=== PATIENT | female | born 1945 | race Caucasian/White ===

== ENCOUNTER 2020-04-07 15:20 | Outpatient (REF) | payer MEDICARE, SELFPAY ==
--- NOTE | 2020-04-07 15:22 | CT_ITS ---
EXAMINATION: CT CHEST WITHOUT CONTRAST CLINICAL INFORMATION: Follow-up pulmonary nodule COMPARISON: Previous chest CT scans most recent January 2015 and going back to June 2017 TECHNIQUE: Multidetector volumetric CT imaging of the chest was done. Axial MIP volume rendering provided. Sagittal and coronal reformatted images were obtained. This CT examination was performed using dose optimization techniques as appropriate, variously including the following: *Automated exposure control *Adjustment of mA and/or kV according to patient size (this includes techniques or standardized protocols for targeted exams where dose is matched to indication/reason for exam; i.e. extremities or head) *Use of iterative reconstruction technique DLP: 185 mGy-cm FINDINGS: LUNGS: There is a groundglass attenuation nodule in the right upper lobe. This is gradually increasing in size compared to prior exams. This measures 1 x 1.7 cm in AP and transverse dimension axial image 175 series 7 compared to 1.1 x 1.2 cm and measures 1.3 cm in longitudinal dimension sagittal reconstructed image 70 compared to 1 cm on January 2019 exam. There is a small partially calcified right upper lobe nodule measuring 3 mm axial image 132 series 7 that is stable. There is a 3 mm noncalcified right lower lobe nodule axial image 399 series 7 that is stable. No new pulmonary nodule is seen. MEDIASTINUM: There are no enlarged hilar or mediastinal lymph nodes. The heart does not appear enlarged. There is mild coronary artery calcification. There is no pericardial effusion. The thoracic aorta is normal in caliber. PLEURA: There is no pleural effusion. No pleural mass or thickening. AXILLA: No lymphadenopathy. UPPER ABDOMEN: The right kidney is absent. OSSEOUS STRUCTURES: There are degenerative changes of the spine. There is a sclerotic lesion in the left T10 vertebral bodies that is stable. CT/CT chest wo con IMPRESSION: Slight interval increase in size in the groundglass attenuation nodule in the right upper lobe. Other small pulmonary nodules are stable. Mild coronary artery calcification.
== END 2020-04-07 15:21 | disposition home or self-care (01) ==
LOC: HO.CT 15:20
PROVIDERS: PCP Family Medicine; Visit Provider Family Medicine
DX: R91.1 Solitary pulmonary nodule (principal)
CPT/HCPCS: 71250

== ENCOUNTER → 2020-12-12 12:43 | Outpatient (BNVA) | payer MEDICARE, SELFPAY | PROVIDERS: Referring Provider Family Medicine; Visit Provider Nurse Practitioner | DX: Z12.11 Encounter for screening for malignant neoplasm of colon (principal); J44.9 Chronic obstructive pulmonary disease, unspecified; I49.9 Cardiac arrhythmia, unspecified; Z80.0 Family history of malignant neoplasm of digestive organs | CPT/HCPCS: 99212 ==

== ENCOUNTER 2020-12-18 08:25 | Outpatient (REF) | payer MEDICARE, SELFPAY ==
[2020-12-18 08:57] LABS: MANUAL DIFF FLAG NO
[2020-12-18 09:00] LABS: Basophils Percent Auto 0.4 % (0-2); Eosinophils Absolute Auto 0.2 X10*3/uL (0.0-0.4); Eosinophils Percent Auto 1.4 % (0-4); Hematocrit 39.9 % (37-47); Hemoglobin 12.6 g/dl (12.0-16.0); Imm Gran Abs Auto 0.05 X10*3/uL (0.00-0.03); Imm Gran Pct Auto 0.4 % (0.0-0.4); Lymphocytes Absolute Auto 4.3 X10*3/uL (1.2-4.9); Lymphocytes Percent Auto 38.6 % (20-40); Mean Corpuscular HGB Conc 31.6 g/dl (31.0-35.0); Mean Corpuscular Hemoglobin 28.4 pg (27.0-33.0); Mean Corpuscular Volume 89.9 fL (80-98); Mean Platelet Volume 9.8 fL (9.4-12.3); Monocytes Absolute Auto 0.7 X10*3/uL (0.1-1.2); Monocytes Percent Auto 6.3 % (2-11); Neutrophils Absolute Auto 5.9 X10*3/uL (2.0-8.3); Neutrophils Percent Auto 52.9 % (45-73); Platelet Count 336 X10*3/uL (160-400); Red Blood Count 4.44 X10*6/uL (4.20-5.50); Red Cell Distribution Width 14.1 % (11.0-16.0); White Blood Count 11.2 X10*3/uL (4.8-10.8)
[2020-12-18 09:41] LABS: Alanine Aminotransferase 10 U/L (0-31); Albumin Level 4.4 g/dL (3.5-5.0); Alkaline Phosphatase 67 U/L (39-117); Anion Gap 12 (12-20); Aspartate Amino Transferase 13 U/L (5-31); Bilirubin Total 0.4 mg/dL (0.0-1.0); Blood Urea Nitrogen 13 mg/dL (9-16); Calcium 9.4 mg/dL (8.4-10.2); Carbon Dioxide 28 mmol/L (22-29); Chloride 104 mmol/L (96-108); Estimated Glomerular Filt Rate > 60; Glucose Random 122 mg/dL (60-115); Potassium 4.9 mmol/L (3.3-5.1); Sodium 139 mmol/L (135-145)
== END 2020-12-18 08:26 | disposition home or self-care (01) ==
LOC: HO.LAB 08:25
PROVIDERS: PCP Family Medicine; Visit Provider Nurse Practitioner
DX: Z12.11 Encounter for screening for malignant neoplasm of colon (principal); Z80.0 Family history of malignant neoplasm of digestive organs
CPT/HCPCS: 36415; 80053; 85025

== ENCOUNTER 2021-06-02 10:26 | Outpatient (REF) | payer MEDICARE, SELFPAY ==
--- NOTE | ~2021-06-02 | MM_ITS ---
EXAMINATION: MM SCREENING DIGITAL BREAST TOMOSYNTHESIS, BILATERAL CLINICAL INFORMATION: Screening. Asymptomatic. The lifetime risk of breast cancer based on the Tyrer-Cuzick Model is 2%. COMPARISON: Mammography: 12/26/2018, 11/04/2017, 04/27/2016 TECHNIQUE: Digital breast tomosynthesis is performed in both the craniocaudal and mediolateral oblique views along with computer-aided detection (CAD). Synthesized 2D images are generated from the tomosynthesis. Additional bilateral CC views are provided. FINDINGS: There are scattered areas of fibroglandular density (ACR BI-RADS breast composition Category b). Breast tissue composition borders on predominantly fatty. Background stromal and fibroglandular densities are stable. There is no interval mass or architectural abnormality. Again, there are scattered bilateral ductal secretory and vascular and a few punctate round calcifications. No significant calcifications. The axilla and skin contours are unremarkable. MM/MM tomosynthesis screening BI IMPRESSION: No mammographic evidence of malignancy. ASSESSMENT: BI-RADS 2: Benign RECOMMENDATION: Routine annual mammography screening. This patient's information was entered into a reminder system with a target due date for their next mammogram.
== END 2021-06-02 10:27 | disposition home or self-care (01) ==
LOC: HO.MAMMO 10:26
PROVIDERS: PCP Family Medicine; Visit Provider Family Medicine
DX: Z12.31 Encounter for screening mammogram for malignant neoplasm of breast (principal)
CPT/HCPCS: 77063; 77067

== ENCOUNTER 2021-08-31 08:08 | Day surgery (SDC) | payer MEDICARE, SELFPAY ==
--- NOTE | 2021-08-31 09:18 | MHC.SHP ---
Pre-Procedural Eval Section A Date of Service: 08/31/21 Section B Chief Complaint: screening Details of Present Illness: Colon cancer screening, family history of colon cancer Relevant Family History (Specify if Yes): Yes Relevant Social History: Tobacco Use Present Medications: see Short Stay Collaborative assessment Medical History: Significant History (Arrhythmia COPD (chronic obstructive pulmonary disease) Depression Elevated cholesterol GERD (gastroesophageal reflux disease) HTN (hypertension) Hx of renal calculi Pre-diabetes) History of Previous Operations: Relevant previous surgery/procedure and date(s) (History of right nephrectomy Hx of cholecystectomy Hx of colonoscopy Hx of hysterectomy) Allergies: Allergies Allergy/AdvReac Type Severity Reaction Status Date / Time No Known Allergies Allergy Verified 08/26/21 09:38 [No Known Allergies*] Review of Systems Sugical H&P ROS: Negative: Constitution, Cardiovascular, Respiratory and Gastrointestinal Exam Surgical H&P Exam: Normal: Heart, Normal: Lungs, Normal: Extremities and Normal: Abdomen Plan Diagnosis/Plan: Unchanged I have reviewed the history and physical and performed a pertinent physical examination on my patient. No changes have occurred unless specified.
--- NOTE | 2021-08-31 09:21 | P.OP_ITS ---
Operative Note Operative Note Date of Service: 08/31/21 Narrative: Pre-op diagnosis: Colon cancer screening, family history of colon cancer (sister of colon cancer at age 57 Yrs) Post-op diagnosis:?other (Colon polyps, diverticulosis, hemorrhoid) Procedure: COLONOSCOPY TILL CECUM WITH SNARE POLYPECTOMY AND HEMOCLIP PLACEMENT Consent: Indications for the procedure and potential complications of bleeding, perforation, reaction to medications and missed diagnosis were discussed with the patient and informed consent was obtained. Instrument: Olympus CF H 190 L variable stiffness adult colonoscope Monitoring: Vital signs and clinical assessment, intermittent blood pressure monitoring, continuous EKG monitoring, Pulse oximetry and Carbon Dioxide monitoring were done throughout the procedure. Colon withdrawl time was 14 minutes. Procedure: The patient was placed in the left lateral decubitis position and pre-procedure medications were administered. After a digital rectal examination of the ano-rectum, the video colonoscope was inserted into the rectum and advanced through the colon to the cecum. The colonoscope was slowly withdrawn in a retrograde panoramic fashion and the colon mucosa was carefully examined including a retroflexed view of the rectum. Findings and interventions are described below. Procedure Difficulty:? LLQ pressure applied to intubate the cecum Findings: Terminal Ileum: Not evaluated Cecum:? Patially evaluated due to fair to poor prep in the right colon Ascending Colon:? Patially evaluated due to fair to poor prep in the right colon Transverse Colon:? Normal Descending Colon:? Normal Sigmoid Colon:? Moderate diverticulosis Rectum:? A 10 mm sessile polyp seen on retroflexed exam of the rectum removed with a cold snare. Some bleeding noted from the polypectomy site controlled with placement of a hemoclip. A few 4-5 mm diminutive polyps in the rectum - hyperplastic on past biopsies. Ano-rectum:? Moderate internal hemorrhoids Colon preparation:? Good after copious irrigation in the left colon and Fair to poor in the right colon Impression and Post Procedure Diagnosis: Colonoscopy Findings: One medium sized polyp removed Moderate diverticulosis seen in the sigmoid colon Moderate hemorrhoids on retroflexed exam. Plan: Await pathology results Patient has an appointment on 09/11/21 in the GI Clinic with? Nahomi Mario NP. Repeat Colonoscopy interval based on path results - in 3 years if polyps are ad enomatous and due to fair to poor prep (Dulcolax 2 tablets daily x 5 days before colonoscopy and adult colonoscope for future colonoscopies). Above findings were reviewed with the patient and colon polyps and diverticulosis handouts were given in the discharge area Surgeon: Dorian Mcbride MD Anesthesia:?MAC (Dr Barrientos) Was an Final Inspector Balance Wheel used for this Procedure?:?No Final Inspector Balance Wheel:?Yadira Womack Estimated blood loss (mL):?1 Pathology:?other (A. rectal polyp) Condition:?stable Disposition:?PACU
--- NOTE | 2021-08-31 09:39 | P.CONAN_ITS ---
[facility] Active Problems Active Problems: All Active Problems (Updated 08/26/21 @ 10:02 by Wanda Horne RN) Colon cancer screening (Acute) Family history of colon cancer (Acute) Arrhythmia (Acute) COPD (chronic obstructive pulmonary disease) (Acute) Past Medical History Medical History Allergic rhinitis Arrhythmia COPD (chronic obstructive pulmonary disease) Depression Elevated cholesterol GERD (gastroesophageal reflux disease) HTN (hypertension) Hx of renal calculi Pre-diabetes Smoker Surgical History Surgical History History of right nephrectomy Hx of cholecystectomy Hx of colonoscopy Hx of hysterectomy History of Problems with Anesthesia: No Social History Social History Patient Tobacco Use Status: Current everyday Tobacco user Tobacco use type: Cigarette Cigarette Packs Per Day: 1 Cigarettes Per Day: 5 Years Smoked: 50 Second Hand Smoke Exposure: No Use of substances other than those prescribed or required for medical reasons: No Are you DNR?: No Advance Directives: No Advance Directives Information Provided: Yes Meds Allergies Allergy/AdvReac Type Severity Reaction Status Date / Time No Known Allergies Allergy Verified 08/31/21 09:43 [No Known Allergies*] Home Medications Medication Instructions Recorded Confirmed Last Taken Type albuterol sulfate 90 mcg/actuation 2 puff INHALATION Q4-6H PRN 02/13/20 08/26/21 Unknown History aerosol inhaler (ProAir HFA) amitriptyline 75 mg tablet 75 mg PO BEDTIME 02/13/20 08/26/21 Unknown History aspirin 81 mg tablet 81 mg PO DAILY 02/13/20 08/26/21 Unknown History cetirizine 10 mg tablet 10 mg PO DAILY 02/13/20 08/26/21 Unknown History cholecalciferol (vitamin D3) 25 25 mcg PO DAILY 02/13/20 08/26/21 Unknown History mcg (1,000 unit) tablet (Vitamin D3) docusate sodium 100 mg capsule 100 mg PO BEDTIME 02/13/20 08/26/21 Unknown History hydrochlorothiazide 25 mg tablet 25 mg PO DAILY 02/13/20 08/26/21 Unknown History hydroxyzine HCl 25 mg tablet 25 mg PO TID PRN 02/13/20 08/26/21 Unknown History losartan 100 mg tablet 100 mg PO DAILY 02/13/20 08/26/21 Unknown History sertraline 25 mg tablet 25 mg PO DAILY 02/13/20 08/26/21 Unknown History simvastatin 20 mg tablet 20 mg PO BEDTIME 02/13/20 08/26/21 Unknown History tiotropium bromide 18 mcg capsule 1 cap INHALATION DAILY 02/13/20 08/26/21 Unkno wn History with inhalation device (Spiriva with HandiHaler) trazodone 150 mg tablet 150 mg PO BEDTIME 02/13/20 08/26/21 Unknown History fluticasone propionate 110 1 puff INHALATION BID 08/26/21 08/26/21 Unknown History mcg/actuation HFA aerosol inhaler (Flovent HFA) Exam Exam Date and Time: August 31, 2021 0939 Airway Mallampati Class: III TM Dist: >3cm Neck ROM: Full Denture: Upper Loose/Missing/Broken Teeth: Yes and Upper Heart: RRR Lungs: CTA Assessment and Plan Assessment Anesthesia Assessment: Anesthesia Plan Discussed and Chart Reviewed Final Anesthetic Review History of Problems with Anesthesia: No NPO: Yes ASA Class: III Final Preanesthetic Review: Meds/Allgs Chart Reviewed, Consent Obtained/Reviewed and Anes Risks/Benef Reviewed Patient Risk: Intermediate Procedure Risk: Low Anesthetic Plan Anesthetic Plan: MAC: Disposition: Standard PACU
[2021-08-31 09:45] VITALS: BMI 31.4
[2021-08-31 09:59] VITALS: BP 162/63; PULSE 70; RESP 16; TEMP 36.6; O2SAT 98
[2021-08-31] MEDS: Albuterol Sulfate (0.083%) 2.5 MG/3 ML VIAL.NEB INHALE (10:14)
[2021-08-31 10:17] VITALS: PULSE 67; RESP 18; O2SAT 95
[2021-08-31 11:07] VITALS: BP 116/51; PULSE 67; RESP 20; TEMP 36.6; O2SAT 99
[2021-08-31 11:22] VITALS: BP 128/77; PULSE 67; RESP 16; TEMP 36.6; O2SAT 98
== END 2021-08-31 12:21 | disposition home or self-care (01) ==
PROVIDERS: PCP Family Medicine; Visit Provider Internal Medicine Gastroenterology
PROC: 0DJD8ZZ Inspection of Lower Intestinal Tract, Via Natural or Artificial Opening Endoscopic (ICD-10-PCS; CPT 45378; principal; 2021-08-31 10:00)
DX: Z12.11 Encounter for screening for malignant neoplasm of colon (principal); Z86.010 Personal history of colon polyps; Z80.0 Family history of malignant neoplasm of digestive organs; D12.8 Benign neoplasm of rectum; K57.30 Diverticulosis of large intestine without perforation or abscess without bleeding; K64.8 Other hemorrhoids; J44.9 Chronic obstructive pulmonary disease, unspecified; E78.00 Pure hypercholesterolemia, unspecified; I49.9 Cardiac arrhythmia, unspecified; R73.03 Prediabetes; J30.9 Allergic rhinitis, unspecified; Z90.49 Acquired absence of other specified parts of digestive tract; Z90.5 Acquired absence of kidney; F17.210 Nicotine dependence, cigarettes, uncomplicated
CPT/HCPCS: 45385; 88305

== ENCOUNTER → 2021-09-15 13:07 | Outpatient (BNVA) | payer MEDICARE, SELFPAY | PROVIDERS: PCP Family Medicine; Visit Provider Nurse Practitioner | DX: D12.6 Benign neoplasm of colon, unspecified (principal); Z80.0 Family history of malignant neoplasm of digestive organs | CPT/HCPCS: 99212 ==

== ENCOUNTER 2021-09-24 12:34 | Outpatient (REF) | payer MEDICARE, SELFPAY ==
--- NOTE | ~2021-09-24 | CT_ITS ---
EXAMINATION: CT CHEST WITHOUT CONTRAST CLINICAL INFORMATION: Follow up lung nodule. COMPARISON: CT of the chest done on 04/07/2020, 01/11/2019 and baseline study dated 07/06/2017. TECHNIQUE: Multidetector volumetric CT imaging of the chest was done. Axial MIP volume rendering provided. Sagittal and coronal reformatted images were obtained. This CT examination was performed using dose optimization techniques as appropriate, variously including the following: *Automated exposure control *Adjustment of mA and/or kV according to patient size (this includes techniques or standardized protocols for targeted exams where dose is matched to indication/reason for exam; i.e. 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 LUNGS: The index groundglass nodule (181:7) at right upper lobe of the lung posterolateral-superiorly adjacent to the right major fissure is reidentified, currently measures approximately 2.0 cm at its maximum dimension, previously 1.4 cm (my measurement). Specific note is made of interval development of solid nodular component. The findings are concerning for evolving lung neoplasm (in the adenocarcinomatous spectrum). Follow-up interventional radiology consultation for possible image guided biopsy and/or PET CT study as appropriate is recommended. Persistent stable sub-5 mm nodule within the right lung apex posteriorly (140:7), right lower lobe of the lung posteromedially (408: 7), and subtle nodular opacity at the superior segment of the left lower lobe of the lung posteromedially (232:7) appear unchanged. MEDIASTINUM: There are no pathologically enlarged mediastinal or hilar lymphadenopathy, unchanged. Atherosclerotic aorta and coronary arterial calcifications appears stable. No evidence of any pericardial effusion. No evidence of any aortic aneurysm. PLEURA: There is no pleural effusion. No pleural mass or thickening. AXILLA: No lymphadenopathy. UPPER ABDOMEN: Postsurgical changes are noted within the right of the right kidney similar to prior study dated 04/07/2020. No of any soft tissue mass to suspect local disease recurrence at the surgical bed. There is no adrenal mass present. OSSEOUS STRUCTURES: Persistent stable sclerotic lesion at T10 vertebral body, unchanged since 07/06/2017. CT/CT chest wo con IMPRESSION: 1. Abnormal study. The indexed groundglass nodule at right upper lobe of the lung posterolaterally-superiorly adjacent to the right major fissure is reidentified, shows interval increase in size as well as interval development of a solid nodular component, suspicious for evolving lung neoplasm (in the adenocarcinomas spectrum). Follow-up interventional radiology consultation for possible image guided biopsy and/or PET CT study as appropriate is recommended. 2. No CT evidence of any abnormal mediastinal or hilar lymphadenopathy. No other significant interval change since most recent prior study dated 04/07/2020. Fleischner guidelines were followed.
== END 2021-09-24 12:35 | disposition home or self-care (01) ==
LOC: HO.CT 12:34
PROVIDERS: Visit Provider Family Medicine
DX: R91.1 Solitary pulmonary nodule (principal)
CPT/HCPCS: 71250

== ENCOUNTER → 2021-10-09 08:57 | Outpatient (BNVA) | payer MEDICARE, SELFPAY | PROVIDERS: PCP Family Medicine; Visit Provider Surgery | DX: R91.1 Solitary pulmonary nodule (principal); F17.210 Nicotine dependence, cigarettes, uncomplicated; Z71.6 Tobacco abuse counseling | CPT/HCPCS: 99202 ==

== ENCOUNTER 2021-10-14 14:51 | Outpatient (REF) | payer OTHER, SELFPAY ==
--- NOTE | 2021-10-14 15:43 | PFT_ITS ---
INDICATION: Lung nodule. SPIROMETRY: FEV1 to FVC of 83% with an FEV1 of 1.63 L, which is 78% of predicted and an FVC of 1.87 L which is 72% of predicted. No significant response to bronchodilators noted. Maximum voluntary ventilation 59% predicted. LUNG VOLUMES: Total lung capacity 68% predicted. DIFFUSION CAPACITY: DLCO 58% predicted. Take note that the diffusion capacity does correct to 84% when corrected for the alveolar volume. COMPARISON: No PFTs available. INTERPRETATION: There is no obstructive ventilatory defect. No significant response to bronchodilators noted. Moderate decrease in maximum voluntary ventilation secondary to deconditioning, although cannot rule out neuromuscular conditions. The patient does have a restrictive ventilatory defect consistent with mild restrictive lung disease. In addition to that, there is a moderate diffusion impairment. This diffusion impairment does correct to normal when correcting for the alveolar volume. Clinical correlation warranted. Fred Garcia MD MR/MODL / [id number]
== END 2021-10-14 14:52 | disposition home or self-care (01) ==
LOC: HO.RESP 14:51
PROVIDERS: PCP Family Medicine; Visit Provider Surgery
DX: Z01.818 Encounter for other preprocedural examination (principal); R91.1 Solitary pulmonary nodule
CPT/HCPCS: 94060; 94727; 94729

== ENCOUNTER → 2021-10-21 09:49 | Outpatient (BNVA) | payer OTHER, SELFPAY | PROVIDERS: PCP Family Medicine; Referring Provider Family Medicine; Visit Provider Internal Medicine Cardiovascular Disease | DX: Z01.810 Encounter for preprocedural cardiovascular examination (principal); I10 Essential (primary) hypertension; F17.210 Nicotine dependence, cigarettes, uncomplicated | CPT/HCPCS: 93005; 99202 ==

== ENCOUNTER → 2021-10-26 07:21 | Outpatient (REF) | payer OTHER, SELFPAY ==
--- NOTE | ~2021-10-26 | NM_ITS ---
Exercise Myocardial perfusion study Indication: Chest pain and preoperative cardiovascular risk stratification Technique: The patient was brought in for an exercise perfusion study on 10/26/2021. Patient performed exercise as per Galo protocol and was injected 30 mCi of sestamibi was given intravenously one target HR was achieved. Images were obtained using the SPECT gamma camera interlaced with the gating device. Images were obtained in supine position. Resting perfusion study was performed on 10/27/2021. Patient was administered 30 mCi of sestamibi intravenously at rest. Images were then obtained in supine position. Images obtained with and without CT attenuation. Total DLP 111 mGy-cm. Images were processed with the software and compared side to side in short axis, horizontal long axis and vertical long axis views. Findings: The stress perfusion study showed both attenuated as well as non attenuated images show normal uptake of radiotracer in all segments of LV myocardium. The gated study shows normal LV systolic function with calculated LVEF of 71%. LV cavity is normal in in size. The gated study shows normal systolic wall thickening and contraction of all segments. There is no transient ischemic dilation. Resting study shows non attenuated images show normal uptake of radiotracer in all segments of LV myocardium. Gating at rest reveals normal systolic wall motion with ejection fraction at 73%. The findings are consistent with normal myocardial perfusion. NM/NM cardiolite stress test Impression: 1. Normal myocardial perfusion 2. Gated LVEF is 71% 3. Transient ischemic dilatation not present Stress EKG is negative for ischemia at workload achieved
--- NOTE | 2021-10-26 07:25 | CA_ITS ---
Acquisition Time: 2021-10-26 08:19:06 Total Exercise Time: 00:05:00 Test Indications: Pre-Op Evaluation Medications: AMLODIPINE ASA ALBUTEROL CETRIZINE FLOVENT FLONASE HCTZ LOSARTAN SIMVASTATIN TRAZADONE Protocol: DOUG Max HR: 134 BPM 93% of Pred: 143 BPM Max BP: 150/070 mmHG Max Work Load: 5.6 METS Exercise stress test with exercise 5 min of Doug protocol, ( last 1.5 min speed reduced to 2 mph) achieving 93% MPHR, with mild sob, no chest discomfort, with isolated PVC, with normotensive response to exercise, without EKG changes meeting criteria for ischemia. Nuclear images pending. Test reviewed with Dr La Referred By: Bala La Overread By: ANGIE LOVETT
--- NOTE | 2021-10-26 07:25 | CA_ITS ---
Transthoracic Echocardiogram Patient (Last, First, Middle): Kim Hood, Gender: Female Date of : 1945 Age: 76 Procedure Date: 10/26/2021 Procedure Type: Transthoracic Echocardiogram Location: OP Height: 162.56 cm Weight: 88.91 kg BSA: 1.94 m2 Heart Rate: bpm BP: 138 / 82 mmHg Lithographing Machine Operator: MEGHANA Referring MD: Bala La MD Network Technical Analyst: Bala La MD Symptoms: Z01.810 - Encounter for preprocedural cardiovascular examination Study Quality: Fair ECG Rhythm: Sinus Conclusions: - 1. Normal LV systolic function with impaired relaxation filling pattern 2. Normal cardiac valvular Doppler 3. Normal RV systolic pressure 4. No gross pericardial effusion Findings Left Ventricle Normal left ventricular size, thickness, and systolic function. The visually estimated ejection fraction is between 60-65%. Spectral Doppler is indicative of an impaired relaxation filling pattern. E/E prime ratio is between 8 and 15 consistent with indeterminate filling pressures. Wall Motion Rest Echo Findings The basal inferior and basal inferoseptal segments are hypokinetic. All other scored wall segments showed normal motion. Right Ventricle Normal right ventricular cavity size and systolic function. Atria The left atrium is normal in size. There is lipomatous hypertrophy of the interatrial septum. Interatrial shunt cannot be excluded. Aortic Valve The aortic valve was not well visualized. There is no aortic valve stenosis. There is no aortic valve regurgitation. Mitral Valve Likely normal mitral valve structure and function. There is trace mitral valve regurgitation. There is no mitral valve stenosis. Pulmonic Valve The pulmonic valve was not well visualized. Tricuspid Valve Likely normal tricuspid valve structure and function. There is trace tricuspid valve regurgitation. The right ventricular systolic pressure is normal. The right ventricular systolic pressure is 22 mmHg. Normal right atrial pressure. There is no evidence of pulmonary hypertension. Great Vessels The aorta was not well visualized. The pulmonary artery was not well visualized. Venous The inferior vena cava is normal in size and collapses greater than 50% with inspiration. Pericardium/Pleural There is no evidence of pericardial effusion. Prior Study Comparison No prior study available for comparison. Measurements 2D Linear Measurements IVSd: 1.07 0.6-0.9/0.6-1.0 cm LVIDd: 4.25 3.9-5.3/4.2-5.9 cm LVIDd Index: 2.19 2.4-3.2/2.2-3.1 cm/m2 LVIDs: 3.14 2.0-3.6 cm LVPWd: 0.90 0.7-1.1 cm LA Diam: 2.70 2.7-3.8/3.0-4.0 cm LAIDs Index: 1.39 1.5-2.3 cm/m2 LV Mass: 170.31 67-162/88-224 g LV Mass Index: 87.79 43-95/49-115 g/m2 LVOT Diam: 2.00 3.0+(-)1.3 cm 2D Systolic Function EF 4C: 62.90 >55% EF 2C: 64.90 >55% EF BiP: 63.40 >55% Mitral Valve MV Pk E: 0.85 MV PK A: 1.01 MV Decel Time: 235.00 E/A: 0.80 E'Lateral: 10.10 E'Medial: 8.05 E/E' Med: 10.50 E/E' Lat: 8.40 PHT: 69.00 MVA PHT: 3.19 Decel Gooding: 3.61 Aortic Valve AoV Pk Abundio: 1.62 AoV Mn Abundio: 1.12 AoV VTI: 0.35 AoV Pk Grad: 10.00 Aov Mn Grad: 6.00 FEDERICO Cont.VTI: 2.42 LVOT LVOT Pk Abundio: 1.15 LVOT Mn Abundio: 0.78 LVOT VTI: 0.27 LVOT Pk Grad: 5.00 LVOT Mn Grad: 3.00 LVOT Diam: 2.00 LVOT Area: 3.14 Diastolic Function MV Pk E: 0.85 MV Pk A: 1.01 E/A: 0.80 E'Medial: 8.05 E/E' Med: 10.50 E' Laterial: 10.10 E/E' Lat: 8.40 Right Ventricle TAPSE (mm): 17.90 TVS' Abundio: 10.30 Tricuspid Valve TR Pk Abundio: 2.16 TR Pk Grad: 19.00 RA Press: 3.00 RVSP: 22.00 Great Vessels Aorta Sinus of Valsalva: 3.23 2.0-3.5 cm Ao Asc: 3.40 2.1-3.4 cm Ao Arch: 2.90 Updated in Other Vendor System with Status of Final Bala La MD electronically signed on 10/26/2021 4:35:41 PM with status of Final
== END ==
LOC: HO.CARD 07:21
PROVIDERS: Visit Provider Internal Medicine Cardiovascular Disease
DX: Z01.810 Encounter for preprocedural cardiovascular examination (principal); R07.9 Chest pain, unspecified
CPT/HCPCS: 78452; 93017; 93306; A9500

== ENCOUNTER → 2021-10-28 09:58 | Outpatient (BNVA) | payer OTHER, SELFPAY | PROVIDERS: PCP Family Medicine; Visit Provider Hospitalist | DX: Z01.811 Encounter for preprocedural respiratory examination (principal); J44.9 Chronic obstructive pulmonary disease, unspecified; R91.1 Solitary pulmonary nodule; F17.210 Nicotine dependence, cigarettes, uncomplicated | CPT/HCPCS: 99202 ==

== ENCOUNTER → 2022-02-25 09:41 | Outpatient (BNVA) | payer OTHER, SELFPAY | PROVIDERS: PCP Family Medicine; Visit Provider Hospitalist | DX: C34.90 Malignant neoplasm of unspecified part of unspecified bronchus or lung (principal); J44.9 Chronic obstructive pulmonary disease, unspecified; R91.1 Solitary pulmonary nodule | CPT/HCPCS: 99212 ==

== ENCOUNTER 2022-05-13 09:36 | Outpatient (REF) | payer OTHER, SELFPAY ==
--- NOTE | ~2022-05-13 | CT_ITS ---
EXAMINATION: CT CHEST WITHOUT CONTRAST CLINICAL INFORMATION: Solitary pulmonary nodule COMPARISON: CT chest 09/24/2021 TECHNIQUE: Multidetector volumetric CT imaging of the chest was done. Axial MIP volume rendering provided. Sagittal and coronal reformatted images were obtained. This CT examination was performed using dose optimization techniques as appropriate, variously including the following: *Automated exposure control *Adjustment of mA and/or kV according to patient size (this includes techniques or standardized protocols for targeted exams where dose is matched to indication/reason for exam; i.e. extremities or head) *Use of iterative reconstruction technique DLP: 217 mGy-cm FINDINGS: LABOR OPERATOR: Expanded lungs without acute process. LUNGS: Previously seen right upper lobe groundglass 2 cm nodule has been surgically removed. There are postsurgical changes along the right upper lobe with reduction of right lung volume and mild ipsilateral mediastinal shift. The right upper lobe fine nodule posterior apex and right lower lobe nodule described on the previous study are not visualized at this time. Nodule described in the left upper lobe is also not visualized. No new nodules visualized MEDIASTINUM: The heart size and the great vessels are normal caliber. No pericardial effusion seen. No abnormal size mediastinal or hilar lymph nodes seen. Central trachea and the bronchi widely patent. Thyroid lobes are symmetrical and normal. CORONARY ARTERY CALCIFICATION: Trace coronary artery calcification is seen. PLEURA: There is no pleural effusion. No pleural mass or thickening. AXILLA: No lymphadenopathy. UPPER ABDOMEN: Visualized liver, spleen, pancreas and bilateral adrenal glands are unremarkable. OSSEOUS STRUCTURES: There is mild ventral spondylosis throughout dorsal spine. No aggressive lytic or sclerotic process seen. There is a sclerotic lesion T10 vertebra question bone island. CT/CT chest wo IV con IMPRESSION: Status post right upper lobe partial resection with postoperative changes. Previously seen 2 cm groundglass nodule and right lung apex fine nodules are not visualized at this time. Also previously visualized left lower lobe nodule is not seen at this time. No new nodules. No abnormal mediastinal or axillary lymphadenopathy. Fleischner guidelines were followed.
== END 2022-05-13 09:37 | disposition home or self-care (01) ==
LOC: HO.CT 09:36
PROVIDERS: PCP Family Medicine; Visit Provider Hospitalist
DX: R91.1 Solitary pulmonary nodule (principal)
CPT/HCPCS: 71250

== ENCOUNTER → 2022-05-21 08:52 | Outpatient (BNVA) | payer OTHER, SELFPAY | PROVIDERS: PCP Family Medicine; Visit Provider Surgery | DX: C34.11 Malignant neoplasm of upper lobe, right bronchus or lung (principal); Z87.891 Personal history of nicotine dependence | CPT/HCPCS: 99212 ==

== ENCOUNTER 2022-06-08 10:00 | Outpatient (REF) | payer OTHER, SELFPAY ==
--- NOTE | ~2022-06-08 | MM_ITS ---
EXAMINATION: MM SCREENING DIGITAL BREAST TOMOSYNTHESIS, BILATERAL CLINICAL INFORMATION: Screening. Asymptomatic. The lifetime risk of breast cancer based on the Tyrer-Cuzick Model is 1%. COMPARISON: Mammography: 06/02/2021, 12/26/2018, 11/04/2017 TECHNIQUE: Digital breast tomosynthesis is performed in both the craniocaudal and mediolateral oblique views along with computer-aided detection (CAD). Synthesized 2D images are generated from the tomosynthesis. Additional bilateral MLO views are provided. FINDINGS: There are scattered areas of fibroglandular density (ACR BI-RADS breast composition Category b). There is no developing density or architectural abnormality. Again, scattered bilateral vascular and ductal secretory calcifications are present. There are no significant masses, abnormal calcifications, or other abnormalities. The axilla are unremarkable. No significant changes. MM/MM tomosynthesis screening BI IMPRESSION: No mammographic evidence of malignancy. ASSESSMENT: BI-RADS 2: Benign RECOMMENDATION: Routine annual mammography screening. This patient's information was entered into a reminder system with a target due date for their next mammogram.
== END 2022-06-08 10:01 | disposition home or self-care (01) ==
LOC: HO.MAMMO 10:00
PROVIDERS: PCP Family Medicine; Visit Provider Family Medicine
DX: Z12.31 Encounter for screening mammogram for malignant neoplasm of breast (principal)
CPT/HCPCS: 77063; 77067

== ENCOUNTER → 2022-09-29 09:56 | Outpatient (BNVA) | payer OTHER, SELFPAY | PROVIDERS: PCP Family Medicine; Visit Provider Hospitalist | DX: J44.9 Chronic obstructive pulmonary disease, unspecified (principal); R91.8 Other nonspecific abnormal finding of lung field; C34.90 Malignant neoplasm of unspecified part of unspecified bronchus or lung; F17.210 Nicotine dependence, cigarettes, uncomplicated; Z90.2 Acquired absence of lung [part of] | CPT/HCPCS: 99212 ==

== ENCOUNTER 2022-12-17 12:40 | Outpatient (REF) | payer OTHER, SELFPAY ==
--- NOTE | ~2022-12-17 | CT_ITS ---
EXAMINATION: CT CHEST WITHOUT CONTRAST CLINICAL INFORMATION: Malignant neoplasm of unspecified part. COMPARISON: CT chest 09/24/2021 and 05/21/2022. TECHNIQUE: Multidetector volumetric CT imaging of the chest was done. Axial MIP volume rendering provided. Sagittal and coronal reformatted images were obtained. This CT examination was performed using dose optimization techniques as appropriate, variously including the following: *Automated exposure control *Adjustment of mA and/or kV according to patient size (this includes techniques or standardized protocols for targeted exams where dose is matched to indication/reason for exam; i.e. extremities or head) *Use of iterative reconstruction technique DLP: 208 mGy-cm FINDINGS: CORONER: Well-expanded lungs. LUNGS: There is a right upper lobe wedge resection or lobectomy changes. Previously seen ground-glass density in the right upper lobe posterior segment has been surgically removed. There is a 3 mm nodule right lower lobe posterior basal segment axial image 318/5. It measured 2 mm on the last 2 exams. Last exam best visualized on image 65/8 and exam 09/24/2021 visualized and 95/8. No additional nodules visualized. MEDIASTINUM: The thyroid lobes are symmetrical and normal. Central trachea and the bronchi are widely patent. Heart size and the great vessels are normal caliber. No pericardial effusion seen. No abnormal size mediastinal or hilar lymphadenopathy seen. CORONARY ARTERY CALCIFICATION: No coronary artery calcifications visualized. PLEURA: There is no pleural effusion. No pleural mass or thickening. AXILLA: No lymphadenopathy. UPPER ABDOMEN: There is mild hepatomegaly but otherwise unremarkable. There are cholecystectomy changes. Spleen, bilateral adrenal glands and the pancreas are grossly unremarkable. OSSEOUS STRUCTURES: No aggressive lytic or sclerotic process seen. There is [id number] ventral spondylosis. CT/CT chest wo IV con IMPRESSION: 1. Postsurgical changes right upper lobe. Previously seen ground-glass density in the right upper lobe has been surgically removed. 2. There is a 3 mm nodule in the right lower lobe posterior basal segment. It measures 2 mm on the last 2 exams. No additional nodules seen. Recommend continued yearly follow-up. 3. No abnormal mediastinal or axillary lymphadenopathy seen. Fleischner guidelines were followed.
== END 2022-12-17 12:41 | disposition home or self-care (01) ==
LOC: HO.CT 12:40
PROVIDERS: Visit Provider Surgery
DX: C34.90 Malignant neoplasm of unspecified part of unspecified bronchus or lung (principal)
CPT/HCPCS: 71250

== ENCOUNTER 2022-12-31 08:46 | Outpatient (AMB) | payer OTHER, SELFPAY ==
--- NOTE | 2022-12-31 09:07 | MHC.OFFVIS ---
Intake Vital Signs 12/31/22 09:12 Height 5 ft 4 in Weight 216 lb BMI 37.1 BP 130/70 Blood Pressure Location Lt brachial Position Sitting Pulse 78 Pulse Oximetry (%) 98 Intake Visit Reasons: 6 month follow up Allergies No Known Allergies [No Known Allergies*] Allergy (Verified 12/31/22 09:07) Medication List - Last Reconciled 12/31/22 by Marj Nicole MD albuterol sulfate 90 mcg/actuation (ProAir HFA) 2 puffs inhalation Q6H PRN amitriptyline 75 mg PO BEDTIME aspirin 81 mg PO DAILY cetirizine 10 mg PO DAILY cholecalciferol (vitamin D3) (Vitamin D3) 25 mcg PO DAILY docusate sodium 100 mg PO BEDTIME fluticasone propionate 50 mcg/actuation 1 spray intranasal DAILY hydroxyzine HCl 25 mg PO TID PRN losartan 100 mg PO DAILY sertraline 25 mg PO DAILY simvastatin 20 mg PO BEDTIME trazodone 150 mg PO BEDTIME umeclidinium-vilanterol 62.5-25 mcg/actuation (Anoro Ellipta) 1 inh inhalation DAILY HPI 6 month follow up HPI Details 77-year-old woman former smoker who was found to have a mixed solid ground-glass nodule in the right upper lobe suspicious for low-grade malignancy back in October of 2021.? This had increased in density over time.? At that point we discussed surgical resection versus needle biopsy and she opted for surgical resection.? On 11/11/2021 she underwent a navigational bronchoscopy with dye marking, right upper lobe wedge resection with completion right upper lobectomy, mediastinal lymphadenectomy, and placement of on Q paravertebral pain catheter.? She did quite well postoperatively and is here for her 1st six-month follow-up visit after CT scan.? The CT scan was done on 05/13/2022 which was reviewed by me directly not officially read yet but shows to me no evidence of recurrence or new disease.? There is no pleural fluid and there is no mediastinal lymphadenopathy. Six-month follow-up CT scan done on 12/17/2022 shows no evidence of new nodules or evidence of recurrence. There is no lymphadenopathy and no pleural fluid. She denies any pain, shortness of breath, cough, hemoptysis, fevers, chills, or unintentional weight loss.? She denies any new neurologic symptoms. ? PFSH Medical History Allergic rhinitis Colon polyp COPD (chronic obstructive pulmonary disease) Depression Family history of colon cancer GERD (gastroesophageal reflux disease) HLD (hyperlipidemia) HTN (hypertension) Hx of renal calculi Lung cancer (~2021) Pre-diabetes Smoker Surgical History History of cholecystectomy (~2018) History of colonoscopy (~2021) History of hysterectomy (~1974) History of lobectomy of lung (~2021) History of right nephrectomy (~1986) Family History Father No problems noted. Mother No problems noted. Social History Patient Tobacco Use Status: Current everyday Tobacco user Tobacco use type: Cigarette Cigarette Packs Per Day: 1 Cigarettes Per Day: 10 Years Smoked: 50 Second Hand Smoke Exposure: No Physical Exam Vital Signs: Last Vital Signs Pulse 78 12/31/22 09:12 BP 130/70 12/31/22 09:12 Pulse Ox 98 12/31/22 09:12 BMI result Body Mass Index 37.1 General: No acute distress HEENT: Moist mucous membranes, normocephalic, pupils equal round and reactive to light. Neck: No thyromegaly, supple, no JVD Lymph: No cervical, supraclavicular, or other lymphadenopathy Chest: No chest wall abnormalities or deformities well-healed scars on the right Heart: Regular rate and rhythm Lungs: Clear to auscultation bilaterally Abdomen: Soft, nontender, normal bowel sounds Extremities: No edema, cyanosis, or clubbing. Full range of motion Neuro: Grossly intact, alert and oriented x3, and nonfocal Skin: Warm and dry no rashes Affect: Normal Assessment & Plan Assessment & Plan (1) Lung cancer: Onset Date: ~2021 Comment: (stage 1A Adenocarcinoma RUL s/p lobectomy 11/2021) Code(s): C34.90 - Malignant neoplasm of unspecified part of unspecified bronchus or lung Plan: 77-year-old woman about 1 year out now from navigational bronchoscopy dye marking, Davinci right upper lobe wedge with completion right upper lobectomy and mediastinal lymphadenectomy for stage I A adenocarcinoma of the lung. She is doing quite well clinically and her 1st 2 six-month follow-up CT scans show no evidence of recurrence or new disease. I explained to her the postoperative protocol which is a CT scan every 6 months for the 1st 2 years followed by yearly for 3 years after that as long as there are no new changes. She will have a visit with each CT scan. All questions were answered. CT scan in 6 months will be arranged. Orders: Orders CT chest wo IV con 6 Months C34.90 - Malignant neoplasm of unspecified part of unspecified bronchus or lung Coding Level of Care Code Est Pt Level 4 (33838) Diagnoses Lung cancer C34.90
[2022-12-31 09:12] VITALS: BP 130/70; PULSE 78; O2SAT 98; BMI 37.1
== END 2022-12-31 09:36 | disposition home or self-care (01) ==
PROVIDERS: PCP Family Medicine; Visit Provider Surgery
DX: C34.90 Malignant neoplasm of unspecified part of unspecified bronchus or lung (principal)

== ENCOUNTER → 2022-12-31 08:46 | Outpatient (BNVA) | payer OTHER, SELFPAY | PROVIDERS: PCP Family Medicine; Visit Provider Surgery | DX: C34.11 Malignant neoplasm of upper lobe, right bronchus or lung (principal); Z90.2 Acquired absence of lung [part of] | CPT/HCPCS: 99212 ==

== ENCOUNTER 2023-06-10 11:03 | Outpatient (REF) | payer OTHER, SELFPAY ==
--- NOTE | ~2023-06-10 | MM_ITS ---
EXAMINATION: MM SCREENING DIGITAL BREAST TOMOSYNTHESIS, BILATERAL CLINICAL INFORMATION: Screening. Asymptomatic. COMPARISON: Mammography: This study is compared with prior exams dating back to 2018. TECHNIQUE: Digital breast tomosynthesis is performed in both the craniocaudal and mediolateral oblique views along with computer-aided detection (CAD). Synthesized 2D images are generated from the tomosynthesis. FINDINGS: There are scattered areas of fibroglandular density (ACR BI-RADS breast composition Category b). There are no significant masses, abnormal calcifications, or other abnormalities. There are a few, bilateral, benign calcifications. MM/MM tomosynthesis screening BI IMPRESSION: No mammographic evidence of malignancy. ASSESSMENT: BI-RADS BI-RADS 2 - Benign Findings RECOMMENDATION: Routine annual mammography screening. 1 year F/U This examination should not preclude the clinical evaluation of a suspicious palpable abnormality. This patient's information was entered into a reminder system with a target due date for their next mammogram.
== END 2023-06-10 11:04 | disposition home or self-care (01) ==
LOC: HO.MAMMO 11:03
PROVIDERS: PCP Family Medicine; Visit Provider Family Medicine
DX: Z12.31 Encounter for screening mammogram for malignant neoplasm of breast (principal)
CPT/HCPCS: 77063; 77067

== ENCOUNTER → 2023-06-10 11:30 | Outpatient (BNV) | payer OTHER, SELFPAY | PROVIDERS: PCP Family Medicine; Visit Provider Radiology Diagnostic Radiology | DX: Z12.31 Encounter for screening mammogram for malignant neoplasm of breast (principal) | CPT/HCPCS: 77063; 77067 ==

== ENCOUNTER 2023-07-22 08:46 | Outpatient (REF) | payer OTHER, SELFPAY ==
--- NOTE | ~2023-07-22 | MM_ITS ---
EXAMINATION: BONE DENSITOMETRY CLINICAL INDICATION: Postmenopausal. COMPARISON: Baseline BD dated 07/24/2010. TECHNIQUE: Using a beModel DXA System (software version: 13.1) manufactured by [employer], dual-energy x-ray absorptiometry was performed of the lumbar spine and left hip. The images are of good technical quality. Summary results are attached. FINDINGS: LEFT FEMUR, NECK: Current: BMD 0.657 g/cm2, Z-score -1.3, T-score -2.7, osteoporosis. Baseline: BMD 0.764 g/cm2. LEFT FEMUR, TOTAL: Current: BMD 0.742 g/cm2, Z-score -0.7, T-score -2.1, osteopenia, 24.7% decrease from baseline (<5% change is not significant). Baseline: BMD 0.985 g/cm2. AP SPINE L1-L4: Current: BMD 1.019 g/cm2, Z-score -0.5, T-score -1.3, osteopenia, 5.9% decrease from baseline (<5% change is not significant). Baseline: BMD 1.083 g/cm2. IDENTIFIED RISK FACTORS: Menopause, height loss, hysterectomy, glucocorticoids (chronic), left oophorectomy, rheumatoid arthritis HISTORY OF FRACTURE: None listed. MEDICATIONS: Calcium. MM/XR DEXA axial skeleton IMPRESSION: 1. DIAGNOSIS: Osteoporosis based on the lowest T-score value of -2.7 in the femoral neck applying World Health Organization criteria. 2. 10-YEAR FRACTURE RISK PREDICTION, FRAX: According to the guidelines, FRAX calculation should only be performed on patients in the osteopenia bone density category. Therefore, FRAX was not performed on this patient. 3. Treatment Recommendations: NOF guidelines recommend consideration for treatment in postmenopausal women and men age 50 and older presenting with the following: -A hip or vertebral (clinical or morphometric) fracture. -T-score less than or equal to -2.5 at the femoral neck or spine after appropriate evaluation to exclude secondary causes. -Low bone mass at the hip or spine and a 10-year fracture probability by FRAX of greater than or equal to 3% for hip fracture or greater than or equal to 20% for major osteoporotic fracture based on the [place] adapted WHO algorithm. 4. Other Recommendations: All treatment decisions require clinical judgment and consideration of individual patient factors, including patient preferences, comorbidities, previous drug use, risk factors not captured in the FRAX model (e.g. frailty, falls, vitamin D deficiency, increased bone turnover, interval significant decline in bone density) and possible under or overestimation of fracture risk by FRAX. Additional medical evaluation for secondary cause of low bone mineral density may be appropriate. FUTURE SCAN RECOMMENDATION: People with diagnosed cases of osteoporosis or at high risk for fracture should have regular bone mineral density tests. For patients eligible for Medicare, routine testing is allowed once every 2 years. The testing frequency can be increased to one year for patients who have rapidly progressing disease, those who are receiving or discontinuing medical therapy to restore bone mass, or have additional risk factors.
== END 2023-07-22 08:47 | disposition home or self-care (01) ==
LOC: HO.MAMMO 08:46
PROVIDERS: PCP Family Medicine; Visit Provider Family Medicine
DX: Z13.820 Encounter for screening for osteoporosis (principal); Z78.0 Asymptomatic menopausal state
CPT/HCPCS: 77080

== ENCOUNTER 2023-09-30 08:39 | Outpatient (AMB) | payer OTHER, SELFPAY ==
--- NOTE | 2023-09-30 08:46 | A.OFFVIS_ITS ---
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 She has been followed closely by thoracic surgery regarding a subsolid nodule in the right upper lobe area. Unfortunately the nodule has been getting worse and now appears to be developing more solid areas which is concerning for for the malignant transformation. The patient is high risk because her smoking. Patient is planning to undergo a resection of this nodule density in the coming weeks. In the meantime she is doing well from the respiratory status. She does use Flovent maintenance and also has a rescue inhaler. The patient was educated on how to use her inhalers. She did undergo pulmonary function studies that I personally reviewed. The patient does not have any evidence of obstructive airway disease. However she does a decreased total lung capacity consistent with restrictive lung disease. in addition, her diffusing capacity was only 58% predicted suggesting moderate diffusion impairment. Explained to the patient that after surgery she may require oxygen for period time. The patient is a heavy smoker. She is working on quitting altogether. She is motivated. Although still very difficult for her. She is not interested in nicotine supplementation or medications to help her quit. She has done in the past which she quit for a prolonged period time without any medications. Therefore, she is going to continue on the current respiratory therapy. Will reassess her in about 4 months since she has had enough time to recover from her surgery and to assess her new baseline. 02/25/2022 the patient is here for a pulmonary follow-up visit. Since we last spoke the patient did undergo the navigational bronchoscopy with subsequent DAvinci right upper lobe lobectomy. 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 She did not need any additional therapies after that. She does need to get a CAT scan 6 months after the fact. Make sure she has that arranged. In the meantime her breathing has been well. She does have a recent cold that she is dealing with. She has not been using the Flovent she is concerned about thrush. She does have the Spiriva. Will go ahead and switch her to Anoro in order to provide her better bronchodilation. She also has a rescue inhaler available. Patient does have some nasal congestion and cough but nonproductive in nature. She is to be getting better and therefore does not need any therapy for that. She is not having any wheezing so therefore she does not require prednisone. If her symptoms do worsen she will call the office for additional therapies. 09/29/2022 the patient is here for pulmonary follow-up. Patient had brought has been doing well. She has been using the Anoro with good effect. She unfortunately is using her Flovent as a rescue. I did reeducated about her inhalers. She does not need to use her Flovent. I will send her albuterol to the pharmacy. Her last CT scan of the chest we did personally review back in May 2022 demonstrating stable postoperative changes. No new nodules. She s hould be getting another CT scan in October 2022. The patient is doing well she is exercising regularly. Will plan to follow-up in a year's time. 09/30/2023 the patient is here for a pulmonary follow-up visit. Overall the patient is doing okay. She continues on the Anoro with good effect. She has a rescue inhaler. She has not been using her Flovent which she is okay. She is having allergy symptoms now nasal congestion and runny nose due to the spring season. Will make sure to have her medications sent to the pharmacy. In meantime she is following closely with thoracic surgery. She was seen at [facility] per report. Will request the results of her last CT scan that she had about a month ago. Apparently no interventions required. She does have subcentimeter pulmonary nodules. She did have surgery for lung cancer stage I previously. [facility] Medical History Allergic rhinitis Colon polyp COPD (chronic obstructive pulmonary disease) Depression Family history of colon cancer GERD (gastroesophageal reflux disease) HLD (hyperlipidemia) HTN (hypertension) Hx of renal calculi Lung cancer (~2021) Pre-diabetes Smoker Surgical History History of cholecystectomy (~2018) History of colonoscopy (~2021) History of hysterectomy (~1974) History of lobectomy of lung (~2021) History of right nephrectomy (~1986) Family History Father No problems noted. Mother No problems noted. Social History Patient Tobacco Use Status: Current everyday Tobacco user Tobacco use type: Cigarette Cigarette Packs Per Day: 1 Cigarettes Per Day: 10 Years Smoked: 50 Second Hand Smoke Exposure: No Review of Systems Const Denies chills, Denies daytime sleepiness, Denies fatigue, Denies fever(s), Denies frequent falls, Denies poor appetite, Denies snoring, Denies stops breathing during sleep, Denies weakness, Denies weight gain and Denies weight loss Eyes Denies loss of vision ENT Denies dizziness, Denies hearing loss, Reports nasal congestion and Reports nasal discharge Card Denies chest pain, Denies claudication, Denies leg edema, Denies lightheadedness, Denies palpitations, Denies dyspnea, Denies dyspnea on exertion and Denies orthopnea Resp Reports cough, Denies excessive phlegm production, Denies dyspnea, Denies dyspnea on exertion, Denies snoring and Denies wheezing GI Denies abdominal pain, Denies hematochezia, Denies change in bowel habits, Denies nausea and Denies vomiting Denies urinary frequency and Denies dysuria Musc Denies arthralgias, Denies muscle weakness, Denies numbness and Denies other (frequent falls) Skin/Breast Denies nail changes and Denies rash Neuro Denies Abnormal speech present, Denies dizziness, Denies frequent falls, Denies loss of vision, Denies memory loss, Denies numbness and Denies weakness Psych Denies depression and Denies memory loss Endo Denies fatigue and Denies palpitations Jayden/Lymph Reports easy bruising and Reports other (anemia) Aller/Immun Denies wheezing Physical Exam Vital Signs: Last Vital Signs Pulse 81 09/30/23 08:49 BP 132/70 09/30/23 08:49 Pulse Ox 94 09/30/23 08:49 Oxygen Delivery Method Room Air 09/30/23 08:49 BMI result Body Mass Index 39.9 Const General: comfortable and alert Orientation/consciousness: patient oriented x3 HEENT Head: Yes normocephalic and Yes atraumatic Neck Neck: Yes trachea midline, Yes supple and Yes no JVD Chest Chest palpation & inspection: normal inspection of the chest Resp Effort & Inspection: normal respiratory effort Auscultation: no rhonchi, no wheezes and diminished lung sounds Cardio Jugular venous distension: no JVD Palpation: normal PMI Rate: regular rate Rhythm: regular rhythm Heart sounds: S1 normal heart sound present, S2 normal heart sound present, no click, no gallops, no murmurs and no rubs GI Auscultation: normal bowel sounds Skin General skin exam: no rashes or lesions noted Neuro General: patient oriented x3 and no focal motor deficits Speech: No Abnormal speech present Extrem General: Yes no clubbing, cyanosis or edema Psych Appearance: grossly normal Assessment & Plan Assessment & Plan (1) COPD (chronic obstructive pulmonary disease): Code(s): J44.9 - Chronic obstructive pulmonary disease, unspecified Category: Medical Qualifiers: COPD type: chronic bronchitis Chronic bronchitis type: simple Qualified Code(s): J41.0 - Simple chronic bronchitis (2) Lung cancer: Onset Date: ~2021 Comment: (stage 1A Adenocarcinoma RUL s/p lobectomy 11/2021) Code(s): C34.90 - Malignant neoplasm of unspecified part of unspecified bronchus or lung Category: Medical Plan continue Anoro start Fluticasone nasal spray start Zyrtec short-acting beta agonist as needed CT chest as per Thoracic surgery. We will request latest CT from [facility] F/U 8-10 months Medications: New cetirizine 10 mg PO DAILY 30 tabs 11RF Changed From fluticasone propionate 50 mcg/actuation 1 spray intranasal DAILY To fluticasone propionate 50 mcg/actuation 1 spray intranasal DAILY 16 grams 11RF 30 days Refilled umeclidinium-vilanterol 62.5-25 mcg/actuation (Anoro Ellipta) 1 inh inhalation DAILY 60 ea 11RF J44.9 - Chronic obstructive pulmonary disease, unspecified albuterol sulfate 90 mcg/actuation (ProAir HFA) 2 puffs inhalation Q6H PRN 8.5 grams 11RF Shortness Of Breath Coding Level of Care Code Est Pt Level 4 (25930) Diagnoses Simple chronic bronchitis J41.0 COPD type: chronic bronchitis Chronic bronchitis type: simple Lung cancer C34.90 Time Spent (min) 16
[2023-09-30 08:49] VITALS: BP 132/70; PULSE 81; O2SAT 94; BMI 39.9
== END 2023-09-30 09:26 | disposition home or self-care (01) ==
PROVIDERS: PCP Family Medicine; Visit Provider Hospitalist
DX: J41.0 Simple chronic bronchitis (principal); C34.90 Malignant neoplasm of unspecified part of unspecified bronchus or lung
CPT/HCPCS: 99214

== ENCOUNTER → 2023-09-30 08:39 | Outpatient (BNVA) | payer OTHER, SELFPAY | PROVIDERS: PCP Family Medicine; Visit Provider Hospitalist | DX: J41.0 Simple chronic bronchitis (principal); C34.90 Malignant neoplasm of unspecified part of unspecified bronchus or lung | CPT/HCPCS: 99212 ==

== ENCOUNTER 2023-10-04 10:20 | Outpatient (REF) | payer OTHER, SELFPAY ==
[2023-10-04 12:07] LABS: Estimated Average Glucose 126 mg/dL
[2023-10-04 12:21] LABS: Alanine Aminotransferase 11 U/L (0-31); Albumin Level 4.3 g/dL (3.5-5.0); Alkaline Phosphatase 75 U/L (39-117); Anion Gap 12 (12-20); Aspartate Amino Transferase 13 U/L (5-31); Bilirubin Total 0.3 mg/dL (0.0-1.0); Blood Urea Nitrogen 18 mg/dL (9-16); Calcium 9.4 mg/dL (8.4-10.2); Carbon Dioxide 30 mmol/L (22-29); Chloride 104 mmol/L (96-108); Cholesterol 168 mg/dL (<200); Estimated Glomerular Filt Rate > 60; Glucose Random 121 mg/dL (60-115); HDL Cholesterol 71 mg/dL (>40); LDL Cholesterol Calculated 78 mg/dL (<100); Potassium 5.1 mmol/L (3.3-5.1); Sodium 141 mmol/L (135-145); Total Protein 7.2 g/dL (6.5-8.0); Triglycerides 95 mg/dL (<150); Uric Acid 5.7 mg/dL (2.4-5.7)
[2023-10-04 12:27] LABS: TSH reflex Free T4 1.43 uIU/mL (0.32-4.0); Vitamin D 25-OH Total 31.9 ng/mL (>30)
[2023-10-04 12:59] LABS: Reflex LDLD? No
== END 2023-10-04 10:21 | disposition home or self-care (01) ==
LOC: HO.HHCL 10:20
PROVIDERS: Visit Provider Family Medicine
DX: E55.9 Vitamin D deficiency, unspecified (principal); I10 Essential (primary) hypertension; M10.9 Gout, unspecified; E66.01 Morbid (severe) obesity due to excess calories; Z68.39 Body mass index [BMI] 39.0-39.9, adult; R73.01 Impaired fasting glucose
CPT/HCPCS: 36415; 80053; 80061; 82306; 83036; 84443; 84550

== ENCOUNTER 2024-06-12 18:38 | Emergency (ER) | payer OTHER, SELFPAY ==
--- NOTE | ~2024-06-12 | XR_ITS ---
CLINICAL HISTORY: sob 2 view chest x-ray Comparison: None Findings: Lungs are clear without acute infiltrates. No pneumothorax. Heart size normal. No acute bony abnormalities. Impression: No acute processes This document has been electronically signed by: Rigoberto Bay MD on 06/12/2024 20:35:30
--- NOTE | 2024-06-12 18:41 | ECG_ITS ---
Test Reason : TACHY Blood Pressure : */* mmHG Vent. Rate : 81 BPM Atrial Rate : 81 BPM P-R Int : 162 ms QRS Dur : 74 ms QT Int : 388 ms P-R-T Axes : 93 34 75 degrees QTcB Int : 450 ms Sinus rhythm with Premature atrial complexes Nonspecific ST abnormality Abnormal ECG When compared with ECG of 13-Mar-2019 17:51, Premature atrial complexes are now Present Referred By: Generic ED Physician Electronically Signed By: Darell Jerry
[2024-06-12 18:53] VITALS: BP 149/65; PULSE 83; RESP 18; TEMP 36.7; O2SAT 96; BMI 38.4
--- NOTE | 2024-06-12 19:29 | ED.ARRPALP ---
HPI - Arrhythmia/Palpitations General Chief Complaint: Arrhythmia/Palpitations Stated Complaint: Tachycardiac Time Seen by Provider: 06/12/24 23:43 Source: patient Mode of arrival: ambulatory Limitations: no limitations History of Present Illness ED Provider: Dr. Devika Castillo HPI narrative: Patient comes to the emergency room complaining of palpitations. Patient states that earlier today she had palpitations, patient states that she fell like an extra heartbeat. Patient became more anxious from the sensation she had in her symptoms got worse. However, patient was able to relaxed, take deep breaths, took p.o. Ativan and eventually his symptoms resolve. Patient states that she never had any chest pain or shortness of breath. At this time, patient states that she is completely asymptomatic. Related Data Home Medications ?Medication ?Instructions ?Recorded ?Confirmed amitriptyline 75 mg tablet 75 mg PO BEDTIME 02/13/20 12/31/22 aspirin 81 mg tablet 81 mg PO DAILY 02/13/20 12/31/22 cholecalciferol (vitamin D3) 25 25 mcg PO DAILY 02/13/20 12/31/22 mcg (1,000 unit) tablet (Vitamin D3) docusate sodium 100 mg capsule 100 mg PO BEDTIME 02/13/20 12/31/22 hydroxyzine HCl 25 mg tablet 25 mg PO TID PRN Anxiety 02/13/20 12/31/22 losartan 100 mg tablet 100 mg PO DAILY 02/13/20 12/31/22 sertraline 25 mg tablet 25 mg PO DAILY 02/13/20 12/31/22 simvastatin 20 mg tablet 20 mg PO BEDTIME 02/13/20 12/31/22 trazodone 150 mg tablet 150 mg PO BEDTIME 02/13/20 12/31/22 Previous Rx's ?Medication ?Instructions ?Recorded albuterol sulfate 90 mcg/actuation 2 puff inhalation Q6H PRN 09/30/23 aerosol inhaler (ProAir HFA) Shortness Of Breath #8.5 grams cetirizine 10 mg tablet 10 mg PO DAILY #30 tabs 09/30/23 fluticasone propionate 50 1 spray intranasal DAILY 30 days 09/30/23 mcg/actuation nasal #16 grams spray,suspension umeclidinium 62.5 mcg-vilanterol 1 inh inhalation DAILY #60 ea 09/30/23 25 mcg/actuation powdr for inhalation (Anoro Ellipta) Allergies Allergy/AdvReac Type Severity Reaction Status Date / Time No Known Allergies Allergy Verified 06/12/24 18:55 [No Known Allergies*] Review of Systems Review of Systems: Constitutional : No Weight loss, No Fever, No Chills, No Night Sweats, No Fatigue, No Malaise ENT/Mouth : No Hearing loss, No Ear Pain, No Nasal Congestion, No Sinus Pain, No Hoarseness, No sore throat, No Rhinorrhea, No Swallowing Difficulty Eyes: No Eye Pain, No Swelling, No Redness, No Foreign Body, No Discharge, No Vision Changes Cardiovascular : No Chest Pain, No SOB, No Dyspnea on Exertion, No Orthopnea, No Edema, complaining of Palpitations that self-resolved Respiratory : No Cough, No Sputum, No Wheezing, No Smoke Exposure, No Dyspnea Gastrointestinal : No Nausea, No Vomiting, No Diarrhea, No Constipation, No abdominal Pain, No Hematochezia, No Melena Genitourinary : no irregular bleeding, No Dysuria, No Urinary Frequency, No Hematuria, No Urinary Incontinence, No Urgency, No Flank Pain, No Urinary Flow Changes, No Hesitancy Musculoskeletal : No joint pain, No Myalgias, No Joint Swelling Skin : No Skin Lesions, No rash Neuro : No Weakness, No Numbness, No Paresthesias, No Loss of Consciousness, No Dizziness, No Headache Psych : No Anxiety/Panic, No Depression, No SI/HI/AH/VH, No Social Issues, Heme/Lymph: No Bruising, No Bleeding,No Lymphadenopathy Endocrine : No Polyuria, No Polydipsia, No Temperature Intolerance [facility] Past Medical History Medical History HLD (hyperlipidemia) Colon polyp Lung cancer (~2021) Allergic rhinitis Smoker Family history of colon cancer Pre-diabetes GERD (gastroesophageal reflux disease) Hx of renal calculi Depression COPD (chronic obstructive pulmonary disease) HTN (hypertension) Surgical History History of cholecystectomy (~2018) History of colonoscopy (~2021) History of hysterectomy (~1974) History of lobectomy of lung (~2021) History of right nephrectomy (~1986) Family History Family History Father No problems noted. Mother No problems noted. Social History Social History Patient Tobacco Use Status: Current everyday Tobacco user Tobacco use type: Cigarette Cigarette Packs Per Day: 1 Cigarettes Per Day: 10 Years Smoked: 50 Second Hand Smoke Exposure: No Advance Directives: No Advance Directives Information Provided: No Physical Exam Vital Signs: Vital Signs: Last Vital Signs Temp 97.1 F 06/12/24 22:34 Pulse 81 06/12/24 22:34 Resp 16 06/12/24 22:34 BP 191/79 H 06/12/24 22:34 Pulse Ox 93 06/12/24 22:34 O2 Del Method Room Air 06/12/24 22:34 BMI result Body Mass Index 38.4 Const: Other: Appearance: Alert. Oriented X3. No acute distress. Eyes: Pupils equal, round and reactive to light. ENT: Pharynx normal. Neck: Normal inspection. Neck supple. No lymph nodes noted. No crepitus CVS: Normal heart rate and rhythm. Pulses normal. Normal S1 and S2 Respiratory: No respiratory distress. Breath sounds normal. No Wheezing. No rales Abdomen: Soft and nontender. No rigidity. No distention. Skin: Skin warm and dry. Normal skin color. Normal skin turgor. Extremities: No lower extremity edema. No Lacerations. No Rash Neuro: Oriented X 3. No motor deficit. No sensory deficit. Moving all extremities. No slurred speech. CN 2 through 12 grossly intact Psych: calm, cooperative, normal affect Course Course Course Narrative: This is a Rapid Medical Examination (RME) performed by Danielito Asif PA-C in triage. Full HPI, ROS, assessment and treatment plan per primary provider in the Main ED. 78-year-old female hx of copd, lung cancer here for eval of palpitations since 1500 today. hx of intermittent palpitations times years. Denies chest pain or dizziness. Associated intermittent shortness of breath. + well appearing. Plan: labs, ekg Medical Decision Making Medical Decision Making MDM Narrative: My interpretation of EKG: Sinus rhythm, heart rate 81, PVCs, no ST segment depression or elevation, no T-wave inversion, QTC 450 My interpretation of labs: Patient has chronic leukocytosis, 14.9, no significant abnormality in patient's chemistry, normal LFTs and troponin Chest x-ray does not show any acute abnormality. I discussed with the patient that she is experiencing intermittent PVCs. They are not frequent. Discussed with the patient that if she continues having symptomatic PVCs, she may be a good candidate for a Holter monitor evaluation. Patient and family agree with plan. Vitals stable and patient asymptomatic Differential Diagnosis Differential Diagnoses: The differential diagnosis associated with the presentation includes (PVCs, atrial fibrillation, atrial flutter, anxiety) Lab Data MDM Lab Attestation statement: I reviewed the patient's lab results. 06/12/24 19:58 06/12/24 19:58 Labs: Lab Results 06/12/24 Range/Units 19:58 WBC 14.9 H (4.8-10.8) X10*3/uL RBC 4.33 (4.20-5.50) X10*6/uL Hgb 12.4 (12.0-16.0) g/dl Hct 38.0 (37.0-47.0) % MCV 87.8 (80.0-98.0) fL MCH 28.6 (27.0-33.0) pg MCHC 32.6 (31.0-35.0) g/dl RDW 14.3 (11.0-16.0) % Plt Count 306 (160-400) X10*3/uL MPV 9.6 (9.4-12.3) fL Immature Gran % (Auto) 0.4 (0.0-0.4) % Neut % (Auto) 77.2 H (45-73) % Lymph % (Auto) 17.0 L (20-40) % [place] % (Auto) 4.8 (2-11) % Eos % (Auto) 0.3 (0-4) % Baso % (Auto) 0.3 (0-2) % Lymph # (Auto) 2.5 (1.2-4.9) X10*3/uL [place] # (Auto) 0.7 (0.1-1.2) X10*3/uL Eos # (Auto) 0.0 (0.0-0.4) X10*3/uL Baso # (Auto) 0.1 (0.0-0.2) X10*3/uL Abs Immat Gran (auto) 0.06 H (0.00-0.03) X10*3/uL Absolute Neuts (auto) 11.5 H (2.0-8.3) x10*3/uL Absolute Nucleated RBC 0.000 (0.0-0.012) X10*3/uL Nucleated RBC % (auto) 0.0 (0.0-0.2) /100WBC PT 10.4 L (10.9-12.4) SEC INR 0.9 (0.9-1.1) Sodium 142 (135-145) mmol/L Potassium 4.2 (3.3-5.1) mmol/L Chloride 102 (96-108) mmol/L Carbon Dioxide 23 (22-29) mmol/L Anion Gap 21 H (12-20) BUN 18 H (9-16) mg/dL Creatinine 0.81 (0.5-1.4) mg/dL Estim Creat Clear Calc 60.5 Estimated GFR > 60 Random Glucose 126 H (60-115) mg/dL Calcium 9.2 (8.4-10.2) mg/dL Magnesium 2.2 (1.6-2.6) mg/dL Total Bilirubin 0.4 (0.0-1.0) mg/dL AST 19 (5-31) U/L ALT 14 (0-31) U/L Alkaline Phosphatase 69 (39-117) U/L Troponin I High Sens < 2.7 (<3.5-17.0) ng/L Total Protein 7.7 (6.5-8.0) g/dL Albumin 4.4 (3.5-5.0) g/dL Discharge Plan Discharge Clinical Impression: Palpitations Patient Disposition: Home, Self-Care Instructions: Heart Palpitations (ED) Additional Instructions: Please follow-up with your primary care physician tomorrow. If you have any worsening or new symptoms, please return to the emergency room or call 911 Prescriptions: No Action amitriptyline 75 mg Tablet 75 mg PO BEDTIME simvastatin 20 mg Tablet 20 mg PO BEDTIME trazodone 150 mg Tablet 150 mg PO BEDTIME docusate sodium 100 mg Capsule 100 mg PO BEDTIME sertraline 25 mg Tablet 25 mg PO DAILY hydroxyzine HCl 25 mg Tablet 25 mg PO TID PRN (Reason: Anxiety) aspirin 81 mg Tablet 81 mg PO DAILY losartan 100 mg Tablet 100 mg PO DAILY cholecalciferol (vitamin D3) [Vitamin D3] 25 mcg (1,000 unit) Tablet 25 mcg PO DAILY Anoro Ellipta 62.5-25 mcg/actuation blister with device 1 inh inhalation DAILY Qty: 60 11RF albuterol sulfate [ProAir HFA] 90 mcg/actuation HFA aerosol inhaler 2 puff INHALATION Q6H PRN (Reason: Shortness Of Breath) Qty: 8.5 11RF cetirizine 10 mg tablet 10 mg PO DAILY Qty: 30 11RF fluticasone propionate 50 mcg/actuation spray,suspension 1 spray intranasal DAILY 30 Days Qty: 16 11RF Print Language: Yakut
[2024-06-12 20:04] LABS: MANUAL DIFF FLAG NO
[2024-06-12 20:06] LABS: Basophils Absolute Auto 0.1 X10*3/uL (0.0-0.2); Basophils Percent Auto 0.3 % (0-2); Eosinophils Percent Auto 0.3 % (0-4); Hemoglobin 12.4 g/dl (12.0-16.0); Imm Gran Abs Auto 0.06 X10*3/uL (0.00-0.03); Imm Gran Pct Auto 0.4 % (0.0-0.4); Lymphocytes Absolute Auto 2.5 X10*3/uL (1.2-4.9); Mean Corpuscular HGB Conc 32.6 g/dl (31.0-35.0); Mean Corpuscular Hemoglobin 28.6 pg (27.0-33.0); Mean Corpuscular Volume 87.8 fL (80.0-98.0); Mean Platelet Volume 9.6 fL (9.4-12.3); Monocytes Absolute Auto 0.7 X10*3/uL (0.1-1.2); Monocytes Percent Auto 4.8 % (2-11); Neutrophils Absolute Auto 11.5 x10*3/uL (2.0-8.3); Neutrophils Percent Auto 77.2 % (45-73); Platelet Count 306 X10*3/uL (160-400); Red Blood Count 4.33 X10*6/uL (4.20-5.50); Red Cell Distribution Width 14.3 % (11.0-16.0); White Blood Count 14.9 X10*3/uL (4.8-10.8)
[2024-06-12 20:12] LABS: INTERNATIONAL NORM RATIO 0.9 (0.9-1.1); Prothrombin Time 10.4 SEC (10.9-12.4)
[2024-06-12 20:26] LABS: Alanine Aminotransferase 14 U/L (0-31); Albumin Level 4.4 g/dL (3.5-5.0); Alkaline Phosphatase 69 U/L (39-117); Anion Gap 21 (12-20); Aspartate Amino Transferase 19 U/L (5-31); Bilirubin Total 0.4 mg/dL (0.0-1.0); Blood Urea Nitrogen 18 mg/dL (9-16); Calcium 9.2 mg/dL (8.4-10.2); Carbon Dioxide 23 mmol/L (22-29); Chloride 102 mmol/L (96-108); Creatinine Clr Calc Pharmacy 60.5; Estimated Glomerular Filt Rate > 60; Glucose Random 126 mg/dL (60-115); Magnesium 2.2 mg/dL (1.6-2.6); Potassium 4.2 mmol/L (3.3-5.1); Sodium 142 mmol/L (135-145); Total Protein 7.7 g/dL (6.5-8.0)
[2024-06-12 20:30] LABS: Troponin-I High Sensitivity < 2.7 ng/L (<3.5-17.0)
[2024-06-12 22:34] VITALS: BP 191/79; PULSE 81; RESP 16; TEMP 36.2; O2SAT 93
[2024-06-13 00:19] VITALS: BP 191/79; PULSE 81; RESP 16; TEMP 36.2; O2SAT 93
== END 2024-06-13 00:20 | disposition home or self-care (01) ==
PROVIDERS: Physician Assistant Medical; Emergency Provider Emergency Medicine; PCP Family Medicine
DX: I49.9 Cardiac arrhythmia, unspecified (principal); R00.2 Palpitations; F17.210 Nicotine dependence, cigarettes, uncomplicated; Z79.899 Other long term (current) drug therapy
CPT/HCPCS: 36415; 71046; 80053; 83735; 84484; 85025; 85610; 93005; 99283; 99284

== ENCOUNTER → 2024-06-12 18:41 | Outpatient (BNV) | payer OTHER, SELFPAY | PROVIDERS: Emergency Provider Emergency Medicine; PCP Family Medicine; Visit Provider Internal Medicine Cardiovascular Disease | DX: I49.1 Atrial premature depolarization (principal) | CPT/HCPCS: 93010 ==

== ENCOUNTER → 2024-06-12 19:07 | Outpatient (BNV) | payer OTHER, SELFPAY | PROVIDERS: PCP Family Medicine; Visit Provider Radiology Diagnostic Radiology | DX: R06.02 Shortness of breath (principal) | CPT/HCPCS: 71046 ==

== ENCOUNTER 2024-06-21 11:49 | Outpatient (REF) | payer OTHER, SELFPAY ==
--- OUTSIDE RECORDS SUMMARY | 2024-06-21 12:16 | XMS_ITS ---
Author Name MS. Mick Will APRN Address [address] [place] [address] Phone [phone] [facility] Care Team Providers Care Floor Scraper Name Role Phone Julee Will Unavailable [phone] Fred Garcia Unavailable [phone] Unavailable Unavailable Unavailable Reason for Referral Not Available Allergies, adverse reactions, alerts No known allergies History of medication use Medication Class Instructions Start Date End Date Amitriptyline 75 mg Tab TAKE 1 TABLET BY MOUTH AT BEDTIME 2021-01-26 No Data Available Aspirin Low Dose 81 mg Tab delayed rel TAKE 1 TABLET BY MOUTH EVERY MORNING 2021-07-10 No Data Available Losartan Potassium 100 mg Tab TAKE 1 TAB LET BY MOUTH EVERY MORNING 2021-01-26 No Data Available Spiriva HandiHaler 18 MCG Cap USE 1 CAPS ULE FOR INHALATION ONCE A DAY DO NOT SWALLOW CAPSULE 2021-07-13 No Data Available traZODone 150 mg Tab TAKE 1 TABLET BY MO UTH AT BEDTIME 2020-12-24 No Data Available Flovent HFA 110 MCG/ACT Aerosol INHALE 1 PUFF TWICE DAILY DIRECTED 2021-05-13 No Data Available Docusate Sodium 100 mg Cap TAKE 1 CAPSUL E BY MOUTH TWICE DAILY 2021-11-13 No Data Available oxyCODONE 5 mg Tab TAKE 1 TABLET BY VISHAL TH EVERY 4 HOURS NEEDED FOR PAIN 2021-11-13 No Data Available Senna 8.6 mg Tab TAKE 2 TABLETS BY MO UTH EVERY DAY AT BEDTIME 2021-11-13 No Data Available Doxycycline Hyclate 100 mg Tab TAKE 1 TA BLET BY MOUTH EVERY TWELVE HOURS UNTIL FINISHED 2021-11-25 No Data Available cholecalciferol (vitamin D3) 25 mcg (1,000 unit) tablet TAKE 1 TABLET BY MOUTH EVERY MORNING 2021-06-11 No Data Available Cetirizine 10 mg Tab TAKE 1 TABLET BY MO UTH EVERY MORNING 2021-11-26 No Data Available hydrOXYzine 25 mg Tab TAKE 1 TABLET BY M OUTH THREE TIMES DAILY NEEDED PARA LOS ATAQUES DE ANSIEDAD 2021-12-21 No Data Available Albuterol Sulfate HFA 108 (9 0 Base) MCG/ACT Aerosol Solution INHALE 2 PUFFS BY MOUTH EVERY 6 HOURS NEEDED FOR SHORTNESS OF BREATH 2022-02-25 No Data Available Anoro Ellipta 62.5-25 MCG/AC T Aerosol Powder Breath Activated INHALE 1 PUFF EVERY DAY AT THE SAME TIME 2022-02-25 2022-04-07 Rosuvastatin Calcium 5 mg Tab TAKE 1 TAB LET BY MOUTH AT BEDTIME 2023-07-11 No Data Available Medbox Status USE DIRECTED 2023-01-24 No Data Eugenia ilable Anoro Ellipta 62.5-25 MCG/AC T Aerosol Powder Breath Activated INHALE 1 PUFF BY MOUTH EVERY DAY AT THE SAME TIME 2022-09-29 No Data Available Allopurinol 100 mg Tab TAKE 1 TABLET BY MOUTH EVERY MORNING 2023-07-11 No Data Available amLODIPine Besylate 5 mg Tab TAKE 1 TABL ET BY MOUTH EVERY MORNING 2022-12-06 No Data Available Cromolyn Sodium 4 % Solution PLACE 1 [place] P INTO THE AFFECTED EYE(S) 4 TIMES A DAY IN THE MORNING, AT NOON, IN THE EVENING, AND AT BEDTIME (ITCHY EYES AND RED EYES) FOR UP TO 14 DAYS 2023-09-22 No Data Available Alendronate Sodium 70 mg Tab TAKE 1 TABL ET BY MOUTH IN THE MORNING EVERY 7 DAYS WITH A FULL GLASS OF WATER, ON AN EMPTY STOMACH, Do not lie down for 30 minutes after taking 2023-09-22 No Data Available Fluticasone Propionate 50 MCG/ACT Suspension INSTILL 1 SPRAY IN EACH NOSTRIL ONCE DAILY 2023-09-30 No Data Available Problem List Problem Status Onset Date Resolved Date Insomnia Active 2022-04-13 N/A Hyperlipidemia Active 2022-04-13 N/A Vitamin D deficiency Active 2022-04-13 N/A Constipation Active 2022-04-13 N/A Gout Active 2022-05-14 N/A lung CA, History of lung surgery Active N/A Anxiety Active 2022-04-13 N/A Other problems related to me dical facilities and other health care Active 2023-12-30 N/A Depression, major, in partial remission Active 2 N/A Morbid (severe) obesity due to excess calories Active 2023-12-30 N/A H/O: lobar pneumonia Active 2023-12-30 N/A COPD with AsthmaHistory of respiratory failure Active 2022-04-13 N/A Secondary pulmonary arterial hypertension Active 2022-05-14 N/A Exudative age-related macula r degeneration, left eye, stage unspecified Active 2023-12-30 N/A Encounters Encounters Type Facility Date of Service Diagnosis/Co mplaint New patient,40-59min; chronic exacerbation, 2 stable chronic or 1 acute illness add add modifier 95 for video (do not use for phone, instead use [id number]) [facility], ([place] Unspecified asthma, uncomplicatedInsomnia, unspecifiedHyperlipidemia, unspecifiedVitamin D deficiency, unspecifiedAnxiety disorder, unspecifiedDepression, unspecifiedConstipation, unspecifiedOther specified postprocedural states New patient,40-59min; chronic exacerbation, 2 stable chronic or 1 acute illness add add modifier 95 for video (do not use for phone, instead use [id number]) [facility] [place] New patient,40-59min; chronic exacerbation, 2 stable chronic or 1 acute illness add add modifier 95 for video (do not use for phone, instead use 40550-49) [facility] [place] New patient,40-59min; chronic exacerbation, 2 stable chronic or 1 acute illness add add modifier 95 for video (do not use for phone, instead use 50493-22) [facility] [place] New patient,40-59min; chronic exacerbation, 2 stable chronic or 1 acute illness add add modifier 95 for video (do not use for phone, instead use 83139-34) [facility] [place] New patient,40-59min; chronic exacerbation, 2 stable chronic or 1 acute illness add add modifier 95 for video (do not use for phone, instead use 58792-91) [facility] [place] New patient,40-59min; chronic exacerbation, 2 stable chronic or 1 acute illness add add modifier 95 for video (do not use for phone, instead use 91235-64) [facility] [place] New patient,40-59min; chronic exacerbation, 2 stable chronic or 1 acute illness add add modifier 95 for video (do not use for phone, instead use [id number]) [facility], ([place]) 04[place]07/[place] New patient,40-59min; chronic exacerbation, 2 stable chronic or 1 acute illness add add modifier 95 for video (do not use for phone, instead use 59787-53) [facility] ([place]) 04[place] Estab. patient 30-39min; chronic exacerbation, 2 stable chronic or 1 acute illness add add modifier 95 for video, (do not use for phone, instead use 28930-80) [facility] ([place]) 05/14/2022 Other specified postprocedur al statesUnspecified asthma, uncomplicatedInsomnia, unspecifiedHyperlipidemia, unspecifiedVitamin D deficiency, unspecifiedAnxiety disorder, unspecifiedMajor depressive disorder, single episode, in partial remissionConstipation, unspecifiedEssential (primary) hypertensionGout, unspecified Estab. patient 30-39min; chronic exacerbation, 2 stable chronic or 1 acute illness add add modifier 95 for video, (do not use for phone, instead use 18114-57) [facility] [place] Estab. patient 30-39min; chronic exacerbation, 2 stable chronic or 1 acute illness add add modifier 95 for video, (do not use for phone, instead use 37994-72) [facility] ([place]) 05[place] Estab. patient 30-39min; chronic exacerbation, 2 stable chronic or 1 acute illness add add modifier 95 for video, (do not use for phone, instead use 11295-35) [facility] ([place] 05[place] Estab. patient 30-39min; chronic exacerbation, 2 stable chronic or 1 acute illness add add modifier 95 for video, (do not use for phone, instead use 46718-95) [facility] ([place] 05[place] Estab. patient 30-39min; chronic exacerbation, 2 stable chronic or 1 acute illness add add modifier 95 for video, (do not use for phone, instead use 53476-95) [facility] [place] Estab. patient 30-39min; chronic exacerbation, 2 stable chronic or 1 acute illness add add modifier 95 for video, (do not use for phone, instead use 77885-49) [facility] ([place] 05[place] [facility] [place]22 Other specified postprocedur al statesUnspecified asthma, uncomplicatedInsomnia, unspecifiedHyperlipidemia, unspecifiedVitamin D deficiency, unspecifiedAnxiety disorder, unspecifiedMajor depressive disorder, single episode, in partial remissionConstipation, unspecifiedEssential (primary) hypertensionGout, unspecified No Data Available [facility] [place] 06[place] [facility] [place] Unlisted special service; to be used for medical record reviews and reporting CPTII codes (1111F, etc) [facility] ([place] 03/[place]/2023 Other specified health statu s Unlisted special service; to be used for medical record reviews and reporting CPTII codes (1111F, etc) [facility] [place] Unlisted special service; to be used for medical record reviews and reporting CPTII codes (1111F, etc) [facility] [place] 03[place] Estab. patient 30-39min; chronic exacerbation, 2 stable chronic or 1 acute illness add add modifier 95 for video, (do not use for phone, instead use 51270-58) [facility] ([place] 12[place]2023 Malignant neoplasm of upper lobe, right bronchus or lungOther specified chronic obstructive pulmonary diseasePersonal history of other diseases of the respiratory systemInsomnia, unspecifiedHyperlipidemia, unspecifiedVitamin D deficiency, unspecifiedAnxiety disorder, unspecifiedMajor depressive disorder, single episode, in partial remissionConstipation, unspecifiedSecondary pulmonary arterial hypertensionGout, unspecifiedMorbid (severe) obesity due to excess caloriesPersonal history of pneumonia (recurrent)Exudative age-related macular degeneration, left eye, stage unspecifiedOther problems related to medical facilities and other health careOther specified postprocedural states Estab. patient 30-39min; chronic exacerbation, 2 stable chronic or 1 acute illness add add modifier 95 for video, (do not use for phone, instead use 81491-67) [facility] Estab. patient 30-39min; chronic exacerbation, 2 stable chronic or 1 acute illness add add modifier 95 for video, (do not use for phone, instead use 41512-09) [facility] Estab. patient 30-39min; chronic exacerbation, 2 stable chronic or 1 acute illness add add modifier 95 for video, (do not use for phone, instead use 55768-06) [facility] Estab. patient 30-39min; chronic exacerbation, 2 stable chronic or 1 acute illness add add modifier 95 for video, (do not use for phone, instead use 12266-86) [facility] Estab. patient 30-39min; chronic exacerbation, 2 stable chronic or 1 acute illness add add modifier 95 for video, (do not use for phone, instead use 00208-68) [facility] Estab. patient 30-39min; chronic exacerbation, 2 stable chronic or 1 acute illness add add modifier 95 for video, (do not use for phone, instead use 19752-81) [facility] Estab. patient 30-39min; chronic exacerbation, 2 stable chronic or 1 acute illness add add modifier 95 for video, (do not use for phone, instead use 82746-52) [facility] Estab. patient 30-39min; chronic exacerbation, 2 stable chronic or 1 acute illness add add modifier 95 for video, (do not use for phone, instead use 11375-99) [facility] 12[place]20[place] Estab. patient 30-39min; chronic exacerbation, 2 stable chronic or 1 acute illness add add modifier 95 for video, (do not use for phone, instead use 24450-61) [facility] ([place]) 12/30/2023 Vital Signs Date of Collection Vitals 2022-04-07 12:52:40 Height - 162.56 cmWe ight - 81.19 kgBody Mass Index (BMI) - 30.73 kg/m2BP Diastolic - 93.0 mm[Hg]BP Systolic - 147.0 mm[Hg] 2022-05-14 07:16:43 Height - 162.56 cmWe ight - 81.19 kgBody Mass Index (BMI) - 30.73 kg/m2 2023-12-30 07:42:07 Height - 162.56 cmWe ight - 96.62 kgBody Mass Index (BMI) - 36.56 kg/m2BP Diastolic - 70.0 mm[Hg]BP Systolic - 126.0 mm[Hg] Social History Social History Social History Observation Description Effec tive Time Current Smoking Status Former smoker 2024-06-09 3 Sex Female History of Procedures Procedures Service Procedure code Service date Servicing provider Phone# New patient,40-59min; chronic exacerbation, 2 stable chronic or 1 acute illness add add modifier 95 for video (do not use for phone, instead use 02885-09) 56248 2022-04-07 No Data Available No Data Availa ble Medication List Documented (1159F) 1159F 2022-04-07 No Data Available No Data Eugenia ilable Medication Review by prescribing provider or pharmacist documented (1160F) 1160F 2022-04-07 No Data Available No Data Eugenia ilable Functional Status Assessed (1170F) 1170F 2022-04-07 No Data Available No Data Avail able Advance Care Directive Advance care planning discussion documented in the medical record (1158F) 1158F 2022-04-07 No Data Available No Data Availa ble BMI obtained (3008F) 3008F 2022-04-07 No Data Availab le No Data Available Pain Assessment - NO pain present (1126F) 1126F 2022-04-07 No Data Available No Data A vailable SBP >= 140 3077F 2022-04-07 No Data Available No Data Available DBP >=90 3080F 2022-04-07 No Data Available No Data Available Estab. patient 30-39min; chronic exacerbation, 2 stable chronic or 1 acute illness add add modifier 95 for video, (do not use for phone, instead use 05193-26) 12277 2022-05-14 No Data Available No Data Availa ble Medication List Documented (1159F) 1159F 2022-05-14 No Data Available No Data Eugenia ilable Medication Review by prescribing provider or pharmacist documented (1160F) 1160F 2022-05-14 No Data Available No Data Eugenia ilable Functional Status Assessed (1170F) 1170F 2022-05-14 No Data Available No Data Avail able Advance Care Directive Advance care planning discussion documented in the medical record (1158F) 1158F 2022-05-14 No Data Available No Data Availa ble BMI obtained (3008F) 3008F 2022-05-14 No Data Availab le No Data Available Pain Assessment - Pain Documented on a Pain Scale (1125F) 1125F 2022-05-14 No Data Available No Data Eugenia ilable No Data Available 85773 2022-06-23 No Data Available No Data Available Medication List Documented (1159F) 1159F 2022-06-23 No Data Available No Data Eugenia ilable Pain Assessment - Pain Documented on a Pain Scale (1125F) 1125F 2022-06-23 No Data Available No Data Eugenia ilable Unlisted special service; to be used for medical record reviews and reporting CPTII codes (1111F, etc) 17885 2023-03-11 No Data Available No Data Availa ble SBP < 130 (3074F) 3074F 2023-03-11 No Data Available No Data Available DBP <80 (3078F) 3078F 2023-03-11 No Data Available No Data Available Estab. patient 30-39min; chronic exacerbation, 2 stable chronic or 1 acute illness add add modifier 95 for video, (do not use for phone, instead use 15304-39) 11904 2023-12-30 No Data Available No Data Availa ble Medication List Documented (1159F) 1159F 2023-12-30 No Data Available No Data Eugenia ilable Medication Review by prescribing provider or pharmacist documented (1160F) 1160F 2023-12-30 No Data Available No Data Eugenia ilable BMI obtained (3008F) 3008F 2023-12-30 No Data Availab le No Data Available Advance Care Directive Advance care planning discussion documented in the medical record (1158F) 1158F 2023-12-30 No Data Available No Data Availa ble Advance care planning discussed and documented ? advance care plan or surrogate decision-maker was documented in the medical record. (1123F) 1123F 2023-12-30 No Data Available No Data Availa ble SBP < 130 (3074F) 3074F 2023-12-30 No Data Available No Data Available DBP <80 (3078F) 3078F 2023-12-30 No Data Available No Data Available Pain Assessment - Pain Documented on a Pain Scale (1125F) 1125F 2023-12-30 No Data Available No Data Eugenia ilable Functional Status Assessed (1170F) 1170F 2023-12-30 No Data Available No Data Avail able Functional Status Functional Category Effective Dates Cognition Status: Oriented to Person, Pl freddie and Time 2022-04-07 ADL Eating: Independent; Amb ulation: Independent; Dressing: Some Help Needed; Bathing: Independent; Toileting: Independent 2022-04-07 Cognition Status: Oriented to Person, Pl freddie and Time 2022-05-14 ADL: Bathing Independent , D ressing Independent , Eating Independent , Ambulation Independent , Transferring Independent and Toileting Independent 2022-05-14 Falls in last 6 Months: No 2022-05-14 IADL: Medication Needs Freddie tance , Meal Prep Needs Assistance , Shopping Needs Assistance , Driving or Public Transport Needs Assistance , Housework Needs Assistance and Finances Needs Assistance 2022-05-14 Social Supports - # of Inter actions with Friends/Family in a typical week: 2022-05-14 ambulates with cane 2022-05-14 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 2022-05-14 Mental Status Status Date Cognition Status: Oriented to Person, Pl freddie and Time 2022-04-07 AOx3 2023-12-30 Assessments Date of Service Assessments 2022-04-07 12:52:40 History of lung surg eryAsthmaInsomniaHyperlipidemiaVitamin D deficiencyAnxietyDepression, major, in partial remission 2022-05-14 07:16:43 History of lung surg eryAsthmaInsomniaHyperlipidemiaVitamin D deficiencyAnxietyDepression, major, in partial remissionConstipationHypertensionGout 2022-06-23 12:51:23 History of lung surg eryAsthmaInsomniaHyperlipidemiaVitamin D deficiencyAnxietyDepression, major, in partial remissionConstipationHypertensionGout 2023-12-30 07:42:07 Other problems relat ed to medical facilities and other health carelung CA, History of lung surgeryCOPD with AsthmaHistory of respiratory failureInsomniaHyperlipidemiaVitamin D deficiencyAnxietyDepression, major, in partial remissionConstipationSecondary pulmonary arterial hypertensionGoutMorbid (severe) obesity due to excess caloriesH/O: lobar pneumoniaExudative age-related macular degeneration, left eye, stage unspecified Plan of Care Date of Service Plans 2022-04-07 12:52:40 Pain Assessment - NO pain documented (1126F)Medication Review by prescribing provider or pharmacist documented (1160F)Medication List Documented (1159F)Functional Status Assessed (1170F)Advance Care Directive Advance care planning discussion documented in the medical record (1158F)BMI obtained (3008F)SBP >= 140DBP >=90Televideo new patient,40-59min; chronic exacerbation, 2 stable chronic or 1 acute illness add modifier 95Continue to see PCP. Follow-up with [facility] as needed for any acute or disease education needs that may arise.lobectomy for lung CA in chemotherapy or radiation per patient has follow up appointment in albuterol as needed, flovent puffs and spirivacontrolled without any acute exacerbationsrecommend close follow up with PCP, continue to use inhaler as needed and avoiding asthma exacerbation known triggerson trazadonerecommend sleep hygieneon a statin recommend weight loss and low fat dieton supplementscontinuetakes hydroxyzinereports anxiety is well controlled, no recent attacksplease call if worsening symptomson amitriptyline; PHQ4=2reviewed coping mechanisms and distracting toolsPt is actively working on getting better and is not at risk for self-harm or harm to others at this time. Recommended to call back if worsening symptoms or if any concerns arise 2022-05-14 07:16:43 Medication Review by prescribing provider or pharmacist documented (1160F)Medication List Documented (1159F)Functional Status Assessed (1170F)Advance Care Directive Advance care planning discussion documented in the medical record (1158F)BMI obtained (3008F)Televideo 30-39min; chronic exacerbation, 2 stable chronic or 1 acute illness add modifier 95Pain Assessment - Pain Documented (1125F)Continue to see PCP. Follow-up with [facility] as needed for any acute or disease education needs that may arise.lobectomy for lung CA in chemotherapy or radiation per patient has follow up appointment in albuterol as needed, flovent puffs and spirivacontrolled without any acute exacerbationsrecommend close follow up with PCP, continue to use inhaler as needed and avoiding asthma exacerbation known triggerson trazadonerecommend sleep hygieneon a statin recommend weight loss and low fat dieton supplementscontinuetakes hydroxyzinereports anxiety is well controlled, no recent attacksplease call if worsening symptomson amitriptyline; PHQ4=2reviewed coping mechanisms and distracting toolsPt is actively working on getting better and is not at risk for self-harm or harm to others at this time. Recommended to call back if worsening symptoms or if any concerns ariseon daily stool softeners without severe abdominal pain, no hx of bowel obstruction encourage drinking more fluid, fiber intake and regular physical activitycontinue to take stool softenerson losartandoes not measure BP dailyeducated on measuring BP daily low na dietexercise as toleratedhx of gout had red meat yesterday and woke up with left great toe pain todaytakes ibuprofen for pain and applies ice 2022-06-23 12:51:23 Phone (patient, pare nt, or guardian); 5-10 minutes of medical discussion (no modifier 95)Continue to see PCP. Follow-up with [facility] as needed for any acute or disease education needs that may arise 29/11.lobectomy for lung CA in chemotherapy or radiation per patient has follow up appointment in albuterol as needed, flovent puffs and spirivacontrolled without any acute exacerbationsrecommend close follow up with PCP, continue to use inhaler as needed and avoiding asthma exacerbation known triggerson trazadonerecommend sleep hygieneon a statin recommend weight loss and low fat dieton supplementscontinuetakes hydroxyzinereports anxiety is well controlled, no recent attacksplease call if worsening symptomson amitriptyline; PHQ4=2reviewed coping mechanisms and distracting toolsPt is actively working on getting better and is not at risk for self-harm or harm to others at this time. Recommended to call back if worsening symptoms or if any concerns ariseon daily stool softeners without severe abdominal pain, no hx of bowel obstruction encourage drinking more fluid, fiber intake and regular physical activitycontinue to take stool softenerson losartandoes not measure BP dailyeducated on measuring BP daily low na dietexercise as toleratedhx of gout had red meat yesterday and woke up with left great toe pain todaytakes ibuprofen for pain and applies ice 06/23/2022 great toe pain has returned was treated before and relieved with medrol, will order uric acid, advised follow up with pcp and a maintenance medication to prevent uric acid build up 2023-03-11 07:17:54 Unlisted special ser vice; to be used for medical record reviews and reporting CPTII codes (1111F, etc)SBP < 130 (3074F)DBP <80 (3078F) 2023-12-30 07:42:07 Televideo 30-39min; chronic exacerbation, 2 stable chronic or 1 acute illness add modifier 95Functional Status Assessed (1170F)Pain Assessment - Pain Documented (1125F)BMI obtained (3008F)Advance Care Directive Advance care planning discussion documented in the medical record (1158F)Advance care planning discussed and documented ? advance care plan or surrogate decision-maker was documented in the medical record. (1123F)SBP < 130 (3074F)DBP <80 (3078F)Continue to see PCP. Follow-up with [facility] as needed for any acute or disease education needs that may arise.COPD CONTINGENCY PLANCOPD Member to call for the following symptoms: Albuterol not working/ Chest pain??/ Exertional dyspnea/ Fatigue/ Increased cough??/ WheezingPlanned intervention: Practice pursed lip breathing/ Practice controlled coughing/ Confirm appropriate inhaler usagelobectomy for lung CA in chemotherapy or radiation per patient has follow up appointment in on albuterol as needed, flovent puffs and spiriva, former smokercontrolled without any acute exacerbationsrecommend close follow up with PCP, continue to use inhaler as needed and avoiding asthma exacerbation known triggerson trazadonerecommend sleep hygieneon a statin recommend weight loss and low fat dieton supplementscontinueStablehydroxyzinereports anxiety is well controlled, no recent attacksplease call if worsening symptomsStableamitriptylinereviewed coping mechanisms and distracting toolsPt is actively working on getting better and is not at risk for self-harm or harm to others at this time. Recommended to call back if worsening symptoms or if any concerns arise.on daily stool softeners without severe abdominal pain, no hx of bowel obstruction encourage drinking more fluid, fiber intake and regular physical activitycontinue to take stool softenersStablelosartandoes not measure BP dailyeducated on measuring BP daily low na dietexercise as toleratedhx of gout had red meat yesterday and woke up with left great toe pain todaytakes ibuprofen for pain and applies ice 06/23/2022 great toe pain has returned was treated before and relieved with medrol, will order uric acid, advised follow up with pcp and a maintenance medication to prevent uric acid build up, reeducated on diet adheranceStableBMI: 36.56Dietary interventions and continue with PCP.StableMonitor for s/sx of infection (eg. fever), SOB, and continue with PCP.StableMonitor for acute changes in vision and continue f/u with PCP and ophthalmology. Goals Date Goal 2022-04-07 Remember to take med ications as prescribed 2022-04-07 Call me if you have any questions or concerns 2022-05-14 monitor BP daily, josh enriuqez BP log to discuss next visit 2022-05-14 continue medications as prescribed 2022-05-14 take OTC NSAID x 1-2 days as indicated for pain, monitor BP, will sent medrol dose pack for Gout episode 2022-05-14 advised to discuss m anagement with PCP and uric acid level 2022-05-14 aware of diet to breanna id gout flare 2022-06-23 continue medications as prescribed 2022-06-23 call pcp for appt roldan d gout management 2022-06-23 script for medrol se nt to pharmacy 2023-12-30 Remember to adhere t o dietary interventions and exercise as tolerable. 2023-12-30 Contact us if develo ping SOB, falls, worsening anxiety or depression, pain, hypertensive episode, or health-related concern. 2023-12-30 Continue taking medi cations as prescribed and f/u care and monitoring with PCP every 3-6 months. Health Concerns Date Concern 2023-12-30 Visit completed usin g audio/video.Patient/Guardian agreed to visit via telehealth. Today, patient has chief complaint of: follow up care and comprehensive review.Reviewed Allergies, Medications, Active Medical conditions, past medical/surgical history, Social history. 2023-12-30 ACP: yes. HCP: brielle marina (Daughter). Full code. 2023-12-30 Most recent hospital stay(s) or ER visit(s) and precipitating factors: denies in the last month. 2023-12-30 Informed verbal cons ent was obtained from this patient to communicate and provide care using virtual and other telecommunications tools. This patient has been explained the risks, if any, related to the encounter. I explained that care provided through video or audio communication cannot replace the need for physical examination or an in-person visit for some disorders or urgent problems.
--- OUTSIDE RECORDS SUMMARY | 2024-06-21 12:16 | XMS_ITS | Encounter Summary ---
Author Organization [employer] Address [address] [place] [address] 7 [place] [address] Care Team Providers Care Nurse'S Aides Teacher Name Role Phone Renea King MD Primary Care Provider [phone] Shen Blakely PharmD Unavailable [phone] Encounter Details Date Type Department Care Team (Late st Contact Info) Description 06/10/2022 Orders Only [facility] [address] [facility] [place] [id number] Mary Lou Gautam LPN Social History Tobacco Use Types Packs/Day Years Used Date Smoking Tobacco: Never Assessed Comments Unknown Sex and Gender Information Value Date Recorded Sex Assigned at Female 03/08/2022 10:21 AM EDT Legal Sex Female 10:21 AM EDT Gender Identity Female 03/08/2022 10:21 AM EDT Sexual Orientation Choose not to disclose 2021 10:21 AM EDT documented as of this encounter Plan of Treatment Upcoming Encounters Date Type Department Care Team (Late st Contact Info) Description 09/26/2024 10:00 AM EDT Office Visit [facility] OPTOMET[facility] [address] [place] [address] Milad, Angela, OD [address] [place] [address] 10/05/2024 10:00 AM EDT Medication Management [facility] MEDIC[facility] [address] [place] [address] Shen Blakely, PharmD [address] [place] [address] documented as of this encounter Visit Diagnoses Not on filedocumented in this encounter Care Teams Nurse'S Aides Teacher Relationship Specialty Start Date End Date Renea King MD [address] [place], [place] [phone] PCP - General Family Medicine 05/09/18 Shen Blakely, ChristopherD [address] [place] [address] Pharmacist Internal Medicine 03/11/23 documented as of this encounter
--- OUTSIDE RECORDS SUMMARY | 2024-06-21 12:16 | XMS_ITS | Encounter Summary ---
Author Organization [employer] [facility] Address [address] [place] [address] 7 [place] [address] Care Team Providers Care Harp Repairer Name Role Phone Renea King MD Primary Care Provider [phone] Shen Blakely PharmD Unavailable [phone] Encounter Details Date Type Department Care Team (Late st Contact Info) Description 06/14/2022 Abstract [facility] [address] [place], [place] [phone] Renea King MD [address] [place], [place] [phone] Social History Tobacco Use Types Packs/Day Years [...] Description 09/26/2024 10:00 AM EDT Office Visit [facility] OPT[facility] [address] [place], [place] [phone] Angela Stinson, JOSEFINA [address] [place], [place] [phone] 10/05/2024 10:00 AM EDT Medication Management [facility] [address] [place], [place] [phone] Shen Blakely, PharmD [address] [place] [phone] documented as of this encounter Visit Diagnoses Not on filedocumented in this encounter Care Teams Harp Repairer Relationship Specialty Start Date End Date Renea King MD [address] [place] [id number] PCP - General Family Medicine 05/09/18 Shen Balkely, PharmD [address] [place] [id number] Pharmacist Internal Medicine 03/11/23 documented as of this encounter
--- OUTSIDE RECORDS SUMMARY | 2024-06-21 12:16 | XMS_ITS | Encounter Summary ---
Author Organization [email or web address] Address [address] [place] [address] Care Team Providers Care Gis Programmer Name Role Phone Renea King MD Primary Care Provider Shen Blakely PharmD Unavailable [phone] Encounter Details Date Type Department Care Team (Late st Contact Info) Description 06/12/2024 Orders Only [facility] External Provider, [facility] Social History Tobacco Use Types Packs/Day Years Used Date Smoking Tobacco: Former Cigarettes Passive Smoke Exposure: Past Smokeless Tobacco: Never Alcohol Use Standard Drinks/Week Comments Not Currently 0 (1 standard drink = 0.6 oz pur e alcohol) Depression Answer Date Recorded Patient Health Questionnaire-9 Score 17 04/30/2024 Patient Health Questionnaire-9 Score 17 04/30/2024 Last PHQ-9: Questionnaire Data Not on file 1 07/01/2023 Housing Stability Answer Date Recorded What is your housing situation today? I have mike may 12/15/[address] you li ve. Do you have problems with any of the following? None of the above 12/15/2023 Food Insecurity Answer Date Recorded Within the past 12 months, y ou worried that your food would run out before you got money to buy more: Sometimes True 2023 Within the past 12 months,th e food you bought just didn't last and you didn't have enough money to get more: Sometimes True 12/15/2023 Transportation Answer Date Recorded In the past 12 months, has l ack of transportation kept you from medical appts, meetings, work or from getting things needed for daily living? No 12/15/2023 Utilities Answer Date Recorded In the past 12 months, has t he electric, gas, oil or water company threatened to shut off services in your home? No 12/15/2023 Depression Answer Date Recorded Patient Health Questionnaire-2 Score 6 04/30/2024 Internet Access Answer Date Recorded Internet Access Q1 Yes 01/09/2024 Internet Access Q2 Not on file 01/09/2024 Comments Unknown Sex and Gender Information Value [...] Description 09/26/2024 10:00 AM EDT Office Visit [facility] OPTOMETRY [address] [place] [address] Milad, Angela, OD [address] [place] [address] 10/05/2024 10:00 AM EDT Medication Management [facility] MED[facility] [address] [place] [address] Shen Blakely PharmYaneth [address] [place] [address] documented as of this encounter Goals Goal Patient Goal Type Associated Problems Recent Progress Patient-Stated? Author Blood Pressure < 150/90 Blood Pressure 132/68( 024 10:16 AM EST) No Shen Blakely, PharmD documented as of this encounter Procedures Procedure Name Priority Date/Time Associated Diagnosis Comments XR CHEST 2 VIEWS Routine 06/12/2024 8:35 PM EST documented in this encounter Results * XR Chest 2 Views (06/12/2024 8:35 PM EST) Anatomical Region Laterality Modality Chest Radiographic Tawnya ging 06/12/2024 8:35 PM EST Narrative 06/12/2024 8:37 PM EST ? [facility] [place] [facility] ?[address] ?[place] [address] ?XRay Report ? Signed ? Patient: Snaa,Kim ?MR#: [id number] ? : 1945 ?Acct:[id number] ? Age/Sex: 78 / F ?ADM Date: 06/12/24 ? Loc: HO.ED ? Attending Dr: ? Ordering Physician: Leigh Asif ?? Date of Service: 06/12/24 ?? Procedure(s): XR chest 2V ?? Accession Number(s): [id number] ? cc: Leigh Asif; Renea King MD ? CLINICAL HISTORY: sob ? 2 view chest x-ray ? Comparison: None ? Findings: ? Lungs are clear without acute infiltrates. ?? No pneumothorax. Heart size normal. ?? No acute bony abnormalities. ? Impression: ? No acute processes ? This document has been electronically signed by: Rigoberto Bay MD on ?? 06/12/2024 20:35:30 ? Dictated By: ?Rigoberto Bay MD ? Signed By: ?<Electronically signed by Rigoberto Bay MD in OV> ? 06/12/242035 ? DD/ 34 ? TD/TT: 06/12/242034 ? Assembly Cleaner: ? Procedure Note Brooks, Claudia - 06/12/2024 [place] [id number] XRay Report Signed Patient: Paris Hood#: [id number] : 5Acct:[id number] Age/Sex: 78 / FADM Date: 06/12/24 Loc: HO.ED Attending Dr: Ordering Physician: Leigh Asif Date of Service: 06/12/24 Procedure(s): XR chest 2V Accession Number(s): [id number] cc: Leigh Asif; Renea King MD CLINICAL HISTORY: sob 2 view chest x-ray Comparison: None Findings: Lungs are clear without acute infiltrates. No pneumothorax. Heart size normal. No acute bony abnormalities. Impression: No acute processes This document has been electronically signed by: Rigoberto Bay MD on 06/12/2024 20:35:30 Dictated By: Rigoberto Bay MD Signed By: <Electronically signed by Rigoberto Bay MD in OV> 06/12/242035 DD/ 34 TD/TT: 06/12/242034 Assembly Cleaner: [facility] External Provider IMG XR PROCEDURES Edited Result - Final documented in this encounter Visit Diagnoses Not on filedocumented in this encounter Additional Health Concerns Assessment Noted Time PHQ-9 Depression Total Score: 17 04/30/ 024 9:41 AM EST documented as of this encounter Care Teams Gis Programmer Relationship Specialty Start Date End Date Renea King MD [address] [place] [address] PCP - General Family Medicine 05/09/18 Shen Blakely, ChristopherD [address] [place] [address] Pharmacist Internal Medicine 03/11/23 documented as of this encounter
--- OUTSIDE RECORDS SUMMARY | 2024-06-21 12:16 | XMS_ITS | Clinical Summary ---
Author Organization [facility] Address [address] [place] [address] Care Team Providers Care Facsimile Machine Operator Name Role Phone Renea King MD Primary Care Provider [phone] Surgical History Surgery Date Site/Laterality Comments CHOLECYSTECTOMY PROCEDURE: HISTORICAL CHOLECYSTECTOMY HYSTERECTOMY N/A PROCEDURE: HISTORICAL HYSTERECTOMY NEPHRECTOMY Right PROCEDURE: HISTORICAL NEPHRECTOMY OTHER SURGICAL HISTORY 11/11/2021 Right PROCEDURE: ID BRONCHOSCOPY W/CPTR-ASST IMAGE-GUIDED NAVIGATION OTHER SURGICAL HISTORY 11/11/2021 Right PROCEDURE: ID THORACOSCOPY W/DX WEDGE RESEXN ANATO LUNG RESEXN; COMMENT: right upper Medical History Medical History Date Comments Allergic rhinitis due to pollen DX:Allergic rhinitis due to pollen Arrhythmia DX:Arrhythmia COPD (chronic obstructive pu lmonary disease) ([facility]) DX:COPD (chronic obstructive pulmonary disease) ([facility]) Depression DX:Depression Elevated cholesterol DX:Elevated cholesterol GERD (gastroesophageal reflux disease) DX:GERD (gastroesophageal reflux disease) HTN (hypertension) DX:HTN (hyper tension) Hx of renal calculi DX:Hx of chai al calculi Pre-diabetes DX:Pre-diabetes Smoking addiction DX:Smoking add iction Tubular adenoma of colon DX:Tubu lar adenoma of colon Lung cancer ([facility]) 12/03/2021 DX:Lung ca ncer ([facility]) Social History Tobacco Use Types Packs/Day Years Used Date Smoking Tobacco: Former Cigarettes 1 59.5 0 [birth year]/09/1962 - 11/06/2021 Smokeless Tobacco: Never Comments Unknown Sex and Gender Information Value Date Recorded Sex Assigned at Not on file Legal Sex Female 2:00 AM EST Gender Identity Not on file Sexual Orientation Not on file Obstetrics History Last Filed Vital Signs Vital Sign Reading Time Taken Comments Blood Pressure 157/84 02/02/2024 2:03 PM EDT Sitting L Arm Pulse 83 02/02/2024 2:03 PM EDT Temperature - - Respiratory Rate - - Oxygen Saturation - - Inhaled Oxygen Concentration - - Weight 94.3 kg (207 lb 14.4 oz) 02/02/2024 2:03 PM EDT Height 157.5 cm (5' 2 ) 02/02/2024 2:03 PM EDT Body Mass Index 38.03 02/02/2024 2:03 PM EDT Plan of Treatment Health Maintenance Due Date Last Done Comments COVID-19 Vaccine (#1) 1950 Pneumococcal Vaccine: 50+ Ye ars (1 of 2 - PCV) 1951 DTaP,Tdap,and Td Vaccines (1 - Tdap) 08/21/1963 Zoster Vaccines (1 of 2) 08/21/1963 RSV Immunization Patients 60 + Years Old (1 - 1-dose 75+ series) 08/21/2019 Cholesterol Screening (Lipid Panel) 04/11/2022 Depression Screening 04/11/2022 Falls Risk Assessment 04/11/2022 Hepatitis C Screening 04/11/2022 Lung Cancer Screening (Low Dose CT) 04/11/2022 Osteoporosis Screening (Bone Density Screening) 04/11/2022 Social Influencers of Health Screening 04/11/2022 Hypertension/CHF/CAD Annual BMP Blood Test 04/22/2022 Influenza Vaccine (#1) 2024 HIB Vaccines Aged Out No longer eligi ble based on patient's age to complete this topic HPV Vaccines Aged Out No longer eligi ble based on patient's age to complete this topic Hepatitis A Vaccines Aged Out No long er eligible based on patient's age to complete this topic Hepatitis B Vaccines Aged Out No long er eligible based on patient's age to complete this topic IPV Vaccines Aged Out No longer eligi ble based on patient's age to complete this topic MMR Vaccines Aged Out No longer eligi ble based on patient's age to complete this topic Meningococcal ACWY Vaccine Aged Out N o longer eligible based on patient's age to complete this topic RSV Immunization Patients Un blanche 20 months Aged Out No longer eligible b ased on patient's age to complete this topic Varicella Vaccines Aged Out No longer eligible based on patient's age to complete this topic Advance Directives Documents on File Type Date Recorded Patient Gage Designer Expl anation Health Care Decision (hx) 11/19/2021 AD CHOW DIRECTIVE Health Care Decision (hx) 11/19/2021 AD CHOW DIRECTIVE Health Care Decision (hx) 11/19/2021 AD CHOW DIRECTIVE Health Care Decision (hx) 11/19/2021 AD CHOW DIRECTIVE Care Teams Facsimile Machine Operator Relationship Specialty Start Date End Date Renea King MD [address] [place] [phone] PCP - General 10/09/21
--- OUTSIDE RECORDS SUMMARY | 2024-06-21 12:16 | XMS_ITS | Encounter Summary ---
Author Organization [employer] [facility] Address [address] [place] [address] 7[address] [place] [address] Care Team Providers Care Employee Benefits Coordinator Name Role Phone Renea King MD Primary Care Provider [phone] Shen Blakely PharmD Unavailable [phone] Reason for Referral * Consultation (Routine) - Authorized Specialty Diagnoses / Procedures Referred By Contac t Referred To Contact Pharmacy Diagnoses Primary hypertension COPD with asthma (CMS/HCC) Renea King MD [address] [place] [address] Phone: tel: fax: Referral ID Status Reason Start Date Expiration Date Visits Requested Visits Authorized [id number] Authorized Consult and Treat 02/17/2024 02/16/2025 6 6 Encounter Details Date Type Department Care Team (Late st Contact Info) Description 02/17/2024 Orders Only [facility] MEDICINE [address] [place], [place] [phone] Renea King MD [address], [place] [phone] Primary hypertension (Primary Dx); COPD with asthma (CMS/HCC) Social History Tobacco Use Types Packs/Day Years Used Date Smoking Tobacco: Former Cigarettes Passive Smoke Exposure: Past Smokeless Tobacco: Never Depression Answer Date Recorded Patient Health Questionnaire-9 Score 10 08/03/2022 Housing Stability Answer Date Recorded What is [...] Answer Date Recorded Patient Health Questionnaire-2 Score 3 08/03/2022 Internet Access Answer Date Recorded Internet Access [...] Description 09/26/2024 10:00 AM EDT Office Visit [facility] OPTOMETRY [address] [place] [address] Milad, Angela, OD [address] [place] [address] 10/05/2024 10:00 AM EDT Medication Management [facility] [address] [place] [address] Shen Blakely, PharmD [address] [place] [address] Scheduled Referrals Name Type Priority Associated Diagnoses Orde r Schedule Referral to Pharmacy CDTM Outpatient Referral Routine Primary hypertension COPD with asthma ([facility]) Ordered: 02/17/2024 documented as of this encounter Goals Goal Patient Goal Type Associated Problems Recent Progress Patient-Stated? Author Blood Pressure < 150/90 Blood Pressure 132/68( 024 10:16 AM EST) No Shen Blakely, PharmD documented as of this encounter Procedures Procedure Name Priority Date/Time Associated Diagnosis Comments HIGH SENSITIVITY TROPONIN I Routine 06/12/2024 7:58 PM EST Primary hypertension CBC WITH AUTO DIFFERENTIAL Routine 06/12/2024 7:58 PM EST Primary hypertension PROTHROMBIN TIME-INR Routine 06/12/2024 7:58 PM EST Primary hypertension MAGNESIUM Routine 06/12/2024 7:58 PM EST Primary hypertension COMPREHENSIVE METABOLIC PANEL Routine 06/12/2024 7:58 PM EST Primary hypertension documented in this encounter Results * High Sensitivity Troponin I (06/12/2024 7:58 PM EST) [facility] TROPONIN I HIGH SENSITIVITY <2.7 <3.5 - 17.0 ng/L [facility] Comment:The Barr high sens itivity Troponin-I results should beused in conjunction with other diagnostic information suchas ECG, clinical observations and information, and patientsymptoms to aid in the diagnosis of VT. 06/12/2024 7:58 PM EST 06/12/2024 8:03 PM EST us Generic External Data Provider LAB BLOOD ORDERAB LES Final Result [facility] [address] [place] [phone] * Magnesium (06/12/2024 7:58 PM EST) [facility] Magnesium 2.2 1.6 - 2.6 mg/dL [facility] 06/12/2024 7:58 PM EST 06/12/2024 8:03 PM EST us Generic External Data Provider LAB BLOOD ORDERAB LES Final Result [facility] [address] [place], [place] [phone] * (ABNORMAL) Comprehensive Metabolic Panel (06/12/2024 7:58 PM EST) Sodium 142 135 - 145 mmol/L [facility] Potassium 4.2 3.3 - 5.1 mmol/L [facility] Chloride 102 96 - 108 mmol/L [facility] Carbon Dioxide 23 22 - 29 mmol/L [facility] Anion Gap 21(H) 12 - 20 [facility] Urea Nitrogen (BUN) 18(H) 9 - 16 mg/dL [facility] Creatinine, Serum 0.81 0.5 - 1.4 mg/dL [facility] Creatinine Clr Calc Pharmacy 60.5 [facility] Comment:Provided height and weight: 157.48 cm,95.254 kg.eGFR (calculated from the MDRD study equation) and eCrCl(calculated from the Cockcroft-Gault equation) are based ondifferent parameters and may not yield comparable results.If eCrCl result is absurd, please check patient'sheight/weight. Estimated Glomerular Filt Rate >60 [facility] Comment:Chronic Kidney Disea se: Estimated GFR < 60 mL/min/1.30e9Cbulsc Kidney Disease: Estimated GFR < 15 mL/min/1.73m2 Glucose 126(H) 60 - 115 mg/dL [facility] Calcium 9.2 8.4 - 10.2 mg/dL [facility] Bilirubin, Total 0.4 0.0 - 1.0 mg/dL [facility] Aspartate Amino Transferase 19 5 - 31 U/L [facility] Alanine Aminotransferase 14 0 - 31 U/L [facility] Total Protein 7.7 6.5 - 8.0 g/dL [facility] Albumin Level 4.4 3.5 - 5.0 g/dL [facility] Alkaline Phosphatase 69 39 - 117 U/L [facility] 06/12/2024 7:58 PM EST 06/12/2024 8:03 PM EST us Generic External Data Provider LAB BLOOD ORDERAB LES Final Result Performing Organization Address [facility]/ZIP Co de Phone Number [facility] [address] [place] [phone] * (ABNORMAL) Prothrombin Time-INR (06/12/2024 7:58 PM EST) Pathologist [facility] Prothrombin Time 10.4(L) 10.9 - 12.4 SEC [facility] INTERNATIONAL NORM RATIO 0.9 0.9 - 1.1 [facility] Comment:INTERNATIONAL NORMAL IZED RATIO (INR) REFERENCE RANGES Reference RangeFor patients not on anticoagulant therapy: 0.9 - 1.1INR ranges for oral anticoagulanttherapy:For prevention and treatment of venous thrombosis and pulmonary embolism: 2.0 - 3.0For acute myocardial infarction with aspirin therapy: 2.0 - 3.0For acute myocardial infarction without aspirin therapy: 3.0 - 4.0For patients with mechanical prosthetic heart valves: 2.5 - 3.5 06/12/2024 7:58 PM EST 06/12/2024 8:03 PM EST us Generic External Data Provider LAB BLOOD ORDERAB LES Final Result Performing Organization Address [facility] Co de Phone Number [facility] [address] [place] [phone] * (ABNORMAL) CBC auto differential (06/12/2024 7:58 PM EST) Pathologist [facility] White Blood Count 14.9(H) 4.8 - 10.8 X10*3/uL [facility] Red Blood Count 4.33 4.20 - 5.50 X10*6/uL [facility] Hemoglobin 12.4 12.0 - 16.0 g/dl [facility] Hematocrit 38.0 37.0 - 47.0 % [facility] Mean Corpuscular Volume 87.8 80.0 - 98.0 fL [facility] Mean Corpuscular Hemoglobin 28.6 27.0 - 33.0 pg [facility] Mean Corpuscular HGB Conc 32.6 31.0 - 35.0 g/dl [facility] Red Cell Distribution Width 14.3 11.0 - 16.0 % [facility] Platelet Count 306 160 - 400 X10*3/uL [facility] Mean Platelet Volume 9.6 9.4 - 12.3 fL [facility] Neutrophils Percent Auto 77.2(H) 45 - 73 % [facility] Imm Gran Pct Auto 0.4 0.0 - 0.4 % [facility] Lymphocytes Percent Auto 17.0(L) 20 - 40 % [facility] Monocytes Percent Auto 4.8 2 - 11 % [facility] Eosinophils Percent Auto 0.3 0 - 4 % [facility] Basophils Percent Auto 0.3 0 - 2 % [facility] NRBC Pct Auto 0.0 0.0 - 0.2 /100WBC [facility] Neutrophils Absolute Auto 11.5(H) 2.0 - 8.3 x10*3/uL [facility] Imm Gran Abs Auto 0.06(H) 0.00 - 0.03 X10*3/uL [facility] Lymphocytes Absolute Auto 2.5 1.2 - 4.9 X10*3/uL [facility] Monocytes Absolute Auto 0.7 0.1 - 1.2 X10*3/uL [facility] Eosinophils Absolute Auto 0.0 0.0 - 0.4 X10*3/uL [facility] Basophils Absolute Auto 0.1 0.0 - 0.2 X10*3/uL [facility] NRBC Abs Auto 0.000 0.0 - 0.012 X10*3/uL [facility] 06/12/2024 7:58 PM EST 06/12/2024 8:03 PM EST us Generic External Data Provider LAB BLOOD ORDERAB LES Final Result [facility] [address] [place] [phone] documented in this encounter Visit Diagnoses Diagnosis Primary hypertension- Primary Unspecified essential hypertension COPD with asthma ([facility]) documented in this encounter Additional Health Concerns Assessment Noted Time PHQ-9 Depression Total Score: 10 08/03/ 023 1:24 PM EDT documented as of this encounter Care Teams Employee Benefits Coordinator Relationship Specialty Start Date End Date Renea King MD [address] [place] [address] PCP - General Family Medicine 05/09/18 Shen Blakely, ChristopherD [address] [place] [phone] Pharmacist Internal Medicine 03/11/23 documented as of this encounter
--- OUTSIDE RECORDS SUMMARY | 2024-06-21 12:16 | XMS_ITS | Encounter Summary ---
Author Organization [facility] Address [address] [place] [address] [address] [place] [address] Care Team Providers Care Crater And Packer Name Role Phone Renea King MD Primary Care Provider [phone] Shen Blakely PharmD Unavailable [phone] Reason for Visit * Reason Onset Date Comments FYI 01/13/2023 Encounter Details Date Type Department Care Team (Late st Contact Info) Description 01/13/2023 Telephone [facility] MEDICINE [address] [place], [place] [phone] Renea King MD [address] [place], [place] [phone] FYI Social History Tobacco Use Types Packs/Day Years Used Date Smoking Tobacco: Former Cigarettes Passive Smoke Exposure: Past Smokeless Tobacco: Never Depression Answer Date Recorded Patient Health Questionnaire-9 Score 10 08/03/2022 Depression Answer Date Recorded Patient Health Questionnaire-2 Score 3 08/03/2022 Comments Unknown Sex and Gender Information Value Date Recorded Sex Assigned at Female 03/08/2022 10:21 AM EDT Legal Sex Female 10:21 AM EDT Gender Identity Female 03/08/2022 10:21 AM EDT Sexual Orientation Choose not to disclose 2021 10:21 AM EDT documented as of this encounter Miscellaneous Notes * Telephone Encounter - Bruna Gray - 01/13/2023 1:25 PM EDT Tc from Tiffani AGER TENDER with [employer] informing that she have seen pt on 01/12/2023 and informs that ptadvised that she has not have any problem in remember but Tiffani ran a abnormal Mini Cog and pt could not draw a clock. Tiffani also informs that pt is at high risk fall due to pt having a fall two months ago and did not report it over to provider. Tiffani also ran an A1C result were 6.3 and informs that pt is not diabetic. Pt also advised Tiffani that her Depression has increased but has no signs of being suicidal and that Tiffani also ran an PHQ9: 18 was the result. Pt also reported to Tiffani that she had a pain level of 10 out of 10 but Tiffani reports that pt did not seemed of that level of pain she looked comfortable of end view. Pt advised she is taking tynelol for pain and it seemed to be helping. Tiffani advised pt had a murmur over the Aortic region and pt reported it was new. Pt also informed tiffani that every time she walks she feels out of breath and Tiffani reports she is unsure if the Murmur is causing this shortness of breath or pt being a little over weight: 216 dueto her height: 5 ft and pt BMI was 42. If any questions please contact Tiffani at [phone] documented in this encounter Plan of Treatment Upcoming Encounters Date Type Department Care Team (Late st Contact Info) Description 09/26/2024 10:00 AM EDT Office Visit [facility] OPTOMETRY [address] [place] [address] Angela Stinson, OD [address] [place] [address] 10/05/2024 10:00 AM EDT Medication Management [facility] [address] [place] [address] Shen Blakely, PharmD [address] [place] [address] documented as of this encounter Visit Diagnoses Not on filedocumented in this encounter Additional Health Concerns Assessment Noted Time PHQ-9 Depression Total Score: 10 023 1:24 PM EDT documented as of this encounter Care Teams Crater And Packer Relationship Specialty Start Date End Date Renea King MD [address] [place] [address] PCP - General Family Medicine 05/09/18 Shen Blakely, ChristopherD [address] [place] [address] Pharmacist Internal Medicine 03/11/23 documented as of this encounter
--- OUTSIDE RECORDS SUMMARY | 2024-06-21 12:16 | XMS_ITS | Encounter Summary ---
Author Organization [employer] Address [address] [place] [address] 7[address] [place] [address] Care Team Providers Care Dial Screw Assembler Name Role Phone Renea King MD Primary Care Provider Shen Blakely PharmD Unavailable [phone] Reason for Visit * Reason Comments Med Refill Encounter Details Date Type Department Care Team (Late st Contact Info) Description 06/14/2024 Refill [facility] MEDICINE [address] [place], [place] [phone] Ozzy Saenz MD [address] [place], [place] [phone] Vitamin D deficiency Social History Tobacco Use Types Packs/Day Years [...] your housing situation today? I have mike lalo 12/15/[address] you li [...] Description 09/26/2024 10:00 AM EDT Office Visit [facility] OPTOMETRY [address] [place] [address] Milad, Angela, OD [address] [place] [address] 10/05/2024 10:00 AM EDT Medication Management [facility] [address] [place] [address] Shen Blakely PharmD [address] [place] [address] documented as of this encounter Goals Goal Patient Goal Type Associated Problems Recent Progress Patient-Stated? Author Blood Pressure < 150/90 Blood Pressure 132/68( 10:16 AM EST) No Shen Blakely, Rom documented as of this encounter Visit Diagnoses Diagnosis Vitamin D deficiency documented in this encounter Additional Health Concerns Assessment Noted Time PHQ-9 Depression Total Score: 17 9:41 AM EST documented as of this encounter Care Teams Dial Screw Assembler Relationship Specialty Start Date End Date Renea King MD [address] [place] [address] PCP - General Family Medicine 05/09/18 Shen Blakely, ChristopherD [address] [place] [address] Pharmacist Internal Medicine 03/11/23 documented as of this encounter
--- OUTSIDE RECORDS SUMMARY | 2024-06-21 12:16 | XMS_ITS | Encounter Summary ---
Author Organization [employer] [facility] Address [address] [place] [address] [address] [place] [address] Care Team Providers Care Kiln Car Unloader Name Role Phone Renea King MD Primary Care Provider [phone] Shen Blakely PharmD Unavailable [phone] Encounter Details Date Type Department Care Team (Late Contact Info) Description 05/14/2022 Orders Only [facility] MED[facility] [address] [place] [address] Joanne Long, RN [address] [place] [address] Social History Tobacco Use Types Packs/Day Years [...] Encounters Date Type Department Care Team (Late Contact Info) Description 09/26/2024 10:00 AM EDT Office Visit [facility] OPTOMETRY [address] [place], [place] [phone] Angela Stinson, OD [address] [place] [address] 10/05/2024 10:00 AM EDT Medication Management [facility] [address] [place] [address] Shen Blakely, PharmD [address] [place] [address] documented as of this encounter Procedures Procedure Name Priority Date/Time Associated Diagnosis Comments BI MAMMOGRAM SCREENING TOMOSYNTHESIS BILATERAL Routine 06/08/2022 10:50 AM EST documented in this encounter Results * BI Mammogram Screening Tomosynthesis Bilateral (06/08/2022 10:50 AM EST) Anatomical Region Laterality Modality Breast Bilateral Mammography 06/08/2022 10:5 0 AM EST Narrative 06/09/2022 2:55 PM EST ? [facility] [place] ? [address] ?[place] [address] ? Mammography Report ? Signed ? Patient: Sana,Kim ?MR#: [id number] ? : 1945 ?Acct:[id number] ? Age/Sex: 76 / F ?ADM Date: 06/08/22 ? Loc: HO.MAMMO ? Attending Dr: Renea King MD ? Ordering Physician: Renea King MD ?Results: 2Benign F ?? indings ? Date of Service: 06/08/22 ?Follow Up: 1 Year From Orig ?? inal Mammogram ? Procedure(s): MM tomosynthesis screening BI ?? Accession Number(s): [id number] ? cc: Renea King MD ? EXAMINATION: ?? MM SCREENING DIGITAL BREAST TOMOSYNTHESIS, BILATERAL ? CLINICAL INFORMATION: ? Screening. Asymptomatic. ? The lifetime risk of breast cancer based on the Tyrer-Cuzick Model is ?? 1%. ? COMPARISON: ?? Mammography: 06/02/2021, 12/26/2018, 11/04/2017 ? TECHNIQUE: ?? Digital breast tomosynthesis is performed in both the craniocaudal and ?? mediolateral oblique views along with computer-aided detection (CAD). ?? Synthesized 2D images are generated from the tomosynthesis. ??Additional ?? bilateral MLO views are provided. ? FINDINGS: ?? There are scattered areas of fibroglandular density (ACR BI-RADS breast ?? composition Category b). ? There is no developing density or architectural abnormality. Again, ?? scattered bilateral vascular and ductal secretory calcifications are ?? present. There are no significant masses, abnormal calcifications, or ?? other abnormalities. ?? The axilla are unremarkable. No significant ?? changes. ? MM/MM tomosynthesis screening BI ?? IMPRESSION: ?? No mammographic evidence of malignancy. ? ASSESSMENT: ? BI-RADS 2: Benign ? RECOMMENDATION: ?? Routine annual mammography screening. ? This patient's information was entered into a reminder system with a ?? target due date for their next mammogram. ? Dictated By: ?Tyson Greene MD ? Signed By: ?<Electronically signed by Tyson Greene MD in OV> ?06/09/22 1452 ? DD/ 1050 ? TD/TT: ? Media Sales Representative: ALLEN ? Procedure Note Brooks, Image - 06/09/2022 [facility] [address] [place] [address] [place] [address] Mammography Report Signed Patient: Paris Hood#: [id number] : 5Acct:[id number] Age/Sex: 76 / FADM Date: 06/08/22 Loc: JALEN Attending Dr: Renea King MD Ordering Physician: Sakurai,Renea MDResults: 2Benign F indings Date of Service: 06/08/22Follow Up: 1 Year From Orig inal Mammogram Procedure(s): MM tomosynthesis screening BI Accession Number(s): [id number] cc: Renea King MD EXAMINATION: MM SCREENING DIGITAL BREAST TOMOSYNTHESIS, BILATERAL CLINICAL INFORMATION: Screening. Asymptomatic. The lifetime risk of breast cancer based on the Tyrer-Cuzick Model is 1%. COMPARISON: Mammography: 06/02/2021, 12/26/2018, 11/04/2017 TECHNIQUE: Digital breast tomosynthesis is performed in both the craniocaudal and mediolateral oblique views along with computer-aided detection (CAD). Synthesized 2D images are generated from the tomosynthesis. Additional bilateral MLO views are provided. FINDINGS: There are scattered areas of fibroglandular density (ACR BI-RADS breast composition Category b). There is no developing density or architectural abnormality. Again, scattered bilateral vascular and ductal secretory calcifications are present. There are no significant masses, abnormal calcifications, or other abnormalities. The axilla are unremarkable. No significant changes. MM/MM tomosynthesis screening BI IMPRESSION: No mammographic evidence of malignancy. ASSESSMENT: BI-RADS 2: Benign RECOMMENDATION: Routine annual mammography screening. This patient's information was entered into a reminder system with a target due date for their next mammogram. Dictated By: Tyson Greene MD Signed By: <Electronically signed by Tyson Greene MD in OV> 06/09/22 1452 DD/ 1050 TD/TT: Media Sales Representative: ALLEN [facility] External Provider IMG BI PROCEDURES Final Result documented in this encounter Visit Diagnoses Not on filedocumented in this encounter Care Teams Kiln Car Unloader Relationship Specialty Start Date End Date Renea King MD [address] [place] [address] PCP - General Family Medicine 05/09/18 Shen Blakely, ChristopherD [address] [place] [address] Pharmacist Internal Medicine 03/11/23 documented as of this encounter
--- OUTSIDE RECORDS SUMMARY | 2024-06-21 12:16 | XMS_ITS | Clinical Summary ---
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 Name Role Phone Renea King MD Primary Care Provider [phone] Shen Blakely PharmD Unavailable [phone] Allergies No known active allergies Medications albuterol 108 (90 Base) MCG/ACT inhaler INHALE 2 PUFFS BY MOUTH EVERY 6 HOURS NEEDED FOR SHORTNESS OF BREATH 02/26/20 22 Active Anoro Ellipta 62.5-25 MCG/ACT aerosol powder INHALE 1 PUFF EVERY DAY AT THE SAME TIME 07/08/19 23 Active Blood Pressure Monitor kit Check blood pressure once daily and as needed 1 kit 08/04/19 23 Active cetirizine (ZyrTEC) 10 MG tablet TAKE 1 TABLET BY MOUTH EVERY MORNING 90 tablet 3 10/23/19 23 Active guaiFENesin (Mucinex) 600 MG 12 hr tablet Take 1 tablet by mouth twice daily as needed for productive cough 60 tablet 11 06/13/19 24 Active alendronate (Fosamax) 70 MG tablet Take 1 tablet (70 mg) by mouth every 7 (seven) days. Take in the morning with a full glass of water, on an empty stomach, and do not take anything else by mouth or lie down for the next 30 min. 4 tablet 11 09/22/19 24 025 Active amLODIPine (Norvasc) 5 MG tabletIndication s:Primary hypertension Take 1 tablet by mouth once daily 90 tablet 3 09/29/19 24 Active traZODone (Desyrel) 150 MG tablet TAKE 1 TABLET BY MOUTH AT BEDTIME 90 tablet 3 10/06/19 24 Active fluticasone (Flonase) 50 MCG/ACT nasal spray INSTILL 1 SPRAY IN EACH NOSTRIL ONCE DAILY 09/30/19 24 Active amitriptyline (Elavil) 75 MG tablet TAKE 1 TABLET BY MOUTH AT BEDTIME 90 tablet 1 01/30/20 24 Active losartan (Cozaar) 100 MG tablet TAKE 1 TABLET BY MOUTH EVERY MORNING 90 tablet 1 01/30/20 24 Active hydrOXYzine HCl (Atarax) 25 MG tabletIndication s:Anxiety Take 1 tablet (25 mg) by mouth if needed in the morning and at bedtime for anxiety or itching. 60 tablet 2 04/30/20 24 Active allopurinol (Zyloprim) 100 MG tablet TAKE 1 TABLET BY MOUTH EVERY MORNING 90 tablet 3 06/14/19 25 Active rosuvastatin (Crestor) 5 MG tablet TAKE 1 TABLET BY MOUTH AT BEDTIME 90 tablet 3 06/14/19 25 Active cholecalciferol (Vitamin D-3) 25 MCG tabletIndication s:Vitamin D deficiency TAKE 1 TABLET BY MOUTH EVERY MORNING 90 tablet 1 06/14/19 25 Active allopurinol (Zyloprim) 100 MG tablet TAKE 1 TABLET BY MOUTH EVERY MORNING 90 tablet 3 07/11/19 24 025 Discontinued rosuvastatin (Crestor) 5 MG tablet TAKE 1 TABLET BY MOUTH AT BEDTIME 90 tablet 3 07/11/19 24 025 Discontinued cholecalciferol (Vitamin D-3) 25 MCG tabletIndication s:Vitamin D deficiency TAKE 1 TABLET BY MOUTH EVERY MORNING 90 tablet 03/22/20 24 025 Discontinued Active Problems Problem Noted Date Diagnosed Date Osteoporosis 09/22/2023 Assessment & Plan (04/29/2024 5:49 PM EST): - 07/22/23 DEXA shows osteoporosis, she will start alendronate (fosamax) 70 mg weekly, patient was advised to continue weight bearing exercises, discussed about fall precautions - Risk factors: post-menopause; prior hx smoking; vitamin D deficiency Assessment & Plan (09/22/2023 12:17 PM EDT): - 07/22/23 DEXA shows osteoporosis, she will start alendronate (fosamax) 70 mg weekly, patient was advised to continue weight bearing exercises, discussed about fall precautions - Risk factors: post-menopause; prior hx smoking; vitamin D deficiency Tubular adenoma of colon 08/14/2022 Assessment & Plan (04/29/2024 5:48 PM EST): -last colonoscopy 08/31/21: Small cessile polyp -work on risk factor management Assessment & Plan (08/14/2022 6:35 PM EDT): -last colonoscopy 08/31/21: Small cessile polyp -work on risk factor management History of cholecystectomy 08/03/2022 Malignant neoplasm of upper lobe of right lung 0 08/03/2022 Overview (04/29/2024): - Dx November 2021 - Stage IA. Adenocarcinoma. - s/p RUL Assessment & Plan (04/29/2024 5:47 PM EST): -Dx in November 2021 -Stage IA Adenocarcinoma -s/p Right upper lobectomy on 11/11/[address] Nicole. -No matatasis, no chemotherapy indicated. -Most recent imaging study: CT on 01/31/24 No recurrence. No new nodules. No lymphadenopathy. -Last seen by Dr. Nicole, thoracic surgeon in Jan 2024, -Plan is to continue surveillance CT scan, next in 1 year Assessment & Plan (09/22/2023 9:55 AM EDT): -Dx in November 2022 -Stage IA Adenocarcinoma -s/p Right upper lobectomy on 11/11/21. -No matatasis, no chemotherapy indicated. -Recent imaging study: CT on 05/13/22 No recurrence. No new nodules. No lymphadenopathy. -Most recent imaging study: CT on 12/17/22 showed postsurgical changes RUL. A 3 mm nodule in RLL. No abnormal lymph nodes. -Last seen by Dr. Nicole, thoracic surgeon in Dec 2022, -Plan is to continue CT scan every 6mo for 2 yrs and then every 12mo for 3 yrs Assessment & Plan (06/13/2023 5:04 PM EST): -Dx in November 2022 -Stage IA Adenocarcinoma -s/p Right upper lobectomy on 11/11/21. -No matatasis, no chemotherapy indicated. -Recent imaging study: CT on 05/13/22 No recurrence. No new nodules. No lymphadenopathy. -Most recent imaging study: CT on 12/17/22 showed postsurgical changes RUL. A 3 mm nodule in RLL. No abnormal lymph nodes. -Last seen by Dr. Nicole, thoracic surgeon in Dec 2022, -Plan is to continue CT scan every 6mo for 2 yrs and then every 12mo for 3 yrs Assessment & Plan (12/12/2022 7:15 AM EDT): -Dx in November 2022 -Stage IA Adenocarcinoma -s/p Right upper lobectomy on 11/11/21. -No matatasis, no chemotherapy indicated. -Most recent imaging study: CT on 05/13/22 No recurrence. No new nodules. No lymphadenopathy. -Last seen by Dr. Nicole, thoracic surgeon on 05/21/22, recommended a CT scan every 6mo for 2 yrs and then every 12mo for 3 yrs. - Check the status of CT scan Assessment & Plan (08/14/2022 6:24 PM EDT): -Dx in November 2022 -Stage IA Adenocarcinoma -s/p Right upper lobectomy on 11/11/21. -No matatasis, no chemotherapy indicated. -Most recent imaging study: CT on 05/13/22 No recurrence. No new nodules. No lymphadenopathy. -Last seen by Dr. Nicole, thoracic surgeon on 05/21/22, recommended a CT scan every 6mo for 2 yrs and then every 12mo for 3 yrs. Gout 08/03/2022 Assessment & Plan (04/29/2024 5:52 PM EST): -hyperuricemia -Last uric acid level 5.7 in September 2023, improved from 8.2 in 2019, 7.1 in 2022 -continue allopurinol 100 mg daily (started in July 2022) -continue low purine diet Assessment & Plan (06/13/2023 5:06 PM EST): -hyperuricemia -Last uric acid level 8.2 in 2019, 7.1 in 2022 -continue allopurinol 100 mg daily (started in July 2022) -continue low purine diet Assessment & Plan (12/12/2022 7:03 AM EDT): -hyperuricemia -Last uric acid level 8.2 in 2019, 7.1 in 2022 -continue allopurinol 100 mg daily (started in July 2022) -continue low purine diet Assessment & Plan (08/14/2022 6:40 PM EDT): -hyperuricemia -Last uric acid level 8.2 in 2019 -Pt is not on colchicine or allopurinol -check uric acid level; consider starting allopurinol if it is elevated Acquired solitary kidney 05/22/2018 Assessment & Plan (04/29/2024 5:49 PM EST): - surgically absent right kidney seen on CT - pt is unclear about the exact diagnosis Assessment & Plan (12/12/2022 7:02 AM EDT): - surgically absent right kidney seen on CT - pt is unclear about the exact diagnosis Bilateral tinnitus 05/31/2017 Mood disorder 06/15/2016 Mixed anxiety and depressive disorder 10/23/2015 Assessment & Plan (04/29/2024 5:50 PM EST): [facility] Current medications: amitriptyline, trazodone, and hydroxyzine Previously receiving in-home therapy / outreach through [facility]. She has a therapy dog. Although amitriptyline is high dose for her age, pt was unable to tolerate further decrease. Continue its judicious use. She has not been taking hydroxyzine for a while; Will resume today to be taken prn for anxiety. She was able to contract her safety today. Assessment & Plan (09/22/2023 9:56 AM EDT): [facility] Current medications: amitriptyline, trazodone, and hydroxyzine Previously receiving in-home therapy / outreach through [facility]. She has a therapy dog. Although amitriptyline is high dose for her age, pt was unable to tolerate further decrease. Continue its judicious use. She has not been taking hydroxyzine for a while; Will resume today to be taken prn for anxiety. She was able to contract her safety today. Assessment & Plan (06/13/2023 5:07 PM EST): [facility]: [facility] Current medications: amitriptyline, trazodone, and hydroxyzine Previously receiving in-home therapy / outreach through [facility]. She has a therapy dog. Although amitriptyline is high dose for her age, pt was unable to tolerate further decrease. Continue its judicious use. She has not been taking hydroxyzine for a while; Will resume today to be taken prn for anxiety. She was able to contract her safety today. Assessment & Plan (12/12/2022 7:11 AM EDT): [facility]: [facility] Current medications: amitriptyline, trazodone, and hydroxyzine Previously receiving in-home therapy / outreach through [facility]. She has a therapy dog. Although amitriptyline is high dose for her age, pt was unable to tolerate further decrease. Continue its judicious use. She has not been taking hydroxyzine for a while; Will resume today to be taken prn for anxiety. She was able to contract her safety today. Assessment & Plan (08/14/2022 6:32 PM EDT): [facility]: [facility] Current medications: amitriptyline, trazodone, and hydroxyzine Previously receiving in-home therapy / outreach through [facility]. She has a therapy dog. Although amitriptyline is high dose for her age, pt was unable to tolerate further decrease. Continue its judicious use. She has not been taking hydroxyzine for a while; Will resume today to be taken prn for anxiety. She was able to contract her safety today. Vitamin D deficiency 06/30/2015 Assessment & Plan (04/29/2024 5:49 PM EST): - continue vitamin D supplement Assessment & Plan (06/13/2023 5:06 PM EST): - continue vitamin D supplement - ordering DEXA Impaired fasting glucose 08/01/2014 Assessment & Plan (04/29/2024 5:50 PM EST): -2018 A1C 6.0% -10/04/23 A1C 5.9% -occasional prednisone use for gout and COPD exacerbation -Continue lifestyle modifications Assessment & Plan (09/22/2023 9:55 AM EDT): -2018 A1C 6.0% -10/03/22 A1C 5.9% -occasional prednisone use for gout and COPD exacerbation -Continue lifestyle modifications Assessment & Plan (06/13/2023 5:05 PM EST): -2018 A1C 6.0% -10/03/22 A1C 5.9% -occasional prednisone use for gout and COPD exacerbation -Continue lifestyle modifications Assessment & Plan (12/12/2022 7:12 AM EDT): -2018 A1C 6.0% -10/03/22 A1C 5.9% -occasional prednisone use for gout and COPD exacerbation -Continue lifestyle modifications Assessment & Plan (08/14/2022 6:37 PM EDT): -2018 A1C 6.0% -10/17/19 A1C 5.7% -occasional prednisone use for gout and COPD exacerbation -Continue lifestyle modifications COPD with asthma 07/19/2012 Assessment & Plan (04/29/2024 5:47 PM EST): -[place] [facility] [place] seen on 10/03/23, annual follow up. -last hospitalization for COPD exacerbation, 08/12-08/13/18, treated with steroid, doxycycline, and added Spiriva. -last hospitalization for Pnuemonia after RUL lobectomy in 11/2021, recieved Abx and steroid. -continue umeclidinium - vilanterol inhaler as maintenance. -continue mometasone inhaler as maintenance -continue Albuterol HFA, prn. -continue current effort to maintain non-smoking status. Assessment & Plan (09/22/2023 9:55 AM EDT): -[place] [facility] [facility] [place] seen on 09/29/22. -last hospitalization for COPD exacerbation, 08/12-08/13/18, treated with steroid, doxycycline, and added Spiriva. -last hospitalization for Pnuemonia after RUL lobectomy in 11/2021, recieved Abx and steroid. -continue umeclidinium - vilanterol inhaler as maintenance. -continue mometasone inhaler as maintenance -continue Albuterol HFA, prn. -continue current effort to maintain non-smoking status. Assessment & Plan (06/13/2023 5:00 PM EST): -Super[place] [facility] [place] seen on 09/29/22. -last hospitalization for COPD exacerbation, 08/12-08/13/18, treated with steroid, doxycycline, and added Spiriva. -last hospitalization for Pnuemonia after RUL lobectomy in 11/2021, recieved Abx and steroid. -continue umeclidinium - vilanterol inhaler as maintenance. -continue mometasone inhaler as maintenance -continue Albuterol HFA, prn. -continue current effort to maintain non-smoking status. Assessment & Plan (12/12/2022 7:15 AM EDT): -Supervisor [facility] [place] seen on 09/29/22. -last hospitalization for COPD exacerbation, 08/12-08/13/18, treated with steroid, doxycycline, and added Spiriva. -last hospitalization for Pnuemonia after RUL lobectomy in 11/2021, recieved Abx and steroid. -continue Anoro as maintenance. -continue Albuterol HFA, prn. -continue current effort to maintain non-smoking status. Assessment & Plan (08/14/2022 6:28 PM EDT): -Supervisor [facility] [place] last seen on 02/25/22. -last hospitalization for COPD exacerbation, 08/12-08/13/18, treated with steroid, doxycycline, and added Spiriva. -last hospitalization for Pnuemonia after RUL lobectomy in 11/2021, recieved Abx and steroid. -continue Spiriva as maintenance. -continue Flovent as maintenance. -continue Albuterol HFA, prn. -continue current effort to maintain non-smoking status. Allergic rhinitis 03/08/2012 Dyslipidemia 03/08/2012 Assessment & Plan (04/29/2024 5:52 PM EST): Current medication: Rosuvastatin 5 mg qhs Last lipid profile: 10/04/23 Continue working on lifestyle modification Assessment & Plan (09/22/2023 9:56 AM EDT): Current medication: Rosuvastatin 5 mg qhs Last lipid profile: 08/03/22 TC 243; TG 285; HDL 81; LDL 118 Continue working on lifestyle modification Assessment & Plan (06/13/2023 5:06 PM EST): Current medication: Rosuvastatin 5 mg qhs Last lipid profile: 08/03/22 TC 243; TG 285; HDL 81; LDL 118 Continue working on lifestyle modification Assessment & Plan (12/12/2022 7:05 AM EDT): Current medication: Rosuvastatin 5 mg qhs Last lipid profile: 08/03/22 TC 243; TG 285; HDL 81; LDL 118 Continue working on lifestyle modification Assessment & Plan (08/14/2022 6:34 PM EDT): Current medication: simvastatin 20 mg qhs Last lipid profile: 10/17/19 TC 189; TG 175; HDL 57; LDL 97 According to ACC/AHA guideline, 10-year ASCVD risk is 13 % and moderate to high-intensity statin therapy is recommended. Pt does not want to change her medication at this time. Emphasized the importance of lifestyle modification. Repeat fasting lipid profile Hypertension 03/08/2012 Assessment & Plan (04/29/2024 5:48 PM EST): -Goal BP < 150/90 per JNC-8 and < 130 per ACC/AHA guideline (Treatment threshold >= 130) -BP not at goal in the clinic, but normal at home -Continue working on lifestyle modifications -Recommended self-monitoring BP. -continue losartan 100 mg daily -continue amlodipine 2.5 mg daily -previously on HCTZ, which was discontinued due to gout Assessment & Plan (09/22/2023 9:55 AM EDT): -Goal BP < 150/90 per JNC-8 and < 130 per ACC/AHA guideline (Treatment threshold >= 130) -BP not at goal in the clinic, but normal at home -Continue working on lifestyle modifications -Recommended self-monitoring BP. -continue losartan 100 mg daily -continue amlodipine 2.5 mg daily -previously on HCTZ, which was discontinued due to gout -Follow up in 3-6 mo, sooner if any problem arises Assessment & Plan (06/13/2023 5:05 PM EST): -Goal BP < 150/90 per JNC-8 and < 130 per ACC/AHA guideline (Treatment threshold >= 130) -BP not at goal in the clinic, but normal at home -Continue working on lifestyle modifications -Recommended self-monitoring BP. -continue losartan 100 mg daily -continue amlodipine 2.5 mg daily -previously on HCTZ, which was discontinued due to gout -Follow up in 3-6 mo, sooner if any problem arises Assessment & Plan (12/12/2022 7:12 AM EDT): -Goal BP < 150/90 per JNC-8 and < 130 per ACC/AHA guideline (Treatment threshold >= 130) -BP not at goal -Continue working on lifestyle modifications -Recommended self-monitoring BP. -continue losartan 100 mg daily -add amlodipine 2.5 mg daily -previously on HCTZ, which was discontinued due to gout -Follow up in 3-6 mo, sooner if any problem arises Assessment & Plan (08/14/2022 6:30 PM EDT): -Goal BP < 150/90 per JNC-8 and < 130 per ACC/AHA guideline (Treatment threshold >= 130) -BP at goal -Continue working on lifestyle modifications -Recommended self-monitoring BP. -continue losartan 100 mg daily -previously on HCTZ, which was discontinued due to gout -Follow up in 3-6 mo, sooner if any problem arises Insomnia 03/08/2012 Obesity 03/08/2012 Assessment & Plan (04/30/2024 5:12 PM EST): She explains how she is making lifestyle changes - She bought a bike for more exercise - She is eating more fruits and vegetables (no rice or bread) Encounters Date Type Department Care Team Description 06/14/2024 Refill [facility] [address] [place] [id number] Ozzy Saenz MD Vitamin D deficiency 06/14/[address] [address] Renea King MD 06/12/2024 Orders Only [facility] External Provider, [facility] 05/04/2024 2:00 PM EST Telemedicine [address] [address] Shen Blakely, Rom Primary hypertension (Primary Dx); COPD with asthma (CMS/HCC) 04/30/2024 9:30 AM EST Office Visit [address] [address] Renea King MD Malignant neoplasm of upper lobe of right lung (CMS/HCC) (Primary Dx); COPD with asthma (CMS/HCC); Primary hypertension; Tubular adenoma of colon; Acquired solitary kidney; Osteoporosis without current pathological fracture, unspecified osteoporosis type; Vitamin D deficiency; Class 2 severe obesity due to excess calories with serious comorbidity and body mass index (BMI) of 39.0 to 39.9 in adult (CMS/HCC); Impaired fasting glucose; Mood disorder (CMS/HCC); Mixed anxiety and depressive disorder; History of cholecystectomy; Gout, unspecified cause, unspecified chronicity, unspecified site; Dyslipidemia; Bilateral tinnitus; Allergic rhinitis, unspecified seasonality, unspecified trigger; Anxiety 04/30/2024 Travel 04/23/2024 Telephone [facility] [address] [place] [address] [phone] Kathryn Pierre MA chart prep 04/19/2024 Patient Outreach [facility] [address] [place] [address] Renea King MD Pre-visit Planning (Pre-visit planning - LVM ) 04/02/2024 Telephone [facility] [address] [place] [address] Renea King MD 03/28/2024 10:00 AM EST Office Visit [facility] [address] [place] [address] Milad, Angela, OD Exudative age-related macular degeneration of left eye with active choroidal neovascularization (CMS/HCC) (Primary Dx); Pseudophakia of both eyes; Presbyopia 03/28/2024 Travel 03/27/2024 Telephone [facility] [address] [place] [address] Renea King MD 03/21/2024 Refill [facility] [address] [place] [address] Renea King MD Vitamin D deficiency from Last 3 Months Immunizations Name Administration Dates Next Due Influenza High-dose Quadrivalent Preservative Fr ee 02/01/2022,02/25/2020 Influenza Quadrivalent Adjuvanted 01/20/2021 Influenza injectable quadriv alent IIV4 with preservative 02/09/2016,01/28/2015 Influenza, High Dose Seasonal, Preservative Free 03/19/2019,12/28/2017 Influenza, IIV3, injectable 03/12/2014, 1 Influenza, Split (incl. purified surface antigen ) 02/20/2013,03/08/2012 Influenza, seasonal, injectable, preservative fr ee 01/10/2020 Influenza, trivalent, adjuvanted 02/04/2017 Pneumococcal Conjugate PCV 13 08/01/2014 Pneumococcal Polysaccharide PPSV23 06/15/2016, RSV Bivalent 09/22/2023 TD (adult), 2 Lf tetanus tox oid, preservative free, adsorbed 05/20/2009 Tdap 08/03/2022,03/08/2012 Zoster, Recombinant 02/27/2021,12/28/2017 Zoster, live 08/01/2014 Family History Medical History Relation Name Comments Colon cancer Sister Relation Name Status Comments Sister Social History Tobacco Use Types Packs/Day Years Used Date Smoking Tobacco: Former Cigarettes Passive Smoke Exposure: Past Smokeless Tobacco: Never Tobacco Cessation:Counseling Given: Not Answered Alcohol Use Standard Drinks/Week Comments Not Currently [...] not to disclose 2021 10:21 AM EDT Last Filed Vital Signs Vital Sign Reading Time Taken Comments Blood Pressure 132/68 04/30/2024 10:16 AM EST Pulse 81 04/30/2024 9:39 AM EST Temperature 35.8 ??C (96.4 ??F) 04/30/2024 9:39 AM ES T Respiratory Rate 16 04/30/2024 9:39 AM EST Oxygen Saturation 98% 04/30/2024 9:39 AM EST Inhaled Oxygen Concentration - - Weight 95.1 kg (209 lb 9.6 oz) 04/30/2024 9:39 A M EST Height 157.5 cm (5' 2 ) 04/30/2024 9:39 AM EST Body Mass Index 38.34 04/30/2024 9:39 AM EST Plan of Treatment Upcoming Encounters Date Type Department Care Team (Late st Contact Info) Description 09/26/2024 10:00 AM EDT Office Visit [facility] [address] [place] [address] Angela Stinson, OD [address] [place] [address] 10/05/2024 10:00 AM EDT Medication Management [facility] [address] [place] [address] Shen Blakely, PharmD [address] [place] [address] Health Maintenance Due Date Last Done Comments Dental Prophylaxis 1944 Dental X-Ray: Bitewings 1944 Dental X-Ray: Full Mouth 1944 Alcohol/Substance Use Screening 1956 Hepatitis C Screening 1962 Dental Oral Exam 11/05/2020 05/06/2020 COVID-19 Vaccine ( season) 2024 03/25/2021, 07/18/2020, 06/20/2020 Influenza Vaccine (#1) 2024 2, 01/20/2021, 02/25/2020, Additional history exists Diabetes: Hemoglobin A1C 10/03/2024 024, 08/03/2022, 10/17/2019 Depression Monitoring (PHQ-9) 10/29/2024 04/30/2024, 04/30/2024 SDOH Screening 12/14/2024 12/15/2023 Depression Screening 04/30/2025 04/30/2024, 04/30/20 24 Tobacco Screening 04/30/2025 04/30/2024 Lipid Panel 10/03/2028 10/04/2023, 08/03/2022 DTaP/Tdap/Td Vaccines (3 - Td or Tdap) 08/03/2032 08/03/2022, 03/08/2012, 05/20/2009 Pneumococcal Vaccine: 50+ Years Completed 06/15/2016, 08/01/2014, 05/20/2009 Zoster Vaccines Completed 02/27/2021, 12/08, 08/01/2014 RSV Patients and Patients Aged 60 years or older Completed 09/22/2023 HIB Vaccines Aged Out No longer eligi [...] patient's age to complete this topic Meningococcal Vaccine Aged Out No todd miguel eligible based on patient's age to complete this topic RSV under 20 months Aged Out No longe r eligible based on patient's age to complete this topic Rotavirus Vaccines Aged Out No longer eligible based on patient's age to complete this topic Goals Goal Patient Goal Type Associated Problems Recent Progress Patient-Stated? Author Blood Pressure < 150/90 Blood Pressure 132/68( 024 10:16 AM EST) No Shen Blakely, ChristopherD Procedures Procedure Name Priority Date/Time Associated Diagnosis Comments XR CHEST 2 VIEWS Routine 06/12/2024 8:35 PM EST HIGH SENSITIVITY TROPONIN I Routine 06/12/2024 7:58 PM EST Primary hypertension MAGNESIUM Routine 06/12/2024 7:58 PM EST Primary hypertension COMPREHENSIVE METABOLIC PANEL Routine 06/12/2024 7:58 PM EST Primary hypertension PROTHROMBIN TIME-INR Routine 06/12/2024 7:58 PM EST Primary hypertension CBC WITH AUTO DIFFERENTIAL Routine 06/12/2024 7:58 PM EST Primary hypertension OCT, RETINA - OU - BOTH EYES Routine 03/28/2024 10:00 AM EST Exudative age-related macular degeneration of left eye with active choroidal neovascularization (CMS/HCC) HEMOGLOBIN A1C Routine 10/04/2023 10:21 AM EDT Impaired fasting glucose LIPID PANEL WITH REFLEX TO DIRECT LDL Routine 10/04/2023 10:21 AM EDT Primary hypertension PERIODIC ORAL EVALUATION - ESTABLISHED PATIENT Routine 05/06/2020 12:00 AM EST from Last 3 Months or Most Recently Relevant to Health Maintenance Results * XR Chest 2 Views (06/12/2024 8:35 PM EST) Anatomical Region Laterality Modality Chest Radiographic Tawnya ging 06/12/2024 8:35 PM EST Narrative 06/12/2024 8:37 PM EST ? [facility] ?[address] ?[place] [address] ?XRay Report ? Signed ? Patient: Kim Hood ?MR#: [id number] ? : 1945 ?Acct:[id number] ? Age/Sex: 78 / F ?ADM Date: 06/12/24 ? Loc: HO.ED ? Attending Dr: ? Ordering Physician: Leigh Asif ?? Date of Service: 06/12/24 ?? Procedure(s): XR chest 2V ?? Accession Number(s): [id number] ? cc: Leigh Asif; Renea King MD [...] ? DD/ 34 ? TD/TT: 06/12/242034 ? Intake Clerk: ? Procedure Note Donotuseinterpreter, Image - 06/12/[address] [address] XRay Report Signed Patient: Paris Hood#: [id number] : 5Acct:[id number] Age/Sex: 78 / FADM Date: 06/12/24 Loc: HO.ED Attending Dr: Ordering Physician: Leigh Asif Date of Service: 06/12/24 Procedure(s): XR chest 2V Accession Number(s): [id number] cc: Leigh Asif; Renea King MD CLINICAL [...] in OV> 06/12/242035 DD/ 34 TD/TT: 06/12/242034 Intake Clerk: [facility] External Provider IMG XR PROCEDURES Edited Result - Final * High Sensitivity Troponin I (06/12/2024 7:58 PM EST) TROPONIN I HIGH SENSITIVITY <2.7 <3.5 - 17.0 ng/L [facility] Comment:The Barr high sens itivity Troponin-I results should beused in conjunction with other diagnostic information suchas ECG, clinical observations and information, and patientsymptoms to aid in the diagnosis of [place]. 06/12/2024 7:58 PM EST 06/12/2024 8:03 PM EST Generic External Data Provider LAB BLOOD ORDERAB LES Final Result [facility] [address] [place] [address] [phone] * (ABNORMAL) CBC auto differential (06/12/2024 7:58 PM EST) White Blood Count 14.9(H) 4.8 - 10.8 X10*3/uL [facility] Red Blood Count 4.33 4.20 - 5.50 X10*6/uL [facility] Hemoglobin 12.4 12.0 - 16.0 g/dl [facility] Hematocrit 38.0 37.0 - 47.0 % [facility] Mean Corpuscular Volume 87.8 80.0 - 98.0 fL [facility] Mean Corpuscular Hemoglobin 28.6 27.0 - 33.0 pg [facility] Mean Corpuscular HGB Conc 32.6 31.0 - 35.0 g/dl [facility] Red Cell Distribution Width 14.3 11.0 - 16.0 % [facility] Platelet Count 306 160 - 400 X10*3/uL [facility] Mean Platelet Volume 9.6 9.4 - 12.3 fL [facility] Neutrophils Percent Auto 77.2(H) 45 - 73 % [facility] Imm Gran Pct Auto 0.4 0.0 - 0.4 % [facility] Lymphocytes Percent Auto 17.0(L) 20 - 40 % [facility] Monocytes Percent Auto 4.8 2 - 11 % [facility] Eosinophils Percent Auto 0.3 0 - 4 % [facility] Basophils Percent Auto 0.3 0 - 2 % [facility] NRBC Pct Auto 0.0 0.0 - 0.2 /100WBC [facility] Neutrophils Absolute Auto 11.5(H) 2.0 - 8.3 x10*3/uL [facility] Imm Gran Abs Auto 0.06(H) 0.00 - 0.03 X10*3/uL [facility] Lymphocytes Absolute Auto 2.5 1.2 - 4.9 X10*3/uL [facility] Monocytes Absolute Auto 0.7 0.1 - 1.2 X10*3/uL [facility] Eosinophils Absolute Auto 0.0 0.0 - 0.4 X10*3/uL [facility] Basophils Absolute Auto 0.1 0.0 - 0.2 X10*3/uL [facility] NRBC Abs Auto 0.000 0.0 - 0.012 X10*3/uL [facility] 06/12/2024 7:58 PM EST 06/12/2024 8:03 PM EST Generic External Data Provider LAB BLOOD ORDERAB LES Final Result Performing Organization Address [facility] de Phone Number [facility] [address] [place] [phone] * (ABNORMAL) Prothrombin Time-INR (06/12/2024 7:58 PM EST) Prothrombin Time 10.4(L) 10.9 - 12.4 SEC [facility] INTERNATIONAL NORM RATIO 0.9 0.9 - 1.1 [facility] Comment:INTERNATIONAL NORMAL IZED RATIO (INR) REFERENCE [...] 7:58 PM EST 06/12/2024 8:03 PM EST [employer] External Data Provider LAB BLOOD ORDERAB LES Final Result Performing Organization Address [facility] Phone Number [facility] [address] [place] [phone] * Magnesium (06/12/2024 7:58 PM EST) Pathologist [facility] Magnesium 2.2 1.6 - 2.6 mg/dL [facility] 06/12/2024 7:58 PM EST 06/12/2024 8:03 PM EST us Generic External Data Provider LAB BLOOD ORDERAB LES Final Result [facility] [address] [place] [address] [phone] * (ABNORMAL) Comprehensive Metabolic Panel (06/12/2024 7:58 PM EST) Sodium 142 135 - 145 mmol/L [facility] Potassium 4.2 3.3 - 5.1 mmol/L [facility] Chloride 102 96 - 108 mmol/L [facility] Carbon Dioxide 23 22 - 29 mmol/L [facility] Anion Gap 21(H) 12 - 20 [facility] Urea Nitrogen (BUN) 18(H) 9 - 16 mg/dL [facility] Creatinine, Serum 0.81 0.5 - 1.4 mg/dL [facility] Creatinine Clr Calc Pharmacy 60.5 [facility] Comment:Provided height and weight: 157.48 cm,95.254 kg.eGFR (calculated from the MDRD study equation) and eCrCl(calculated from the Cockcroft-Gault equation) are based ondifferent parameters and may not yield comparable results.If eCrCl result is absurd, please check patient'sheight/weight. Estimated Glomerular Filt Rate >60 [facility] Comment:Chronic Kidney Disea se: Estimated GFR < 60 mL/min/1.01h7Cindfy Kidney Disease: Estimated GFR < 15 mL/min/1.73m2 Glucose 126(H) 60 - 115 mg/dL [facility] Calcium 9.2 8.4 - 10.2 mg/dL [facility] Bilirubin, Total 0.4 0.0 - 1.0 mg/dL [facility] Aspartate Amino Transferase 19 5 - 31 U/L [facility] Alanine Aminotransferase 14 0 - 31 U/L [facility] Total Protein 7.7 6.5 - 8.0 g/dL [facility] Albumin Level 4.4 3.5 - 5.0 g/dL [facility] Alkaline Phosphatase 69 39 - 117 U/L [facility] 06/12/2024 7:58 PM EST 06/12/2024 8:03 PM EST us Generic External Data Provider LAB BLOOD ORDERAB LES Final Result [facility] [address] [place] [address] [phone] * OCT, Retina - OU - Both Eyes (03/28/2024 10:00 AM EST) Narrative Angela Stinson, OD - 04/16/2024 3:38 PM EST OCT [facility] Optical Coherence Tomography Interpretation Report Measurements: OD ??OS Macula Thickness ??235 microns ??349 microns Test findings: OD: Normal foveal contour, no cystoid macula edema (CME), no retinal pigment epithelium (RPE) disruption, no subretinal fluid (SRF) OS: Tenting of fovea, no cystoid macular edema (CME), 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 Will refer to ophthalmology for further evaluation. us Angela Stinson OD OPHTH TOMOGRAPHY Final Result * Lipid Panel with Reflex to Direct LDL (10/04/2023 10:21 AM EDT) Triglycerides 95 <150 mg/dL [facility] Comment:Desirable Triglyceri de: less than 150 mg/dLBorderline High Triglyceride 150-199 mg/dLHigh Triglyceride: 200-499 mg/dLVery High Triglyceride: greater than or equal to 5OO mg/dL Cholesterol 168 <200 mg/dL [facility] Comment:Desirable Cholestero l: less than 200 mg/dLBorderline High Cholesterol: 200-239 mg/dLHigh Cholesterol: greater than 239 mg/dL LDL Cholesterol Calculated 78 <100 mg/dL [facility] Comment:Desirable LDL: less than 100 mg/dLNear Optimal/Above Optimal LDL: 110- 129 mg/dLBorderline High LDL: 130-159 mg/dLHigh LDL: 160-189 mg/dLVery High LDL: greater than or equal to 190 mg/dL HDL Cholesterol 71 >40 mg/dL [facility] Comment:Desirable HDL: great er than 40 mg/dL Note: This HDL assay may give artificially low results in patients with liver disease. Blood 10/04/2023 10:2 1 AM EDT 10/04/2023 11:27 AM EDT us Renea King MD LAB BLOOD ORDERABLES Final Resul t Performing Organization Address [facility] de Phone Number [facility] [address] [place] [phone] * Hemoglobin A1c (10/04/2023 10:21 AM EDT) Hemoglobin A1c 6.0 <6.0 % [facility] Comment:Hemoglobin A1C Refer ence Range Adults: 4.8 - 6.0 % Non diabetic: < 6.0 % Goal: < 7.0 %Additional Action Suggested: > 8.0 %Note: Hemoglobin A1c results are invalid for patients with abnormal amounts of HbF. Blood transfusions may impact the HbA1c concentration in the patient sample. Estimated Average Glucose 126 mg/dL [facility] Comment:eAG = Estimated ave rage glucose which is %A1C expressed asaverage glucose, using the formula of the O0J-GqxldhpDyqiazq Glucose study (ADAG), Diabetes Care, Vol.31,#8,Aug. 2007 Blood Venous blood specimen / Unknown 10/04/2023 10:21 AM EDT 10/04/2023 11:27 AM EDT Renea King MD LAB BLOOD ORDERABLES Final Resul t Performing Organization Address [facility] de Phone Number [facility] [address] [place] [phone] from Last 3 Months or Most Recently Relevant to Health Maintenance Insurance [facility] DUAL COMPLETE Care Teams Continuous Churn Buttermaker Relationship Specialty Start Date End Date Renea King MD [address] [place] [address] PCP - General Family Medicine 05/09/18 Shen Blakely, ChristopherD [address] [place], [place] [phone] Pharmacist Internal Medicine 03/11/23
--- OUTSIDE RECORDS SUMMARY | 2024-06-21 12:16 | XMS_ITS | Encounter Summary ---
Author Organization [employer] Address [address] [place] [address] [address] [place] [address] Care Team Providers Care Cutter And Edge Trimmer Name Role Phone Renea King MD Primary Care Provider [phone] Shen Blakely PharmD Unavailable Reason for Visit * Reason Onset Date Comments Appointment Request 12/29/2023 Encounter Details Date Type Department Care Team (Late st Contact Info) Description 12/29/2023 Telephone [facility] [address] [place], [place] [phone] Renae King MD [address] [place], [place] [phone] Appointment Request Social History Tobacco Use Types Packs/Day Years [...] * Telephone Encounter - Bruna Gray - 12/29/2023 10:23 AM EDT Tc from pt and pt daughter requesting to r/s PE appt on 12/29/23 due to having transportation issues. documented in this encounter Plan of Treatment Upcoming Encounters Date Type Department Care Team (Late st Contact Info) Description 09/26/2024 10:00 AM EDT Office Visit [facility] [address] [place] [address] Milad, Angela, OD [address] [place] [address] 10/05/2024 10:00 AM EDT Medication Management [facility] [address] [place] [address] Shen Blakely, PharmD [address] [place] [address] documented as of this encounter Goals Goal Patient Goal Type Associated Problems Recent Progress Patient-Stated? Author Blood Pressure < 150/90 Blood Pressure 132/68( 024 10:16 AM EST) No Shen Blakely, PharmYaneth documented as of this encounter Visit Diagnoses Not on filedocumented in this encounter Additional Health Concerns Assessment Noted Time PHQ-9 Depression Total Score: 10 023 1:24 PM EDT documented as of this encounter Care Teams Cutter And Edge Trimmer Relationship Specialty Start Date End Date Renea King MD [address] [place] [address] PCP - General Family Medicine 05/09/18 Shen Blakely, ChristopherD [address] [place] [address] Pharmacist Internal Medicine 03/11/23 documented as of this encounter
--- OUTSIDE RECORDS SUMMARY | 2024-06-21 12:16 | XMS_ITS | Encounter Summary ---
Author Organization [employer] Address [address] [place] [address] [address] [place] [address] Care Team Providers Care Crown Wheel Assembler Name Role Phone Renea King MD Primary Care Provider [phone] Shen Blakely PharmD Unavailable [phone] Reason for Visit * Reason Comments Med Refill Encounter Details Date Type Department Care Team (Late st Contact Info) Description 06/14/2024 Refill [facility] [address] [place], [place] [phone] Renea King MD [address] [place], [place] [phone] Social History Tobacco Use Types Packs/Day Years [...] 10:00 AM EDT Office Visit [facility] [address] [place] [address] Milad, Angela, OD [address] [place] [address] 10/05/2024 10:00 AM EDT Medication Management [facility] [address] [place] [address] Shen Blakely, ChristopherD [address] [place] [address] documented as of this encounter Goals Goal Patient Goal Type Associated Problems Recent Progress Patient-Stated? Author Blood Pressure < 150/90 Blood Pressure 132/68( 024 10:16 AM EST) No Shen Blakely, Rom documented as of this encounter Visit Diagnoses Not on filedocumented in this encounter Additional Health Concerns Assessment Noted Time PHQ-9 Depression Total Score: 17 9:41 AM EST documented as of this encounter Care Teams Crown Wheel Assembler Relationship Specialty Start Date End Date Renea King MD [address] [place] [phone] PCP - General Family Medicine 05/09/18 Shen Blakely, PharmD [address] [place] [address] [place] [address] Pharmacist Internal Medicine 03/11/23 documented as of this encounter
== END 2024-06-21 11:50 | disposition home or self-care (01) ==
LOC: HO.MAMMO 11:49
PROVIDERS: PCP Family Medicine; Visit Provider Family Medicine
DX: Z12.31 Encounter for screening mammogram for malignant neoplasm of breast (principal)
CPT/HCPCS: 77063; 77067

== ENCOUNTER → 2024-06-21 12:30 | Outpatient (BNV) | payer OTHER, SELFPAY | PROVIDERS: PCP Family Medicine; Visit Provider Internal Medicine | DX: Z12.31 Encounter for screening mammogram for malignant neoplasm of breast (principal) | CPT/HCPCS: 77063; 77067 ==

== ENCOUNTER 2024-10-04 12:46 | Outpatient (REF) | payer OTHER, SELFPAY ==
--- NOTE | ~2024-10-04 | XR_ITS ---
EXAMINATION: XR ANKLE 3 OR MORE VIEWS RIGHT HISTORY: painful swelling COMPARISON: There are no prior studies available for comparison. FINDINGS: Three views of the right ankle are submitted. Osseous mineralization is normal. There is no fracture or dislocation. The joint spaces are preserved. There is diffuse soft tissue swelling. There are vascular calcifications. XR/XR ankle RT min 3V IMPRESSION: Diffuse soft tissue swelling. No osseous abnormality is identified. Electronically signed by: Abdiel Rushing MD 10/04/2024 02:06 PM EDT
--- OUTSIDE RECORDS SUMMARY | 2024-10-04 12:48 | XMS_ITS | Clinical Summary ---
Author Organization [facility] Address [address] [place] [address] Care Team Providers Care Certified Dental Assistant Name Role Phone Renea King MD Primary Care Provider [phone] Surgical History Surgery Date Site/Laterality Comments CHOLECYSTECTOMY PROCEDURE: HISTORICAL CHOLECYSTECTOMY HYSTERECTOMY N/A PROCEDURE: HISTORICAL HYSTERECTOMY NEPHRECTOMY Right PROCEDURE: HISTORICAL NEPHRECTOMY OTHER SURGICAL HISTORY 11/11/2021 Right PROCEDURE: NV BRONCHOSCOPY W/CPTR-ASST IMAGE-GUIDED NAVIGATION OTHER SURGICAL HISTORY 11/11/2021 Right PROCEDURE: NV THORACOSCOPY W/DX WEDGE RESEXN ANATO LUNG RESEXN; COMMENT: right upper Medical History Medical History Date Comments Allergic rhinitis due to pollen DX:Allergic rhinitis due to pollen Arrhythmia DX:Arrhythmia COPD (chronic obstructive pu lmonary disease) ([facility] V24, [facility] V28) DX:COPD (chronic o bstructive pulmonary disease) ([facility]) Depression DX:Depression Elevated cholesterol DX:Elevated cholesterol GERD (gastroesophageal reflux disease) DX:GERD (gastroesophageal reflux disease) HTN (hypertension) DX:HTN (hyper tension) Hx of renal calculi DX:Hx of chai al calculi Pre-diabetes DX:Pre-diabetes Smoking addiction DX:Smoking add iction Tubular adenoma of colon DX:Tubu lar adenoma of colon Lung cancer ([facility] V24, [facility] V28) 12/03/2021 DX:Lung cancer ([facility]) Social History Tobacco Use Types Packs/Day Years [...] Last Done Comments COVID-19 Vaccine (#1) 1950 DTaP,Tdap,and Td Vaccines (1 - Tdap) 08/21/1964 Pneumococcal Vaccine: 50+ Ye ars (1 of 2 - PCV) 08/21/1963 Zoster Vaccines (1 of 2) 08/21/1964 RSV Immunization Adult Patie nts (1 - 1-dose 75+ series) 08/21/2019 Cholesterol Screening (Lipid Panel) 04/11/2022 Depression Screening 04/11/2022 Falls Risk Assessment 04/11/2022 Lung Cancer Screening (Low Dose CT) 04/11/2022 Osteoporosis Screening (Bone Density Screening) 04/11/2022 Social Influencers of Health Screening 04/11/2022 Hypertension/CHF/CAD Annual BMP Blood Test 04/22/2022 Influenza Vaccine (Season Ended) 2025 HIB Vaccines Aged Out No longer eligi [...] patient's age to complete this topic Meningococcal B Vaccine Aged Out No l onger eligible based on patient's age to complete this topic RSV Immunization Patients Un blanche 20 months Aged Out No longer eligible b ased on patient's age to complete this topic Varicella Vaccines Aged Out No longer eligible based on patient's age to complete this topic Advance Directives Documents on File Type Date Recorded Patient Casing Material Weigher Expl anation Health Care Decision (hx) 11/19/2021 AD CHOW DIRECTIVE Health Care Decision (hx) 11/19/2021 AD CHOW DIRECTIVE Health Care Decision (hx) 11/19/2021 AD CHOW DIRECTIVE Health Care Decision (hx) 11/19/2021 AD CHOW DIRECTIVE Care Teams Certified Dental Assistant Relationship Specialty Start Date End Date Renea King MD [address] [place] [phone] PCP - General 10/09/21
[2024-10-04 16:22] LABS: Estimated Average Glucose 126 mg/dL; Hemoglobin A1C 136.1992 umol/L; Total Hemoglobin (HGBA1C) 3252.5834 umol/L
[2024-10-04 17:03] LABS: Alanine Aminotransferase 20 U/L (0-31); Albumin Level 4.3 g/dL (3.5-5.0); Alkaline Phosphatase 66 U/L (39-117); Anion Gap 12 (12-20); Aspartate Amino Transferase 20 U/L (5-31); Bilirubin Total 0.3 mg/dL (0.0-1.0); Blood Urea Nitrogen 18 mg/dL (9-16); Calcium 9.3 mg/dL (8.4-10.2); Carbon Dioxide 26 mmol/L (22-29); Chloride 109 mmol/L (96-108); Cholesterol 162 mg/dL (<200); Estimated Glomerular Filt Rate > 60; Glucose Random 102 mg/dL (60-115); HDL Cholesterol 62 mg/dL (>40); LDL Cholesterol Calculated 62 mg/dL (<100); Potassium 4.7 mmol/L (3.3-5.1); Sodium 142 mmol/L (135-145); Total Protein 7.1 g/dL (6.5-8.0); Triglycerides 193 mg/dL (<150); Uric Acid 5.1 mg/dL (2.4-5.7)
[2024-10-04 17:31] LABS: Microalbum/Creatinine Ratio Ur 8.8 ug/mg cr (<30)
[2024-10-04 18:10] LABS: Reflex LDLD? No
== END 2024-10-04 12:47 | disposition home or self-care (01) ==
LOC: HO.HHCL 12:46
PROVIDERS: PCP Family Medicine; Visit Provider Family Medicine
DX: I10 Essential (primary) hypertension (principal); E78.5 Hyperlipidemia, unspecified; R73.01 Impaired fasting glucose; E55.9 Vitamin D deficiency, unspecified; M10.9 Gout, unspecified; M25.571 Pain in right ankle and joints of right foot
CPT/HCPCS: 36415; 73610; 80053; 80061; 82043; 82306; 82570; 83036; 84550

== ENCOUNTER → 2024-10-04 13:05 | Outpatient (BNV) | payer OTHER, SELFPAY | PROVIDERS: PCP Family Medicine; Visit Provider Radiology Diagnostic Radiology | DX: R22.41 Localized swelling, mass and lump, right lower limb (principal) | CPT/HCPCS: 73610 ==

== ENCOUNTER 2024-11-20 14:12 | Outpatient (AMB) | payer OTHER, SELFPAY ==
--- NOTE | 2024-11-20 14:29 | MHC.OFFVIS ---
Vital Signs 11/20/24 14:30 Height 5 ft 2 in Weight 210 lb 8.663 oz BMI 38.5 BP 170/70 H Blood Pressure Location Lt brachial Position Sitting Pulse 86 Pulse Source Pulse Oximeter Pulse Oximetry (%) 94 Oxygen Delivery Method Room Air Intake Visit Reasons: COPD Allergies No Known Allergies (No Known Allergies*) Allergy (Verified 11/20/24 14:32) HPI Comments Details: The patient is a 79-year-old woman with a known history of tobacco dependency in addition to pulmonary nodules. She has been followed closely by thoracic surgery regarding a subsolid nodule in the right upper lobe area. Unfortunately the nodule has been getting worse and now appears to be developing more solid areas which is concerning for for the malignant transformation. The patient is high risk because her smoking. Patient is planning to undergo a resection of this nodule density in the coming weeks. In the meantime she is doing well from the respiratory status. She does use Flovent maintenance and also has a rescue inhaler. The patient was educated on how to use her inhalers. She did undergo pulmonary function studies that I personally reviewed. The patient does not have any evidence of obstructive airway disease. However she does a decreased total lung capacity consistent with restrictive lung disease. in addition, her diffusing capacity was only 58% predicted suggesting moderate diffusion impairment. Explained to the patient that after surgery she may require oxygen for period time. The patient is a heavy smoker. She is working on quitting altogether. She is motivated. Although still very difficult for her. She is not interested in nicotine supplementation or medications to help her quit. She has done in the past which she quit for a prolonged period time without any medications. Therefore, she is going to continue on the current respiratory therapy. Will reassess her in about 4 months since she has had enough time to recover from her surgery and to assess her new baseline. 02/25/2022 the patient is here for a pulmonary follow-up visit. Since we last spoke the patient did undergo the navigational bronchoscopy with subsequent DAvinci right upper lobe lobectomy. 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 She did not need any additional therapies after that. She does need to get a CAT scan 6 months after the fact. Make sure she has that arranged. In the meantime her breathing has been well. She does have a recent cold that she is dealing with. She has not been using the Flovent she is concerned about thrush. She does have the Spiriva. Will go ahead and switch her to Anoro in order to provide her better bronchodilation. She also has a rescue inhaler available. Patient does have some nasal congestion and cough but nonproductive in nature. She is to be getting better and therefore does not need any therapy for that. She is not having any wheezing so therefore she does not require prednisone. If her symptoms do worsen she will call the office for additional therapies. 09/29/2022 the patient is here for pulmonary follow-up. Patient had brought has been doing well. She has been using the Anoro with good effect. She unfortunately is using her Flovent as a rescue. I did reeducated about her inhalers. She does not need to use her Flovent. I will send her albuterol to the pharmacy. Her last CT scan of the chest we did personally review back in May 2022 demonstrating stable postoperative changes. No new nodules. She should be getting another CT scan in October 2022. The patient is doing well she is exercising regularly. Will plan to follow-up in a year's time. 09/30/2023 the patient is here for a pulmonary follow-up visit. Overall the patient is doing okay. She continues on the Anoro with good effect. She has a rescue inhaler. She has not been using her Flovent which she is okay. She is having allergy symptoms now nasal congestion and runny nose due to the spring season. Will make sure to have her medications sent to the pharmacy. In meantime she is following closely with thoracic surgery. She was seen at [facility] per report. Will request the results of her last CT scan that she had about a month ago. Apparently no interventions required. She does have subcentimeter pulmonary nodules. She did have surgery for lung cancer stage I previously. 11/20/2024 the patient is here for a pulmonary follow-up visit. The patient overall has been doing okay although she has been complaining of lower extremity edema and some shortness of breath. Her blood pressure was also been elevated. She has not been able to get her inhaler Anoro that has been very affecting beneficial. She has a rescue inhaler. The patient does not take any salt. Although we did talk about dietary indiscretions with the process food. She has significant lower extremity edema. The last time she had blood work in the system her kidney function was normal. I will give her Lasix x3 days. She is already has blood work scheduled at the [facility]. I will make sure to send all the respiratory medications. She also had lung cancer diagnosed back in 2021 and she was following closely with [facility] thoracic surgery but she has not gone back and she does not want to go back to [facility] the patient states. Therefore will go ahead and order her next CT scan to follow-up with the lung cancer evaluation with a repeat CAT scan at this time. The patient return in 6 months. If she has any issues prior to that she will call for an earlier assessment. [facility] Medical History HLD (hyperlipidemia) Colon polyp Lung cancer (~2021) Allergic rhinitis Smoker Family history of colon cancer Pre-diabetes GERD (gastroesophageal reflux disease) Hx of renal calculi Depression COPD (chronic obstructive pulmonary disease) HTN (hypertension) Surgical History History of cholecystectomy (~2018) History of colonoscopy (~2021) History of hysterectomy (~1974) History of lobectomy of lung (~2021) History of right nephrectomy (~1986) Family History Father No problems noted. Mother No problems noted. Social History Patient Tobacco Use Status: Current everyday Tobacco user Tobacco use type: Cigarette Cigarette Packs Per Day: 1 Cigarettes Per Day: 10 Years Smoked: 50 Second Hand Smoke Exposure: No Review of Systems Const Denies chills, Denies daytime sleepiness, Denies fatigue, Denies fever(s), Denies frequent falls, Denies poor appetite, Denies snoring, Denies stops breathing during sleep, Denies weakness, Denies weight gain and Denies weight loss Eyes Denies loss of vision ENT Denies dizziness, Denies hearing loss, Reports nasal congestion and Reports nasal discharge Card Denies chest pain, Denies claudication, Denies leg edema, Denies lightheadedness, Denies palpitations, Denies dyspnea, Denies dyspnea on exertion and Denies orthopnea Resp Reports cough, Denies excessive phlegm production, Denies dyspnea, Denies dyspnea on exertion, Denies snoring and Denies wheezing GI Denies abdominal pain, Denies hematochezia, Denies change in bowel habits, Denies nausea and Denies vomiting Denies urinary frequency and Denies dysuria Musc Denies arthralgias, Denies muscle weakness, Denies numbness and Denies other (frequent falls) Skin/Breast Denies nail changes and Denies rash Neuro Denies Abnormal speech present, Denies dizziness, Denies frequent falls, Denies loss of vision, Denies memory loss, Denies numbness and Denies weakness Psych Denies depression and Denies memory loss Endo Denies fatigue and Denies palpitations Jayden/Lymph Reports easy bruising and Reports other (anemia) Aller/Immun Denies wheezing Physical Exam Vital Signs: Last Vital Signs Pulse 86 11/20/24 14:30 BP 170/70 H 11/20/24 14:30 Pulse Ox 94 11/20/24 14:30 Oxygen Delivery Method Room Air 11/20/24 14:30 BMI result Body Mass Index 38.5 Const General: comfortable and alert Orientation/consciousness: patient oriented x3 HEENT Head: Yes normocephalic and Yes atraumatic Neck Neck: Yes trachea midline, Yes supple and Yes no JVD Chest Chest palpation & inspection: normal inspection of the chest Resp Effort & Inspection: normal respiratory effort Auscultation: no rhonchi, no wheezes and diminished lung sounds Cardio Jugular venous distension: no JVD Palpation: normal PMI Rate: regular rate Rhythm: regular rhythm Heart sounds: S1 normal heart sound present, S2 normal heart sound present, no click, no gallops, no murmurs and no rubs GI Auscultation: normal bowel sounds Skin General skin exam: no rashes or lesions noted Neuro General: patient oriented x3 and no focal motor deficits Speech: No Abnormal speech present Extrem General: No cyanosis and Yes edema Psych Appearance: grossly normal Assessment & Plan Assessment & Plan (1) COPD (chronic obstructive pulmonary disease): Code(s): J44.9 - Chronic obstructive pulmonary disease, unspecified Category: Medical Qualifiers: COPD type: chronic bronchitis Chronic bronchitis type: simple Qualified Code(s): J41.0 - Simple chronic bronchitis (2) Lung cancer: Onset Date: ~2021 Comment: (stage 1A Adenocarcinoma RUL s/p lobectomy 11/2021) Code(s): C34.90 - Malignant neoplasm of unspecified part of unspecified bronchus or lung Category: Medical Qualifiers: Laterality: right Lung location: unspecified part of lung Qualified Code(s): C34.91 - Malignant neoplasm of unspecified part of right bronchus or lung (3) Lower extremity edema: Code(s): R60.0 - Localized edema Category: Medical Plan continue Anoro Fluticasone nasal spray Zyrtec short-acting beta agonist as needed CT chest now and yearly lasix x 3 days Low Na diet F/U 6 months Orders: Orders CT chest wo IV con Today C34.90 - Malignant neoplasm of unspecified part of unspecified bronchus or lung Medications: New furosemide (Lasix) 20 mg PO DAILY 3 tabs 0RF Changed From umeclidinium-vilanterol 62.5-25 mcg/actuation (Anoro Ellipta) 1 inh inhalation DAILY 60 ea 4RF J44.9 - Chronic obstructive pulmonary disease, unspecified To umeclidinium-vilanterol 62.5-25 mcg/actuation (Anoro Ellipta) 1 inh inhalation DAILY 60 ea 11RF 30 days J44.9 - Chronic obstructive pulmonary disease, unspecified Refilled albuterol sulfate 90 mcg/actuation (ProAir HFA) 2 puffs inhalation Q6H PRN 8.5 grams 11RF Shortness Of Breath Coding Level of Care Code Est Pt Level 4 (66876) Complex EM visit Add On G2211 Diagnoses Simple chronic bronchitis J41.0 COPD type: chronic bronchitis Chronic bronchitis type: simple Malignant neoplasm of right lung, unspecified part of lung C34.91 Laterality: right Lung location: unspecified part of lung Lower extremity edema R60.0 Time Spent (min) 16
[2024-11-20 14:30] VITALS: BP 170/70; PULSE 86; O2SAT 94; BMI 38.5
--- OUTSIDE RECORDS SUMMARY | 2024-11-20 15:28 | XMS_ITS | Clinical Summary ---
Author Organization [facility] Address [address] [place] [phone] Phone Care Team Providers Care Tomato Pulper Operator Name Role Phone Renea King MD Primary Care Provider [phone] Surgical History Surgery Date Site/Laterality Comments CHOLECYSTECTOMY PROCEDURE: HISTORICAL CHOLECYSTECTOMY HYSTERECTOMY N/A PROCEDURE: HISTORICAL HYSTERECTOMY NEPHRECTOMY Right PROCEDURE: HISTORICAL NEPHRECTOMY OTHER SURGICAL HISTORY 11/11/2021 Right PROCEDURE: [facility] BRONCHOSCOPY W/CPTR-ASST IMAGE-GUIDED NAVIGATION OTHER SURGICAL HISTORY 11/11/2021 Right PROCEDURE: [place] THORACOSCOPY W/DX WEDGE RESEXN ANATO LUNG RESEXN; COMMENT: right upper Medical History Medical History Date Comments Allergic rhinitis due to pollen DX:Allergic rhinitis due to pollen Arrhythmia DX:Arrhythmia COPD (chronic obstructive pu lmonary disease) ([facility] V24, [facility] V28) DX:COPD (chronic o bstructive pulmonary disease) ([facility]) Depression DX:Depression Elevated cholesterol DX:Elevated cholesterol GERD (gastroesophageal reflux disease) DX:GERD (gastroesophageal reflux disease) HTN (hypertension) DX:HTN (hyper tension) Hx of renal calculi DX:Hx of chai al calculi Pre-diabetes DX:Pre-diabetes Smoking addiction DX:Smoking add iction Tubular adenoma of colon DX:Tubu lar adenoma of colon Lung cancer ([facility] V24, [facility] V28) 12/03/2021 DX:Lung cancer ([facility]) Social History Tobacco Use Types Packs/Day Years [...] 02/02/2024 2:03 PM EDT Plan of Treatment Upcoming Encounters Date Type Department Care Team (Late st Contact Info) Description 01/09/2025 11:30 AM EDT Appointment [facility] CT Scan [address] [place] [phone] Health Maintenance Due Date Last Done Comments [...] Lung Cancer Screening (Low Dose CT) 04/11/2022 Medicare Annual Wellness Visit 04/11/2022 Osteoporosis Screening (Bone Density Screening) 04/11/2022 Social Influencers of Health Screening 04/11/2022 Hypertension/CHF/CAD Annual BMP Blood Test 04/22/2022 Influenza Vaccine (#1) 2025 HIB Vaccines Aged Out No longer [...] on patient's age to complete this topic Insurance [employer] MEDICARE MEDICAID - [place] MEDICARE Advance Directives Documents on File Type Date Recorded Patient Brand Marketing Specialist Expl anation Health Care Decision (hx) 11/19/2021 AD CHOW DIRECTIVE Health Care Decision (hx) 11/19/2021 AD CHOW DIRECTIVE Health Care Decision (hx) 11/19/2021 AD CHOW DIRECTIVE Health Care Decision (hx) 11/19/2021 [facility] Care Teams Tomato Pulper Operator Relationship Specialty Start Date End Date Renea King MD [address] [place] [phone] PCP - General 10/09/21
--- OUTSIDE RECORDS SUMMARY | 2024-11-20 15:28 | XMS_ITS ---
Author Name Radford GROUP PRODUCT MANAGER,INSTRUMENT ROOM TECHNICIAN,FN P,BALANCING MACHINE OPERATOR, Jazlyn Address [address] [place] [address] Phone [phone] [facility] Care Team Providers Care Loading Shovel Oiler Name Role Phone Jazlyn Radford Unavailable [phone] Fred Garcia Unavailable [phone] Reason for Referral Not Available Allergies, adverse [...] List Problem Status Onset Date Resolved Date Synopsis Hyperlipidemia Active 2022-04-13 N/A on a stati n recommend weight loss and low fat diet Vitamin D deficiency Active 2022-04-13 N/A on s upplementscontinue Anxiety Active 2022-04-13 N/A Stablehydroxyz inereports anxiety is well controlled, no recent attacksplease call if worsening symptoms Secondary pulmonary arterial hypertension Active 2022-05-14 N/A Stablelosa rtandoes not measure BP dailyeducated on measuring BP daily low na dietexercise as tolerated History of primary malignant neoplasm of right lung Active 2022-04-07 N/A Stable lobectomy for lung CA Treatment: denies chemotherapy or radiation per patient Continue monitoring and f/u care with PCP and oncology. Exudative age-related macular degeneration, left eye, stage unspecified Active 2023-12-30 N/A StableMonitor fo r acute changes in vision and continue f/u with PCP and ophthalmology. f/u with injections f/u ophthalmology 09/24/24 Gout Active 2022-05-14 N/A hx of gout had red meat yesterday and woke up with left great toe pain todaytakes ibuprofen for pain and applies ice 06/23/2022 great toe pain has returned was treated Constipation Active 2022-04-13 N/A on daily sto ol softeners without severe abdominal pain, no hx of bowel obstruction encourage drinking more fluid, fiber intake and regular physical activitycontinue to take stool softener07/23/24last BM yesterday Insomnia Active 2022-04-13 N/A on trazadonere commend sleep hygiene sleeping well controlled with trazodone COPD with AsthmaHistory of respiratory failure Active 2022-04-13 N/A Stableon alb uterol as needed, flovent puffs and spiriva, former smokercontrolled without any acute exacerbationsrecommend close follow up with PCP, continue to use inhaler as needed and avoiding asthma exacerbation known triggersf/u PULM q 2 years Other problems related to medical facilities and other health care Active 2023-12-30 N/A COPD CO NTINGENCY PLANLast updated: 07/23/2024Member to call for the following symptoms: Increased cough / WheezingPlanned intervention: Increase use of albuterol inhaler to q2h PRN cough, breathlessness/ Prednisone 50mg PO daily x 5 days/ Doxycycline 100mg BID x 7 days Depression, major, in partial remission Active 2022-04-13 N/A Stableamitript yline and trazodone discussed therapy referralmember declines therapyhas good support systems at home Morbid (severe) obesity due to excess caloriesBody mass index [BMI] 38.0-38.9, adult Active 2023-12-30 N/A StableBMI: 35 +H TN, +HLDietary interventions and continue with PCP. Encounters Encounters Type Facility Date of Service Diagnosis/Co mplaint New patient,40-59min; chronic exacerbation, 2 stable chronic or 1 acute illness add add modifier 95 for video (do not use for phone, instead use 40359-74) [facility] Unspecified asthma, uncomplicatedInsomnia, unspecifiedHyperlipidemia, unspecifiedVitamin D deficiency, unspecifiedAnxiety disorder, unspecifiedDepression, unspecifiedConstipation, unspecifiedOther specified postprocedural states New patient,40-59min; chronic exacerbation, 2 stable chronic or 1 acute illness add add modifier 95 for video (do not use for phone, instead use 33691-93) [facility]07[place] New patient,40-59min; chronic exacerbation, 2 stable chronic or 1 acute illness add add modifier 95 for video (do not use for phone, instead use 08340-19) [facility] 04[place]07/[place] New patient,40-59min; chronic exacerbation, 2 stable chronic or 1 acute illness add add modifier 95 for video (do not use for phone, instead use 30847-95) [facility]07[place] New patient,40-59min; chronic exacerbation, 2 stable chronic or 1 acute illness add add modifier 95 for video (do not use for phone, instead use 32934-56) [facility] 04[place]07/[place] New patient,40-59min; chronic exacerbation, 2 stable chronic or 1 acute illness add add modifier 95 for video (do not use for phone, instead use 34061-51) [facility]07/[place] New patient,40-59min; chronic exacerbation, 2 stable chronic or 1 acute illness add add modifier 95 for video (do not use for phone, instead use 48416-83) [facility]07[place] New patient,40-59min; chronic exacerbation, 2 stable chronic or 1 acute illness add add modifier 95 for video (do not use for phone, instead use 67321-44) [facility] ([place] 04[place]07[place]22 New patient,40-59min; chronic exacerbation, 2 stable chronic or 1 acute illness add add modifier 95 for video (do not use for phone, instead use 90880-72) [facility]07/[place] Estab. patient 30-39min; chronic exacerbation, 2 stable chronic or 1 acute illness add add modifier 95 for video, (do not use for phone, instead use 89293-85) [facility] 05[place]14/2022 Other specified postprocedur al statesUnspecified asthma, uncomplicatedInsomnia, unspecifiedHyperlipidemia, unspecifiedVitamin D deficiency, unspecifiedAnxiety disorder, unspecifiedMajor depressive disorder, single episode, in partial remissionConstipation, unspecifiedEssential (primary) hypertensionGout, unspecified Estab. patient 30-39min; chronic exacerbation, 2 stable chronic or 1 acute illness add add modifier 95 for video, (do not use for phone, instead use 67534-65) [facility] 05[place]/20[place] Estab. patient 30-39min; chronic exacerbation, 2 stable chronic or 1 acute illness add add modifier 95 for video, (do not use for phone, instead use 68817-45) [facility] 05[place]/20[place] Estab. patient 30-39min; chronic exacerbation, 2 stable chronic or 1 acute illness add add modifier 95 for video, (do not use for phone, instead use 64703-87) [facility] 05[place]/20[place] Estab. patient 30-39min; chronic exacerbation, 2 stable chronic or 1 acute illness add add modifier 95 for video, (do not use for phone, instead use 14483-94) [facility] 05/14/20[place] Estab. patient 30-39min; chronic exacerbation, 2 stable chronic or 1 acute illness add add modifier 95 for video, (do not use for phone, instead use 34917-90) [facility] Estab. patient 30-39min; chronic exacerbation, 2 stable chronic or 1 acute illness add add modifier 95 for video, (do not use for phone, instead use 00919-16) [facility] 05/14/2022 No Data Available [facility] 06/23/2022 Other specified postprocedur al statesUnspecified asthma, uncomplicatedInsomnia, unspecifiedHyperlipidemia, unspecifiedVitamin D deficiency, unspecifiedAnxiety disorder, unspecifiedMajor depressive disorder, single episode, in partial remissionConstipation, unspecifiedEssential (primary) hypertensionGout, unspecified No Data Available [facility]/20[place] No Data Available [facility] 06/23/2022 Unlisted special service; to be used for medical record reviews and reporting CPTII codes (1111F, etc) [facility] ([place] 03/11/2023 Other specified health statu s Unlisted special service; to be used for medical record reviews and reporting CPTII codes (1111F, etc) [facility] ([place] 03/11/2023 Unlisted special service; to be used for medical record reviews and reporting CPTII codes (1111F, etc) [facility] ([place] 03/11/2023 Estab. patient 30-39min; chronic exacerbation, 2 stable chronic or 1 acute illness add add modifier 95 for video, (do not use for phone, instead use 18690-86) [facility] ([place] 12/30/2023 Malignant neoplasm of upper lobe, right [...] (do not use for phone, instead use 61798-36) [facility] ([place] 12/30/2023 Estab. patient 30-39min; chronic exacerbation, 2 stable chronic or 1 acute illness add add modifier 95 for video, (do not use for phone, instead use 30250-11) [facility] Estab. patient 30-39min; chronic exacerbation, 2 stable chronic or 1 acute illness add add modifier 95 for video, (do not use for phone, instead use 97008-87) [facility] Estab. patient 30-39min; chronic exacerbation, 2 stable chronic or 1 acute illness add add modifier 95 for video, (do not use for phone, instead use 26709-05) [facility] Estab. patient 30-39min; chronic exacerbation, 2 stable chronic or 1 acute illness add add modifier 95 for video, (do not use for phone, instead use 55810-17) [facility] Estab. patient 30-39min; chronic exacerbation, 2 stable chronic or 1 acute illness add add modifier 95 for video, (do not use for phone, instead use 90616-35) [facility] Estab. patient 30-39min; chronic exacerbation, 2 stable chronic or 1 acute illness add add modifier 95 for video, (do not use for phone, instead use 93550-89) [facility] Estab. patient 30-39min; chronic exacerbation, 2 stable chronic or 1 acute illness add add modifier 95 for video, (do not use for phone, instead use 43374-93) [facility] Estab. patient 30-39min; chronic exacerbation, 2 stable chronic or 1 acute illness add add modifier 95 for video, (do not use for phone, instead use 76980-70) [facility] Estab. patient 20-29min; 1 stable chronic or 2 minor; add add modifier 95 for video, modifier 93 for phone [facility]2024 Other specified chronic obstructive pulmonary diseaseInsomnia, unspecifiedHyperlipidemia, unspecifiedVitamin D deficiency, unspecifiedAnxiety disorder, unspecifiedMajor depressive disorder, single episode, in partial remissionConstipation, unspecifiedSecondary pulmonary arterial hypertensionGout, unspecifiedMorbid (severe) obesity due to excess caloriesExudative age-related macular degeneration, left eye, stage unspecifiedPersonal history of other malignant neoplasm of bronchus and lungOther problems related to medical facilities and other health carePersonal history of other diseases of the respiratory system Estab. patient 20-29min; 1 stable chronic or 2 minor; add add modifier 95 for video, modifier 93 for phone [facility] Estab. patient 20-29min; 1 stable chronic or 2 minor; add add modifier 95 for video, modifier 93 for phone [facility] [place] Estab. patient 20-29min; 1 stable chronic or 2 minor; add add modifier 95 for video, modifier 93 for phone [facility] 07[place]23/20[place] Estab. patient 20-29min; 1 stable chronic or 2 minor; add add modifier 95 for video, modifier 93 for phone [facility] [place] Estab. patient 20-29min; 1 stable chronic or 2 minor; add add modifier 95 for video, modifier 93 for phone [facility] [place] Estab. patient 20-29min; 1 stable chronic or 2 minor; add add modifier 95 for video, modifier 93 for phone [facility] 07/23/20[place] Estab. patient 20-29min; 1 stable chronic or 2 minor; add add modifier 95 for video, modifier 93 for phone [facility] [place] Estab. patient 20-29min; 1 stable chronic or 2 minor; add add modifier 95 for video, modifier 93 for phone [facility] 07/23/2024 Vital Signs Date of Collection Vitals 2022-04-07 [...] - 70.0 mm[Hg]BP Systolic - 126.0 mm[Hg] 2024-07-23 09:17:15 Height - 157.48 cmWe ight - 94.8 kgBody Mass Index (BMI) - 38.23 kg/m2BP Diastolic - 68.0 mm[Hg]BP Systolic - 132.0 mm[Hg]Pain Scale - 7.0 {score} Social History Social History Social History Observation Description Effec tive Time Current Smoking Status Former smoker 2024-11-06 5 Sex Female History of Procedures Procedures Service Procedure code Service date Servicing provider Phone# New patient,40-59min; chronic exacerbation, 2 stable chronic or 1 acute illness add add modifier 95 for video (do not use for phone, instead use 90227-07) 95652 2022-04-07 No Data Available No Data Availa [...] (do not use for phone, instead use 08319-56) 83700 2022-05-14 No Data Available No Data Availa [...] No Data Eugenia ilable No Data Available 05173 2022-06-23 No Data Available No Data Available Medication List Documented (1159F) 1159F 2022-06-23 No Data Available No Data Eugenia ilable Pain Assessment - Pain Documented on a Pain Scale (1125F) 1125F 2022-06-23 No Data Available No Data Eugenia ilable Unlisted special service; to be used for medical record reviews and reporting CPTII codes (1111F, etc) 06939 2023-03-11 No Data Available No Data Availa ble SBP < 130 (3074F) 3074F 2023-03-11 No Data Available No Data Available DBP <80 (3078F) 3078F 2023-03-11 No Data Available No Data Available Estab. patient 30-39min; chronic exacerbation, 2 stable chronic or 1 acute illness add add modifier 95 for video, (do not use for phone, instead use 88661-71) 71708 2023-12-30 No Data Available No Data Availa [...] ble Advance care planning discussed and documented advance care plan or surrogate decision-maker was [...] No Data Available No Data Avail able Estab. patient 20-29min; 1 stable chronic or 2 minor; add add modifier 95 for video, modifier 93 for phone 03689 2024-07-23 No Data Available No Data Availa ble Medication List Documented (1159F) 1159F 2024-07-23 No Data Available No Data Eugenia ilable Medication Review by prescribing provider or pharmacist documented (1160F) 1160F 2024-07-23 No Data Available No Data Eugenia ilable Functional Status Assessed (1170F) 1170F 2024-07-23 No Data Available No Data Avail able Advance Care Directive Advance care planning discussion documented in the medical record (1158F) 1158F 2024-07-23 No Data Available No Data Availa ble Advance care planning discussed and documented advance care plan or surrogate decision-maker was documented in the medical record. (1123F) 1123F 2024-07-23 No Data Available No Data Availa ble Pain Assessment - Pain Documented on a Pain Scale (1125F) 1125F 2024-07-23 No Data Available No Data Eugenia ilable SBP 130-139 (3075F) 3075F 2024-07-23 No Data Availabl e No Data Available DBP <80 (3078F) 3078F 2024-07-23 No Data Available No Data Available Functional Status Functional Category Effective Dates ADL Eating: Independent; Amb ulation: Independent; Dressing: [...] week: 2022-05-14 ambulates with cane 2022-05-14 has educational advisor at home 2022-05-14 Mental Status Status Date [...] age-related macular degeneration, left eye, stage unspecified 2024-07-23 09:17:15 COPD with AsthmaHist ory of respiratory failureOther problems related to medical facilities and other health careHistory of primary malignant neoplasm of right lungInsomniaHyperlipidemiaVitamin D deficiencyAnxietyConstipationSecondary pulmonary arterial hypertensionGoutMorbid (severe) obesity due to excess caloriesExudative age-related macular degeneration, left eye, stage unspecifiedDepression, major, in partial remission Plan of Care Date of Service Plans [...] Documented (1125F)Continue to see PCP. Follow-up with [facility] as [...] modifier 95)Continue to see PCP. Follow-up with [facility] as needed for any acute or disease [...] record (1158F)Advance care planning discussed and documented advance care plan or surrogate decision-maker was documented in the medical record. (1123F)SBP < 130 (3074F)DBP <80 (3078F)Continue to see PCP. Follow-up with [facility] as needed for any acute or disease education needs that may arise.COPD CONTINGENCY PLANCOPD Member to call for the following symptoms: Albuterol not working/ Chest pain / Exertional dyspnea/ Fatigue/ Increased cough / WheezingPlanned intervention: Practice pursed lip breathing/ Practice controlled coughing/ Confirm appropriate inhaler usagelobectomy for lung CA in novemberno chemotherapy or radiation per patient has follow up appointment in MayStableon albuterol as needed, flovent puffs and spiriva, [...] and continue f/u with PCP and ophthalmology. 2024-07-23 09:17:15 Functional Status As sessed (1170F)Advance Care Directive Advance care planning discussion documented in the medical record (1158F)Advance care planning discussed and documented advance care plan or surrogate decision-maker was documented in the medical record. (1123F)SBPDBPEstab. patient 20-29min; 1 stable chronic or 2 minor; add add modifier 95 for video, modifier 93 for phoneMedication List Documented (1159F)Medication Review by prescribing provider or pharmacist documented (1160F)Pain Assessment - NO pain present (1126F)Continue to see PCP. Follow-up with [facility] as needed for any acute or disease education needs that may arise.Stableon albuterol as needed, flovent puffs and spiriva, former smokercontrolled without any acute exacerbationsrecommend close follow up with PCP, continue to use inhaler as needed and avoiding asthma exacerbation known triggersf/u PULM q 2 yearsCOPD CONTINGENCY PLANLast updated: 07/23/2024Member to call for the following symptoms: Increased cough / WheezingPlanned intervention: Increase use of albuterol inhaler to q2h PRN cough, breathlessness/ Prednisone 50mg PO daily x 5 days/ Doxycycline 100mg BID x 7 daysStable lobectomy for lung CA Treatment: denies chemotherapy or radiation per patient Continue monitoring and f/u care with PCP and oncology.on trazadonerecommend sleep hygiene sleeping well controlled with trazodoneon a statin recommend weight loss and low fat dieton supplementscontinueStablehydroxyzinereports anxiety is well controlled, no recent attacksplease call if worsening symptomson daily stool softeners without severe abdominal pain, no hx of bowel obstruction encourage drinking more fluid, fiber intake and regular physical activitycontinue to take stool softener07/23/24last BM yesterdayStablelosartandoes not measure BP dailyeducated on measuring BP daily low na dietexercise as toleratedhx of gout had red meat yesterday and woke up with left great toe pain todaytakes ibuprofen for pain and applies ice 06/23/2022 great toe pain has returned was treatedStableBMI: 35 +HTN, +HLDietary interventions and continue with PCP.StableMonitor for acute changes in vision and continue f/u with PCP and ophthalmology. f/u with injections f/u ophthalmology 09/24/24Stableamitriptyline and trazodone discussed therapy referralmember declines therapyhas good support systems at home Goals Date Goal 2022-04-07 Remember to take med ications as prescribed 2022-04-07 Call me if you have any questions or concerns 2022-05-14 monitor BP daily, josh enriquez BP log to discuss next visit 2022-05-14 continue medications as prescribed 2022-05-14 take OTC NSAID x 1-2 days as indicated for pain, monitor BP, will sent medrol dose pack for Gout episode 2022-05-14 advised to discuss m anagement with PCP and uric acid level 2022-05-14 aware of diet to breanna id gout flare 2022-06-23 continue medications as prescribed 2022-06-23 call pcp for appt an d gout management 2022-06-23 script for medrol se nt to pharmacy 2023-12-30 Remember to adhere t o dietary interventions and exercise as tolerable. 2023-12-30 Contact us if develo ping SOB, falls, worsening anxiety or depression, pain, hypertensive episode, or health-related concern. 2023-12-30 Continue taking medi cations as prescribed and f/u care and monitoring with PCP every 3-6 months. Health Concerns Date Concern 2024-07-23 Visit completed estuardo ta audio and video. Patient agreed to visit via telehealth. Today, patient has chief complaint of: follow up care and comprehensive review.Reviewed Allergies, Medications, Active Medical conditions, past medical/surgical history, Social history. 2024-07-23 Most recent hospital stay(s) or ER visit(s) and precipitating factors: none in the last month 2024-07-23 Open HEDIS Measure r galdino: NO HEDIS MEASURES POPULATED IN [place] FOR 20242024-07-23 does talk to pcp, do es not want therapist.
--- OUTSIDE RECORDS SUMMARY | 2024-11-20 15:28 | XMS_ITS | Encounter Summary ---
Author Organization [employer] Address [address] [place] [address] [address] [place] [address] Care Team Providers Care Platform Mill Supervisor Name Role Phone Renea King MD Primary Care Provider [phone] Shen Blakely PharmD Unavailable [phone] Encounter Details Date Type Department Care Team (Late st Contact Info) Description 05/14/2022 Orders Only [facility] MEDICINE [address] [place] [address] [phone] Joanne Long, RN [address] [place] [address] Social History Tobacco Use Types Packs/Day Years [...] Department Care Team (Late Contact Info) Description 11/26/2024 11:00 AM EDT Clinical Support [facility] [address] [place], [place] [phone] 01/25/2025 10:00 AM EDT Medication Management [facility] [address] [place], [place] [phone] Shen Blakely, PharmD [address] [place] [address] 03/29/2025 1:00 PM EST Office Visit [facility] OPTOMETRY [address] [place] [id number] Angela Stinson, OD [address] [place] [address] documented as of this encounter Procedures Procedure Name Priority Date/Time Associated Diagnosis Comments BI MAMMOGRAM SCREENING TOMOSYNTHESIS BILATERAL Routine 06/08/2022 10:50 AM EST documented in this encounter Results * BI Mammogram Screening Tomosynthesis Bilateral (06/08/2022 10:50 AM EST) Anatomical Region Laterality Modality Breast Bilateral Mammography 06/08/2022 10:5 0 AM EST Narrative 06/09/2022 2:55 PM EST [facility] [address] [place] [address] Mammography Report Signed Patient: Kim Hood MR#: [id number] : 1945 Acct:[id number] Age/Sex: 76 / F ADM Date: 06/08/22 Loc: HO.MAMMO Attending Dr: Renea King MD Ordering Physician: Renea King MD Results: 2Benign F indings Date of Service: 06/08/22 Follow Up: 1 Year From [facility] Mammogram Procedure(s): MM tomosynthesis screening BI Accession Number(s): [id number] cc: Renea King MD EXAMINATION: MM SCREENING [...] in OV> 06/09/22 1452 DD/ 1050 TD/TT: [employer] Data Entry: ALLEN Procedure Note Donotuseinterpreter, Image - 06/09/2022 [facility] [address] [place] [address] Mammography Report Signed Patient: Paris Hood#: [id number] : 5Acct:[id number] Age/Sex: 76 / FADM Date: 06/08/22 Loc: JALEN Attending Dr: Renea King MD Ordering Physician: Renea King MDResults: 2Benign F indings Date of Service: 06/08/22Follow Up: 1 Year From Orig inal Mammogram Procedure(s): MM tomosynthesis screening BI Accession Number(s): [id number] cc: Renea King MD EXAMINATION: MM SCREENING [...] in OV> 06/09/22 1452 DD/ 1050 TD/TT: [employer]elance Data Entry: [facility]FF[facility] External Provider IMG BI PROCEDURES Final Result documented in this encounter Visit Diagnoses Not on filedocumented in this encounter Care Teams Platform Mill Supervisor Relationship Specialty Start Date End Date Renea King MD [address] [place] [address] PCP - General Family Medicine 05/09/18 Shen Blakely, ChristopherD [address] [place] [address] Pharmacist Internal Medicine 03/11/23 documented as of this encounter
== END 2024-11-20 14:51 | disposition home or self-care (01) ==
LOC: HO.HPS 14:13
PROVIDERS: PCP Family Medicine; Visit Provider Hospitalist
DX: J41.0 Simple chronic bronchitis (principal); C34.91 Malignant neoplasm of unspecified part of right bronchus or lung; R60.0 Localized edema
CPT/HCPCS: 99214; G2211

== ENCOUNTER → 2024-11-20 14:12 | Outpatient (BNVA) | payer OTHER, SELFPAY | PROVIDERS: PCP Family Medicine; Visit Provider Hospitalist | DX: J41.0 Simple chronic bronchitis (principal); C34.91 Malignant neoplasm of unspecified part of right bronchus or lung; R60.0 Localized edema; F17.200 Nicotine dependence, unspecified, uncomplicated; Z79.899 Other long term (current) drug therapy | CPT/HCPCS: 99212 ==

== ENCOUNTER 2024-11-22 09:28 | Outpatient (REF) | payer OTHER, SELFPAY ==
--- OUTSIDE RECORDS SUMMARY | 2024-11-22 09:45 | XMS_ITS | Encounter Summary ---
Author Organization [employer] Address [address] [place] [address] [address] [place] [address] Care Team Providers Care Supervisor Pumping Station Name Role Phone Renea King MD Primary Care Provider [phone] Shen Blakely PharmD Unavailable [phone] Encounter Details Date Type Department Care Team (Late st Contact Info) Description 05/14/2022 Orders Only [facility] [address] [place] [address] [phone] Joanne Long, RN [address] [place] [address] Social History Tobacco Use Types Packs/Day Years [...] Description 11/26/2024 11:00 AM EDT Clinical Support [facility] [address] [place], [place] [phone] 01/25/2025 10:00 AM EDT Medication Management [facility] [address] [place], [place] [phone] Shen Blakely, PharmD [address] [place] [address] 03/29/2025 1:00 PM EST Office Visit [facility] [address] [place] [phone] Angela Stinson, OD [address] [place] [address] documented as of this encounter Procedures Procedure Name Priority Date/Time Associated Diagnosis Comments BI MAMMOGRAM SCREENING TOMOSYNTHESIS BILATERAL Routine 06/08/2022 10:50 AM EST documented in this encounter Results * BI Mammogram Screening Tomosynthesis Bilateral (06/08/2022 10:50 AM EST) Anatomical Region Laterality Modality Breast Bilateral Mammography 06/08/2022 10:5 0 AM EST Narrative 06/09/2022 2:55 PM EST [facility] [address] [place] [address] Mammography Report Signed Patient: Kim Hood MR#: [id number] : 1945 Acct:[id number] Age/Sex: 76 / F ADM Date: 06/08/22 Loc: HO.MAMMO Attending Dr: Renea King MD Ordering Physician: Renea King MD Results: 2Benign F indings Date of Service: 06/08/22 Follow Up: 1 Year From [facility] Mammogram Procedure(s): MM tomosynthesis screening BI Accession Number(s): [id number] cc: Renea King MD EXAMINATION: MM SCREENING [...] in OV> 06/09/22 1452 DD/ 1050 TD/TT: Addiction Counselor: ALLEN Procedure Note Donotuseinterpreter, Image - 06/09/2022 [facility] [address] [place] [address] Mammography Report Signed Patient: Paris Hood#: [id number] : 5Acct:[id number] Age/Sex: 76 / FADM Date: 06/08/22 Loc: JALEN Attending Dr: Renea King MD Ordering Physician: Renea King MDResults: 2Benign F indings Date of Service: 06/08/22Follow Up: 1 Year From Orig inal Mammogram Procedure(s): MM tomosynthesis screening BI Accession Number(s): [id number] cc: Renea King MD EXAMINATION: MM SCREENING [...] in OV> 06/09/22 1452 DD/ 1050 TD/TT: Addiction Counselor: TIFFANY [facility] External Provider IMG BI PROCEDURES Final Result documented in this encounter Visit Diagnoses Not on filedocumented in this encounter Care Teams Supervisor Pumping Station Relationship Specialty Start Date End Date Renea King MD [address] [place] [address] PCP - General Family Medicine 05/09/18 Shen Blakely, ChristopherD [address] [place] [address] Pharmacist Internal Medicine 03/11/23 documented as of this encounter
--- OUTSIDE RECORDS SUMMARY | 2024-11-22 09:45 | XMS_ITS ---
Author Name Radford PLATE MILL HAND,ELECTRIC BATH ATTENDANT,FN P,SUMMER SESSIONS DIRECTOR, Jazlyn Address [address] [place] [address] Phone [phone] [facility] Care Team Providers Care Threading Machine Tender Name Role Phone Jazlyn Radford Unavailable [phone] Fred Garcia Unavailable [phone] Reason for Referral Not Available Allergies, adverse [...] (do not use for phone, instead use 87365-70) [facility] [place]20[place] Unspecified asthma, uncomplicatedInsomnia, unspecifiedHyperlipidemia, unspecifiedVitamin D deficiency, unspecifiedAnxiety disorder, unspecifiedDepression, unspecifiedConstipation, unspecifiedOther specified postprocedural states New patient,40-59min; chronic exacerbation, 2 stable chronic or 1 acute illness add add modifier 95 for video (do not use for phone, instead use 86877-86) [facility] [place] New patient,40-59min; chronic exacerbation, 2 stable chronic or 1 acute illness add add modifier 95 for video (do not use for phone, instead use 40748-38) [facility] [place]20[place] New patient,40-59min; chronic exacerbation, 2 stable chronic or 1 acute illness add add modifier 95 for video (do not use for phone, instead use 56873-67) [facility] [place]20[place] New patient,40-59min; chronic exacerbation, 2 stable chronic or 1 acute illness add add modifier 95 for video (do not use for phone, instead use 74050-97) [facility] [place]20[place] New patient,40-59min; chronic exacerbation, 2 stable chronic or 1 acute illness add add modifier 95 for video (do not use for phone, instead use 51028-39) [facility] [place]20[place] New patient,40-59min; chronic exacerbation, 2 stable chronic or 1 acute illness add add modifier 95 for video (do not use for phone, instead use 21407-37) [facility] [place]20[place] New patient,40-59min; chronic exacerbation, 2 stable chronic or 1 acute illness add add modifier 95 for video (do not use for phone, instead use 55807-38) [facility] [place] New patient,40-59min; chronic exacerbation, 2 stable chronic or 1 acute illness add add modifier 95 for video (do not use for phone, instead use 70797-68) [facility] [place]20[place] Estab. patient 30-39min; chronic exacerbation, 2 stable chronic or 1 acute illness add add modifier 95 for video, (do not use for phone, instead use 69940-91) [facility] [place] 05[place]/2022 Other specified postprocedur al statesUnspecified asthma, uncomplicatedInsomnia, unspecifiedHyperlipidemia, unspecifiedVitamin D deficiency, unspecifiedAnxiety disorder, unspecifiedMajor depressive disorder, single episode, in partial remissionConstipation, unspecifiedEssential (primary) hypertensionGout, unspecified Estab. patient 30-39min; chronic exacerbation, 2 stable chronic or 1 acute illness add add modifier 95 for video, (do not use for phone, instead use 40882-86) [facility] [place]20[place] Estab. patient 30-39min; chronic exacerbation, 2 stable chronic or 1 acute illness add add modifier 95 for video, (do not use for phone, instead use 44674-24) [facility] [place] 05[place]/20[place] Estab. patient 30-39min; chronic exacerbation, 2 stable chronic or 1 acute illness add add modifier 95 for video, (do not use for phone, instead use 10209-60) [facility] [place]/20[place] Estab. patient 30-39min; chronic exacerbation, 2 stable chronic or 1 acute illness add add modifier 95 for video, (do not use for phone, instead use 85348-85) [facility] [place] 05[place]/20[place] Estab. patient 30-39min; chronic exacerbation, 2 stable chronic or 1 acute illness add add modifier 95 for video, (do not use for phone, instead use 54043-62) [facility] [place]20[place] Estab. patient 30-39min; chronic exacerbation, 2 stable chronic or 1 acute illness add add modifier 95 for video, (do not use for phone, instead use 46041-91) [facility] [place] 05/14/[address] [facility] [place] 06/23/2022 Other specified postprocedur al statesUnspecified asthma, uncomplicatedInsomnia, unspecifiedHyperlipidemia, unspecifiedVitamin D deficiency, unspecifiedAnxiety disorder, unspecifiedMajor depressive disorder, single episode, in partial remissionConstipation, unspecifiedEssential (primary) hypertensionGout, unspecified No Data Available [facility] [place] 06/[place]/[address] [facility] [place]2022 Unlisted special service; to be used for medical record reviews and reporting CPTII codes (1111F, etc) [facility] [place] 03/11/2023 Other specified health statu s Unlisted special service; to be used for medical record reviews and reporting CPTII codes (1111F, etc) [facility] [place] 03/[place]/2023 Unlisted special service; to be used for medical record reviews and reporting CPTII codes (1111F, etc) [facility] [place] 03[place]11/2023 Estab. patient 30-39min; chronic exacerbation, 2 stable chronic or 1 acute illness add add modifier 95 for video, (do not use for phone, instead use 80330-77) [facility] [place] 12[place]30/2023 Malignant neoplasm of upper lobe, right [...] (do not use for phone, instead use 73698-85) [facility] [place] 12[place]/2023 Estab. patient 30-39min; chronic exacerbation, 2 stable chronic or 1 acute illness add add modifier 95 for video, (do not use for phone, instead use 87140-45) [facility]20[place] Estab. patient 30-39min; chronic exacerbation, 2 stable chronic or 1 acute illness add add modifier 95 for video, (do not use for phone, instead use 91847-28) [facility] Estab. patient 30-39min; chronic exacerbation, 2 stable chronic or 1 acute illness add add modifier 95 for video, (do not use for phone, instead use 98161-85) [facility]20[place] Estab. patient 30-39min; chronic exacerbation, 2 stable chronic or 1 acute illness add add modifier 95 for video, (do not use for phone, instead use 84407-31) [facility] Estab. patient 30-39min; chronic exacerbation, 2 stable chronic or 1 acute illness add add modifier 95 for video, (do not use for phone, instead use 84233-93) [facility]20[place] Estab. patient 30-39min; chronic exacerbation, 2 stable chronic or 1 acute illness add add modifier 95 for video, (do not use for phone, instead use 64028-01) [facility] Estab. patient 30-39min; chronic exacerbation, 2 stable chronic or 1 acute illness add add modifier 95 for video, (do not use for phone, instead use 31286-50) [facility]20[place] Estab. patient 30-39min; chronic exacerbation, 2 stable chronic or 1 acute illness add add modifier 95 for video, (do not use for phone, instead use 18825-13) [facility] Estab. patient 20-29min; 1 stable chronic or 2 minor; add add modifier 95 for video, modifier [address] [facility] 07[place]2024 Other specified chronic obstructive [...] 95 for video, modifier 93 for phone [facility] Estab. patient 20-29min; 1 stable chronic or 2 minor; add add modifier 95 for video, modifier 93 for phone [facility] Estab. patient 20-29min; 1 stable chronic or 2 minor; add add modifier 95 for video, modifier 93 for phone [facility] Estab. patient 20-29min; 1 stable chronic or 2 minor; add add modifier 95 for video, modifier 93 for phone [facility] 07[place]20[place] Estab. patient 20-29min; 1 stable chronic or 2 minor; add add modifier 95 for video, modifier 93 for phone [facility] [place] 07/23/2024 Estab. patient 20-29min; 1 stable chronic or 2 minor; add add modifier 95 for video, modifier 93 for phone [facility] 07[place]23/20[place] Estab. patient 20-29min; 1 stable chronic or 2 minor; add add modifier 95 for video, modifier 93 for phone [facility] [place] 07/23/2024 Estab. patient 20-29min; 1 stable chronic or 2 minor; add add modifier 95 for video, modifier 93 for phone [facility] 07/23/2024 Vital Signs Date [...] Time Current Smoking Status Former smoker 2024-11-06 7 Sex Female History of Procedures Procedures Service Procedure code Service date Servicing provider Phone# New patient,40-59min; chronic exacerbation, 2 stable chronic or 1 acute illness add add modifier 95 for video (do not use for phone, instead use 69401-75) 62575 2022-04-07 No Data Available No Data Availa [...] (do not use for phone, instead use 54355-93) 25354 2022-05-14 No Data Available No Data Availa [...] No Data Eugenia ilable No Data Available 74413 2022-06-23 No Data Available No Data Available Medication List Documented (1159F) 1159F 2022-06-23 No Data Available No Data Eugenia ilable Pain Assessment - Pain Documented on a Pain Scale (1125F) 1125F 2022-06-23 No Data Available No Data Eugenia ilable Unlisted special service; to be used for medical record reviews and reporting CPTII codes (1111F, etc) 23716 2023-03-11 No Data Available No Data Availa ble SBP < 130 (3074F) 3074F 2023-03-11 No Data Available No Data Available DBP <80 (3078F) 3078F 2023-03-11 No Data Available No Data Available Estab. patient 30-39min; chronic exacerbation, 2 stable chronic or 1 acute illness add add modifier 95 for video, (do not use for phone, instead use 03368-23) 07818 2023-12-30 No Data Available No Data Availa [...] 95 for video, modifier 93 for phone 85192 2024-07-23 No Data Available No Data Availa [...] week: 2022-05-14 ambulates with cane 2022-05-14 has special projects coordinator at home 2022-05-14 Mental Status Status Date [...] modifier 95)Continue to see PCP. Follow-up with [facility] as needed for any acute or [...] acid level 2022-05-14 aware of diet to braenna id gout flare 2022-06-23 continue medications as [...]
--- OUTSIDE RECORDS SUMMARY | 2024-11-22 09:45 | XMS_ITS | Clinical Summary ---
Author Organization [facility] Address [address] [place] [phone] Phone Care Team Providers Care Application Developer Name Role Phone Renea King MD Primary Care Provider [phone] Surgical History Surgery Date Site/Laterality Comments CHOLECYSTECTOMY PROCEDURE: HISTORICAL CHOLECYSTECTOMY HYSTERECTOMY N/A PROCEDURE: HISTORICAL HYSTERECTOMY NEPHRECTOMY Right PROCEDURE: HISTORICAL NEPHRECTOMY OTHER SURGICAL HISTORY 11/11/2021 Right PROCEDURE: WI BRONCHOSCOPY W/CPTR-ASST IMAGE-GUIDED NAVIGATION OTHER SURGICAL HISTORY 11/11/2021 Right PROCEDURE: WI THORACOSCOPY W/DX WEDGE RESEXN ANATO LUNG RESEXN; COMMENT: right upper Medical History Medical History Date Comments Allergic rhinitis due to pollen DX:Allergic rhinitis due to pollen Arrhythmia DX:Arrhythmia COPD (chronic obstructive pu lmonary disease) ([facility] V24, [facility] V28) DX:COPD (chronic o bstructive pulmonary disease) ([facility]) Depression DX:Depression Elevated cholesterol DX:Elevated cholesterol GERD (gastroesophageal reflux disease) DX:GERD (gastroesophageal reflux disease) HTN (hypertension) DX:HTN (hyper tension) Hx of renal calculi DX:Hx of chai al calculi Pre-diabetes DX:Pre-diabetes Smoking addiction DX:Smoking add iction Tubular adenoma of colon DX:Tubu lar adenoma of colon Lung cancer ([facility] V24, [facility] V28) 12/03/2021 DX:Lung cancer ([facility]) Social History Tobacco Use Types Packs/Day Years [...] Info) Description 01/09/2025 11:30 AM EDT Appointment [facility] CT Scan [address] [place] [address] Health Maintenance Due Date Last [...] Documents on File Type Date Recorded Patient Performance Test Engineer Expl anation Health Care Decision (hx) 11/19/2021 AD CHOW DIRECTIVE Health Care Decision (hx) 11/19/2021 AD CHOW DIRECTIVE Health Care Decision (hx) 11/19/2021 AD CHOW DIRECTIVE Health Care Decision (hx) 11/19/2021 ALBERTO CHOW [facility] Care Teams Application Developer Relationship Specialty Start Date End Date Renea King MD [address] [place] [phone] PCP - General 10/09/21
[2024-11-22 11:12] LABS: MANUAL DIFF FLAG NO
[2024-11-22 11:16] LABS: Hematocrit 39.4 % (37.0-47.0); Hemoglobin 12.7 g/dl (12.0-16.0); Imm Gran Abs Auto 0.05 X10*3/uL (0.00-0.03); Imm Gran Pct Auto 0.4 % (0.0-0.4); Lymphocytes Absolute Auto 3.9 X10*3/uL (1.2-4.9); Mean Corpuscular HGB Conc 32.2 g/dl (31.0-35.0); Mean Corpuscular Hemoglobin 28.5 pg (27.0-33.0); Mean Corpuscular Volume 88.5 fL (80.0-98.0); NRBC Abs Auto 0.000 X10*3/uL (0.0-0.012); NRBC Pct Auto 0.0 /100WBC (0.0-0.2); Platelet Count 343 X10*3/uL (160-400); Red Blood Count 4.45 X10*6/uL (4.20-5.50); White Blood Count 11.3 X10*3/uL (4.8-10.8)
== END 2024-11-22 09:29 | disposition home or self-care (01) ==
LOC: HO.HHCL 09:28
PROVIDERS: PCP Family Medicine; Visit Provider Family Medicine
DX: M25.571 Pain in right ankle and joints of right foot (principal)
CPT/HCPCS: 36415; 85025; 85652; 86140

== ENCOUNTER 2024-12-12 13:14 | Outpatient (REF) | payer OTHER, SELFPAY ==
--- NOTE | ~2024-12-12 | US_ITS ---
EXAMINATION: US LOWER EXTREMITY VENOUS (REFLUX EXAM), BILATERAL CLINICAL INFORMATION: Swelling/edema lower extremities. COMPARISON: None. TECHNIQUE: Color flow triplex imaging and compression Doppler was performed to evaluate both the deep and the superficial systems bilaterally. To evaluate the superficial system, the examination was performed in the upright position. Color-flow Doppler ultrasound and compression ultrasound were utilized. In addition, maneuvers were utilized to demonstrate reflux. FINDINGS: 1. DEEP VENOUS ULTRASOUND OF THE RIGHT LOWER EXTREMITY: Common Femoral Vein: Compressible, normal respiratory variation and augmented flow. Femoral Vein: Compressible, normal color flow and augmentation. Popliteal Vein: Compressible, normal augmentation. Deep Reflux: There is no evidence of reflux in the deep system in either the common femoral vein, superficial femoral or the popliteal vein. There is no evidence of a Abreu's cyst. 2. SUPERFICIAL ULTRASOUND WITH DOPPLER OF RIGHT LOWER EXTREMITY: GREAT SAPHENOUS VEIN: Saphenofemoral Junction: 0.5 cm; Reflux: 0 ms Proximal Thigh: 0.3 cm; Reflux: 0 ms Mid Thigh: 0.2 cm; Reflux: 0 ms Distal Thigh: 0.3 cm; Reflux: 0 ms At Knee: 0.2 cm; Reflux: 0 ms Proximal Calf: 0.2 cm; Reflux: 0 ms Mid Calf: 0.1 cm; Reflux: 0 ms Distal Calf: 0.2 cm; Reflux: 0 ms DUPLICATED MEDIAL GREAT SAPHENOUS VEIN: Diameter: None imaged Reflux: NA DUPLICATED LATERAL GREAT SAPHENOUS VEIN: Diameter: 0.1 cm. Reflux: NA SMALL SAPHENOUS VEIN: Saphenopopliteal Junction: 0.4 cm; Reflux: 0 ms Proximal: 0.3 cm; Reflux: 0 ms Distal: 0.2 cm; Reflux: 0 ms VEIN OF GIACOMINI: Size: NA Reflux: NA PERFORATORS: Location: Mid calf. Size: 0.1-0.2 cm. Reflux: NA VARICOSITIES: Location: None imaged. Size: NA Reflux: NA 3. DEEP VENOUS ULTRASOUND OF THE LEFT LOWER EXTREMITY: Common Femoral Vein: Compressible, normal respiratory variation and augmented flow. Femoral Vein: Compressible, normal color flow and augmentation. Popliteal Vein: Compressible, normal augmentation. Deep Reflux: There is no evidence of reflux in the deep system in either the common femoral vein, superficial femoral or the popliteal vein. There is no evidence of a Abreu's cyst. 4. SUPERFICIAL ULTRASOUND WITH DOPPLER OF LEFT LOWER EXTREMITY: GREAT SAPHENOUS VEIN: Saphenofemoral Junction: 0.4 cm; Reflux: 0 ms Proximal Thigh: 0.3 cm; Reflux: 0 ms Mid Thigh: 0.1 cm; Reflux: 0 ms Distal Thigh: 0.2 cm; Reflux: 0 ms At Knee: 0.3 cm; Reflux: 0 ms Proximal Calf: 0.1 cm; Reflux: 0 ms Mid Calf: 0.2 cm; Reflux: 0 ms Distal Calf: 0.2 cm; Reflux: 0 ms DUPLICATED MEDIAL GREAT SAPHENOUS VEIN: Diameter: None imaged Reflux: NA DUPLICATED LATERAL GREAT SAPHENOUS VEIN: Diameter: None imaged. Reflux: NA SMALL SAPHENOUS VEIN: Saphenopopliteal Junction: 0.6 cm; Reflux: 0 ms Proximal: 0.3 cm; Reflux: 0 ms Distal: 0.3 cm; Reflux: 0 ms VEIN OF GIACOMINI: Size: NA Reflux: NA PERFORATORS: Location: Mid calf. Size: 0.1-0.3 cm. Reflux: NA VARICOSITIES: Location: Mid thigh. Size: 0.3 cm. Reflux: NA US/US venous insuf bilat IMPRESSION: Right: No venous insufficiency. Perforators without reflux, mid calf. Left: No venous insufficiency. Perforators and varices without reflux. Electronically signed by: Loi Ricardo MD 12/13/2024 09:01 AM EDT
--- OUTSIDE RECORDS SUMMARY | 2024-12-12 13:48 | XMS_ITS | Clinical Summary ---
Author Organization [facility] Address [address] [place] [phone] Phone Care Team Providers Care Engineering Psychologist Name Role Phone Renea King MD Primary Care Provider [phone] Surgical History Surgery Date Site/Laterality Comments CHOLECYSTECTOMY PROCEDURE: HISTORICAL CHOLECYSTECTOMY HYSTERECTOMY N/A PROCEDURE: HISTORICAL HYSTERECTOMY NEPHRECTOMY Right PROCEDURE: HISTORICAL NEPHRECTOMY OTHER SURGICAL HISTORY 11/11/2021 Right PROCEDURE: [place] BRONCHOSCOPY W/CPTR-ASST IMAGE-GUIDED NAVIGATION OTHER SURGICAL HISTORY 11/11/2021 Right PROCEDURE: [place] THORACOSCOPY W/DX WEDGE RESEXN ANATO LUNG RESEXN; COMMENT: right upper Medical History Medical History Date Comments Allergic rhinitis due to pollen DX:Allergic rhinitis due to pollen Arrhythmia DX:Arrhythmia COPD (chronic obstructive pu lmonary disease) ([facility] V24, [facility] V28) DX:COPD (chronic o bstructive pulmonary disease) ([facility]) Depression DX:Depression Elevated cholesterol DX:Elevated cholesterol GERD (gastroesophageal reflux disease) DX:GERD (gastroesophageal reflux disease) HTN (hypertension) DX:HTN (hyper tension) Hx of renal calculi DX:Hx of chai al calculi Pre-diabetes DX:Pre-diabetes Smoking addiction DX:Smoking add iction Tubular adenoma of colon DX:Tubu lar adenoma of colon Lung cancer ([facility] V24, [facility] V28) 12/03/2021 DX:Lung cancer ([facility]) Social History Tobacco Use Types Packs/Day Years [...] Upcoming Encounters Date Type Department Care Team ([facility] st Contact Info) Description 01/09/2025 11:30 AM EDT Appointment [facility] CT Scan [address] [place] [phone] 01/17/2025 11:00 AM EDT Office Visit Thoracic Surgery - [place] [address] [place] [phone] Yenny Brooks PA [address], [address] [place] [address] Health Maintenance Due Date Last Done Comments COVID-19 Vaccine (#1) 1950 DTaP,Tdap,and Td Vaccines (1 - Tdap) 08/21/1963 Pneumococcal Vaccine: 50+ Ye ars (1 of 2 - PCV) 08/21/1963 Zoster Vaccines (1 of 2) 08/21/1963 RSV Immunization Adult Patie nts (1 - 1-dose 75+ series) 08/21/2019 Cholesterol Screening (Lipid Panel) 04/11/2022 Falls Risk Assessment 04/11/2022 Lung Cancer Screening (Low Dose CT) 04/11/2022 Medicare Annual Wellness Visit 04/11/2022 Osteoporosis Screening (Bone Density Screening) 04/11/2022 Social Influencers of Health Screening 04/11/2022 Hypertension/CHF/CAD Annual BMP Blood Test 04/22/2022 Depression Screening 05/09/2024 Influenza Vaccine (#1) 2025 HIB Vaccines Aged [...] Documents on File Type Date Recorded Patient Commercial Account Officer Expl anation Health Care Decision (hx) 11/19/2021 AD CHOW DIRECTIVE Health Care Decision (hx) 11/19/2021 AD CHOW DIRECTIVE Health Care Decision (hx) 11/19/2021 AD CHOW DIRECTIVE Health Care Decision (hx) 11/19/2021 AD CHOW DIRECTIVE Care Teams Engineering Psychologist Relationship Specialty Start Date End Date Renea King MD [address] [place] [phone] PCP - General 10/09/21
--- OUTSIDE RECORDS SUMMARY | 2024-12-12 13:48 | XMS_ITS ---
Author Name Radford FLOW MANAGER,EVENTS SOLUTIONS CONSULTANT,FN P,MEMBERSHIP SALES ADVISOR, Jazlyn Address [address] [place] [address] Phone [phone] [facility] Care Team Providers Care Used Car Renovator Name Role Phone Jazlyn Radford Unavailable [phone] Ferd Garcia Unavailable [phone] Reason for Referral Not Available Allergies, adverse [...] (do not use for phone, instead use 78384-84) [facility] Unspecified asthma, uncomplicatedInsomnia, unspecifiedHyperlipidemia, unspecifiedVitamin D deficiency, unspecifiedAnxiety disorder, unspecifiedDepression, unspecifiedConstipation, unspecifiedOther specified postprocedural states New patient,40-59min; chronic exacerbation, 2 stable chronic or 1 acute illness add add modifier 95 for video (do not use for phone, instead use 05190-03) [facility] New patient,40-59min; chronic exacerbation, 2 stable chronic or 1 acute illness add add modifier 95 for video (do not use for phone, instead use 49407-93) [facility] New patient,40-59min; chronic exacerbation, 2 stable chronic or 1 acute illness add add modifier 95 for video (do not use for phone, instead use 30980-88) [facility] New patient,40-59min; chronic exacerbation, 2 stable chronic or 1 acute illness add add modifier 95 for video (do not use for phone, instead use 65307-18) [facility] 04[place] New patient,40-59min; chronic exacerbation, 2 stable chronic or 1 acute illness add add modifier 95 for video (do not use for phone, instead use 67704-87) [facility] 04[place] New patient,40-59min; chronic exacerbation, 2 stable chronic or 1 acute illness add add modifier 95 for video (do not use for phone, instead use 66051-69) [facility] 04/07/[place] New patient,40-59min; chronic exacerbation, 2 stable chronic or 1 acute illness add add modifier 95 for video (do not use for phone, instead use 52714-93) [facility] ([place] 04/07[place] New patient,40-59min; chronic exacerbation, 2 stable chronic or 1 acute illness add add modifier 95 for video (do not use for phone, instead use 31873-83) [facility] 04/07/[place] Estab. patient 30-39min; chronic exacerbation, 2 stable chronic or 1 acute illness add add modifier 95 for video, (do not use for phone, instead use 05007-14) [facility] 05/14/2022 Other specified postprocedur al statesUnspecified asthma, uncomplicatedInsomnia, unspecifiedHyperlipidemia, unspecifiedVitamin D deficiency, unspecifiedAnxiety disorder, unspecifiedMajor depressive disorder, single episode, in partial remissionConstipation, unspecifiedEssential (primary) hypertensionGout, unspecified Estab. patient 30-39min; chronic exacerbation, 2 stable chronic or 1 acute illness add add modifier 95 for video, (do not use for phone, instead use 04380-15) [facility] 05/[place]/20[place] Estab. patient 30-39min; chronic exacerbation, 2 stable chronic or 1 acute illness add add modifier 95 for video, (do not use for phone, instead use 25821-59) [facility] 05/[place]/20[place] Estab. patient 30-39min; chronic exacerbation, 2 stable chronic or 1 acute illness add add modifier 95 for video, (do not use for phone, instead use 18124-55) [facility] 05/[place]/20[place] Estab. patient 30-39min; chronic exacerbation, 2 stable chronic or 1 acute illness add add modifier 95 for video, (do not use for phone, instead use 58838-34) [facility] 05/[place]/20[place] Estab. patient 30-39min; chronic exacerbation, 2 stable chronic or 1 acute illness add add modifier 95 for video, (do not use for phone, instead use 74806-44) [facility] Estab. patient 30-39min; chronic exacerbation, 2 stable chronic or 1 acute illness add add modifier 95 for video, (do not use for phone, instead use 37340-33) [facility] 05/14/2022 No Data Available [facility] [place] 06/23/2022 Other specified postprocedur al statesUnspecified asthma, uncomplicatedInsomnia, unspecifiedHyperlipidemia, unspecifiedVitamin D deficiency, unspecifiedAnxiety disorder, unspecifiedMajor depressive disorder, single episode, in partial remissionConstipation, unspecifiedEssential (primary) hypertensionGout, unspecified No Data Available [facility] 06[place]23/20[place] No Data Available [facility] 06/23/2022 Unlisted special service; to be used for medical record reviews and reporting CPTII codes (1111F, etc) [facility] ([place]) 03/11/2023 Other specified health statu s Unlisted special service; to be used for medical record reviews and reporting CPTII codes (1111F, etc) [facility] ([place] 03/11/2023 Unlisted special service; to be used for medical record reviews and reporting CPTII codes (1111F, etc) [facility] ([place] 03/11/2023 Estab. patient 30-39min; chronic exacerbation, 2 stable chronic or 1 acute illness add add modifier 95 for video, (do not use for phone, instead use 71997-68) [facility] ([place] 12/30/2023 Malignant neoplasm of upper lobe, right [...] (do not use for phone, instead use 75951-81) [facility] ([place] 12/30/2023 Estab. patient 30-39min; chronic exacerbation, 2 stable chronic or 1 acute illness add add modifier 95 for video, (do not use for phone, instead use 74553-69) [facility] 12[place]20[place] Estab. patient 30-39min; chronic exacerbation, 2 stable chronic or 1 acute illness add add modifier 95 for video, (do not use for phone, instead use 37184-48) [facility] 12[place]20[place] Estab. patient 30-39min; chronic exacerbation, 2 stable chronic or 1 acute illness add add modifier 95 for video, (do not use for phone, instead use 13736-96) [facility] 12[place]/2023 Estab. patient 30-39min; chronic exacerbation, 2 stable chronic or 1 acute illness add add modifier 95 for video, (do not use for phone, instead use 88786-23) [facility] 12[place]/20[place] Estab. patient 30-39min; chronic exacerbation, 2 stable chronic or 1 acute illness add add modifier 95 for video, (do not use for phone, instead use 30419-12) [facility]20[place] Estab. patient 30-39min; chronic exacerbation, 2 stable chronic or 1 acute illness add add modifier 95 for video, (do not use for phone, instead use 51810-78) [facility] 12[place]20[place] Estab. patient 30-39min; chronic exacerbation, 2 stable chronic or 1 acute illness add add modifier 95 for video, (do not use for phone, instead use 33244-72) [facility] 12[place]/20[place] Estab. patient 30-39min; chronic exacerbation, 2 stable chronic or 1 acute illness add add modifier 95 for video, (do not use for phone, instead use 52011-76) [facility] 12[place] Estab. patient 20-29min; 1 stable chronic or 2 minor; add add modifier 95 for video, modifier 93 for phone [facility] 07[place] Other specified chronic obstructive [...] 95 for video, modifier 93 for phone [facility] Estab. patient 20-29min; 1 stable chronic or 2 minor; add add modifier 95 for video, modifier 93 for phone [facility] [place] Estab. patient 20-29min; 1 stable chronic or 2 minor; add add modifier 95 for video, modifier 93 for phone [facility] 07[place]23/20[place] Estab. patient 20-29min; 1 stable chronic or 2 minor; add add modifier 95 for video, modifier 93 for phone [facility] 07/23/20[place] Estab. patient 20-29min; 1 stable chronic or 2 minor; add add modifier 95 for video, modifier 93 for phone [facility] [place] Estab. patient 20-29min; 1 stable chronic or 2 minor; add add modifier 95 for video, modifier 93 for phone [facility] 07/23/20[place] Estab. patient 20-29min; 1 stable chronic or 2 minor; add add modifier 95 for video, modifier 93 for phone [facility] 07/23/20[place] Estab. patient 20-29min; 1 stable chronic or 2 minor; add add modifier 95 for video, modifier 93 for phone [facility] 07[place]2024 Vital Signs Date [...] tive Time Current Smoking Status Former smoker 6 Sex Female History of Procedures Procedures Service Procedure code Service date Servicing provider Phone# New patient,40-59min; chronic exacerbation, 2 stable chronic or 1 acute illness add add modifier 95 for video (do not use for phone, instead use 98330-61) 88060 2022-04-07 No Data Available No Data Availa [...] (do not use for phone, instead use 50978-94) 01776 2022-05-14 No Data Available No Data Availa [...] No Data Eugenia ilable No Data Available 81721 2022-06-23 No Data Available No Data Available Medication List Documented (1159F) 1159F 2022-06-23 No Data Available No Data Eugenia ilable Pain Assessment - Pain Documented on a Pain Scale (1125F) 1125F 2022-06-23 No Data Available No Data Eugenia ilable Unlisted special service; to be used for medical record reviews and reporting CPTII codes (1111F, etc) 40974 2023-03-11 No Data Available No Data Availa ble SBP < 130 (3074F) 3074F 2023-03-11 No Data Available No Data Available DBP <80 (3078F) 3078F 2023-03-11 No Data Available No Data Available Estab. 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 Follow-up with [facility] as needed for any acute or disease [...]
--- OUTSIDE RECORDS SUMMARY | 2024-12-12 13:48 | XMS_ITS | Encounter Summary ---
Author Organization [employer] Address [address] [place] [address] [address] [place] [address] Care Team Providers Care Cleaner And Dyer Name Role Phone Renea King MD Primary Care Provider [phone] Shen Blakely PharmD Unavailable [phone] Reason for Visit * Reason Comments Med Refill Encounter Details Date Type Department Care Team (Late st Contact Info) Description 12/07/2024 Refill [facility] [address] [place], [place] [phone] Shen Blakely, PharmD [address] [place], [place] [phone] Primary hypertension Social History Tobacco Use Types Packs/Day Years Used Date Smoking Tobacco: Former Cigarettes Passive Smoke Exposure: Past Smokeless Tobacco: Never Alcohol Use Standard Drinks/Week Comments Not Currently 0 (1 standard drink = 0.6 oz pur e alcohol) Depression Answer Date Recorded Patient Health Questionnaire-9 Score 5 11/01/2024 Patient Health Questionnaire-9 Score 5 11/01/2024 Last PHQ-9: Questionnaire Data Not on file 0 11/01/2024 Housing Stability Answer Date Recorded What is [...] Answer Date Recorded Patient Health Questionnaire-2 Score 2 11/01/2024 Internet Access Answer Date Recorded Internet Access Q1 Yes 01/09/2024 Internet Access Q2 Not on file 01/09/2024 Comments No Sex and Gender Information Value Date Recorded Sex Assigned at Female 03/08/2022 10:21 AM EDT Legal Sex Female 10:21 AM EDT Gender Identity Female 03/08/2022 10:21 AM EDT Sexual Orientation Choose not to disclose 2021 10:21 AM EDT documented as of this encounter Miscellaneous Notes * Telephone Encounter - Sehn Blakely PharmD - 12/07/2024 11:14 AM EDT CDTM Pharmacit will renew amlodipine 5 mg po daily, with 1 fill until FU 01/25/2025. Dependent on visit further fills will be sent. documented in this encounter Plan of Treatment Upcoming Encounters Date Type Department Care Team ([facility] st Contact Info) Description 01/25/2025 10:00 AM EDT Medication Management [facility] [address] [place] [phone] Shen Blakely, PharmYaneth [address] [place] [address] 01/28/2025 3:15 PM EDT Office Visit [facility] [address] [place] [phone] Renea King MD [address] [place] [address] 03/29/2025 1:00 PM EST Office Visit [facility] OPTOM[facility] [address] [place] [phone] Milad Angela, OD [address] [place] [address] documented as of this encounter Goals Goal Patient Goal Type Associated Problems Recent Progress Patient-Stated? Author Blood Pressure < 150/90 Blood Pressure 146/74( 025 11:25 AM EDT) No Shen Blakely, PharmD documented as of this encounter Visit Diagnoses Diagnosis Primary hypertension Unspecified essential hypertension documented in this encounter Additional Health Concerns Assessment Noted Time PHQ-9 Depression Total Score: 5 11/02/19 25 11:25 AM EDT documented as of this encounter Care Teams Cleaner And Dyer Relationship Specialty Start Date End Date Renea King MD [address] [place] [address] PCP - General Family Medicine 05/09/18 Shen Blakely, PharmD [address] [place] [phone] Pharmacist Internal Medicine 03/11/23 documented as of this encounter
== END 2024-12-12 13:15 | disposition home or self-care (01) ==
LOC: HO.US 13:14
PROVIDERS: PCP Family Medicine; Visit Provider Family Medicine
DX: R60.0 Localized edema (principal)
CPT/HCPCS: 93970

== ENCOUNTER → 2024-12-12 13:16 | Outpatient (BNV) | payer OTHER, SELFPAY | PROVIDERS: PCP Family Medicine; Visit Provider Radiology Diagnostic Radiology | DX: R22.43 Localized swelling, mass and lump, lower limb, bilateral (principal) | CPT/HCPCS: 93970 ==

== ENCOUNTER 2024-12-24 15:41 | Outpatient (REF) | payer OTHER, SELFPAY ==
--- NOTE | ~2024-12-24 | CT_ITS ---
CLINICAL HISTORY: C34.90 - Malignant neoplasm of unspecified part of unspecified bronchus ... CT chest without contrast Comparison: 12/17/2022 Findings: Lung suarez are clear without acute infiltrates. Stable areas of linear scarring on right. No significant mediastinal adenopathy. No significant free pleural fluid. No significant focal bony abnormalities. Impression: No acute processes This document has been electronically signed by: Rigoberto Bay MD on 12/25/2024 21:41:48
--- OUTSIDE RECORDS SUMMARY | 2024-12-24 16:06 | XMS_ITS | Clinical Summary ---
Author Organization [facility] Address [address] [place] [phone] Phone Care Team Providers Care Bellperson Name Role Phone Renea King MD Primary Care Provider Surgical History Surgery Date Site/Laterality Comments CHOLECYSTECTOMY PROCEDURE: HISTORICAL CHOLECYSTECTOMY HYSTERECTOMY N/A PROCEDURE: HISTORICAL HYSTERECTOMY NEPHRECTOMY Right PROCEDURE: HISTORICAL NEPHRECTOMY OTHER SURGICAL HISTORY 11/11/2021 Right PROCEDURE: AK BRONCHOSCOPY W/CPTR-ASST IMAGE-GUIDED NAVIGATION OTHER SURGICAL HISTORY 11/11/2021 Right PROCEDURE: AK THORACOSCOPY W/DX WEDGE RESEXN ANATO LUNG RESEXN; COMMENT: right upper Medical History Medical History Date Comments Allergic rhinitis due to pollen DX:Allergic rhinitis due to pollen Arrhythmia DX:Arrhythmia COPD (chronic obstructive pu lmonary disease) ([facility] V24, [facility] V28) DX:COPD (chronic o bstructive pulmonary disease) ([facility]) Depression DX:Depression Elevated cholesterol DX:Elevated cholesterol GERD (gastroesophageal reflux disease) DX:GERD (gastroesophageal reflux disease) HTN (hypertension) DX:HTN (hyper tension) Hx of renal calculi DX:Hx of chai al calculi Pre-diabetes DX:Pre-diabetes Smoking addiction DX:Smoking add iction Tubular adenoma of colon DX:Tubu lar adenoma of colon Lung cancer ([facility] V24, [facility] V28) 12/03/2021 DX:Lung cancer ([facility]) Social History Tobacco Use Types Packs/Day [...] Upcoming Encounters Date Type Department Care Team ([facility] st Contact Info) Description 01/09/2025 11:[address] [facility] CT Scan [address] [place] [phone] 01/17/2025 11:00 AM EDT Office Visit Thoracic Surgery - [place] [address] [facility] [facility] [address] [place] [phone] Yenny Brooks PA [address] [facility], [address] [place] [address] Health Maintenance Due Date Last Done Comments [...] Documents on File Type Date Recorded Patient Physical Therapist Expl anation Health Care Decision (hx) 11/19/2021 AD CHOW DIRECTIVE Health Care Decision (hx) 11/19/2021 AD CHOW DIRECTIVE Health Care Decision (hx) 11/19/2021 AD CHOW DIRECTIVE Health Care Decision (hx) 11/19/2021 AD CHOW DIRECTIVE Care Teams Bellperson Relationship Specialty Start Date End Date Renea King MD [address] [place] [phone] PCP - General 10/09/21
--- OUTSIDE RECORDS SUMMARY | 2024-12-24 16:06 | XMS_ITS | Encounter Summary ---
Author Organization [employer] Address [address] [place] [address] [address] [place] [address] Care Team Providers Care Gas Station Attendant Name Role Phone Renea King MD Primary Care Provider [phone] Shen Blakely PharmD Unavailable [phone] Encounter Details Date Type Department Care Team ([facility] st Contact Info) Description 11/23/2024 Results Follow-Up [facility] [address] [place], [place] [phone] Renea King MD [address] [place], [place] [phone] CBC auto differential, C-reactive Protein, Sed Rate by Modified [place] Social History Tobacco Use Types Packs/Day Years [...] Care Team (Late st Contact Info) Description 01/25/2025 10:00 AM EDT Medication Management [facility] [address] [place] [address] Shen Blakely, PharmD [address] [place] [address] 01/28/2025 3:15 PM EDT Office Visit [facility] [address] [place] [address] Renea King MD [address] [place] [address] 03/29/2025 1:00 PM EST Office Visit [facility] OPTOMETRY [address] [place] [address] Angela Stinson OD [address] [place] [address] documented as of this encounter Goals Goal [...] documented as of this encounter Care Teams Gas Station Attendant Relationship Specialty Start Date End Date Renea King MD [address] [place] [address] PCP - General Family Medicine 05/09/18 Shen Blakely PharmD [address] [place] [address] Pharmacist Internal Medicine 03/11/23 documented as of this encounter
--- OUTSIDE RECORDS SUMMARY | 2024-12-24 16:06 | XMS_ITS ---
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 Care Team Providers Care Quality Control Chemist Name Role Phone Jazlyn Radford Unavailable [phone] Fred Garcia Unavailable [phone] Reason for Referral Not Available Allergies, adverse [...] (do not use for phone, instead use 65213-56) [facility] Unspecified asthma, uncomplicatedInsomnia, unspecifiedHyperlipidemia, unspecifiedVitamin D deficiency, unspecifiedAnxiety disorder, unspecifiedDepression, unspecifiedConstipation, unspecifiedOther specified postprocedural states New patient,40-59min; chronic exacerbation, 2 stable chronic or 1 acute illness add add modifier 95 for video (do not use for phone, instead use 59902-05) [facility] New patient,40-59min; chronic exacerbation, 2 stable chronic or 1 acute illness add add modifier 95 for video (do not use for phone, instead use 25451-72) [facility] New patient,40-59min; chronic exacerbation, 2 stable chronic or 1 acute illness add add modifier 95 for video (do not use for phone, instead use 64330-64) [facility] New patient,40-59min; chronic exacerbation, 2 stable chronic or 1 acute illness add add modifier 95 for video (do not use for phone, instead use 93093-68) [facility] New patient,40-59min; chronic exacerbation, 2 stable chronic or 1 acute illness add add modifier 95 for video (do not use for phone, instead use 11343-11) [facility] New patient,40-59min; chronic exacerbation, 2 stable chronic or 1 acute illness add add modifier 95 for video (do not use for phone, instead use 07875-90) [facility] New patient,40-59min; chronic exacerbation, 2 stable chronic or 1 acute illness add add modifier 95 for video (do not use for phone, instead use 74366-49) [facility] ([place] New patient,40-59min; chronic exacerbation, 2 stable chronic or 1 acute illness add add modifier 95 for video (do not use for phone, instead use 93755-38) [facility] Estab. patient 30-39min; chronic exacerbation, 2 stable chronic or 1 acute illness add add modifier 95 for video, (do not use for phone, instead use 03322-24) [facility] 05[place]14/2022 Other specified postprocedur al statesUnspecified asthma, uncomplicatedInsomnia, unspecifiedHyperlipidemia, unspecifiedVitamin D deficiency, unspecifiedAnxiety disorder, unspecifiedMajor depressive disorder, single episode, in partial remissionConstipation, unspecifiedEssential (primary) hypertensionGout, unspecified Estab. patient 30-39min; chronic exacerbation, 2 stable chronic or 1 acute illness add add modifier 95 for video, (do not use for phone, instead use 75732-22) [facility] Estab. patient 30-39min; chronic exacerbation, 2 stable chronic or 1 acute illness add add modifier 95 for video, (do not use for phone, instead use 12970-09) [facility] Estab. patient 30-39min; chronic exacerbation, 2 stable chronic or 1 acute illness add add modifier 95 for video, (do not use for phone, instead use 32502-38) [facility] Estab. patient 30-39min; chronic exacerbation, 2 stable chronic or 1 acute illness add add modifier 95 for video, (do not use for phone, instead use 11266-18) [facility] Estab. patient 30-39min; chronic exacerbation, 2 stable chronic or 1 acute illness add add modifier 95 for video, (do not use for phone, instead use 51246-25) [facility] Estab. patient 30-39min; chronic exacerbation, 2 stable chronic or 1 acute illness add add modifier 95 for video, (do not use for phone, instead use 41258-11) [facility] 05[place]/2022 No Data Available [facility] 06/23/2022 Other specified postprocedur al statesUnspecified asthma, uncomplicatedInsomnia, unspecifiedHyperlipidemia, unspecifiedVitamin D deficiency, unspecifiedAnxiety disorder, unspecifiedMajor depressive disorder, single episode, in partial remissionConstipation, unspecifiedEssential (primary) hypertensionGout, unspecified No Data Available [facility] 06[place]20[place] No Data Available [facility] 06[place]23/2022 Unlisted special service; to be used for medical record reviews and reporting CPTII codes (1111F, etc) [facility] ([place] 03/11/2023 Other specified health statu s Unlisted special service; to be used for medical record reviews and reporting CPTII codes (1111F, etc) [facility] ([place]23 Unlisted special service; to be used for medical record reviews and reporting CPTII codes (1111F, etc) [facility] [place] 03[place] Estab. patient 30-39min; chronic exacerbation, 2 stable chronic or 1 acute illness add add modifier 95 for video, (do not use for phone, instead use 22270-51) [facility] ([place] 12[place]30/2023 Malignant neoplasm of upper lobe, right [...] (do not use for phone, instead use 52044-03) [facility] [place] 12[place]30/[place] Estab. patient 30-39min; chronic exacerbation, 2 stable chronic or 1 acute illness add add modifier 95 for video, (do not use for phone, instead use 26914-81) [facility] Estab. patient 30-39min; chronic exacerbation, 2 stable chronic or 1 acute illness add add modifier 95 for video, (do not use for phone, instead use 94505-59) [facility] Estab. patient 30-39min; chronic exacerbation, 2 stable chronic or 1 acute illness add add modifier 95 for video, (do not use for phone, instead use 10212-58) [facility] Estab. patient 30-39min; chronic exacerbation, 2 stable chronic or 1 acute illness add add modifier 95 for video, (do not use for phone, instead use 65392-73) [facility] Estab. patient 30-39min; chronic exacerbation, 2 stable chronic or 1 acute illness add add modifier 95 for video, (do not use for phone, instead use 59131-62) [facility] Estab. patient 30-39min; chronic exacerbation, 2 stable chronic or 1 acute illness add add modifier 95 for video, (do not use for phone, instead use 81587-57) [facility] Estab. patient 30-39min; chronic exacerbation, 2 stable chronic or 1 acute illness add add modifier 95 for video, (do not use for phone, instead use 61643-82) [facility] Estab. patient 30-39min; chronic exacerbation, 2 stable chronic or 1 acute illness add add modifier 95 for video, (do not use for phone, instead use 73324-87) [facility] Estab. patient 20-29min; 1 stable chronic or 2 minor; add add modifier 95 for video, modifier 93 for phone [facility]24 Other specified chronic obstructive [...] 95 for video, modifier 93 for phone [facility] Estab. patient 20-29min; 1 stable chronic or 2 minor; add add modifier 95 for video, modifier 93 for phone [facility] Estab. patient 20-29min; 1 stable chronic or 2 minor; add add modifier 95 for video, modifier 93 for phone [facility]20[place] Estab. patient 20-29min; 1 stable chronic or 2 minor; add add modifier 95 for video, modifier 93 for phone [facility]23[place]20[place] Estab. patient 20-29min; 1 stable chronic or 2 minor; add add modifier 95 for video, modifier 93 for phone [facility]20[place] Estab. patient 20-29min; 1 stable chronic or 2 minor; add add modifier 95 for video, modifier 93 for phone [facility] 07[place]23[place]20[place] Estab. patient 20-29min; 1 stable chronic or 2 minor; add add modifier 95 for video, modifier 93 for phone [facility] 07[place]23/20[place] Estab. patient 20-29min; 1 stable chronic or 2 minor; add add modifier 95 for video, modifier 93 for phone [facility] Vital Signs Date [...] tive Time Current Smoking Status Former smoker 2024-12-07 7 Sex Female History of Procedures Procedures Service Procedure code Service date Servicing provider Phone# New patient,40-59min; chronic exacerbation, 2 stable chronic or 1 acute illness add add modifier 95 for video (do not use for phone, instead use 13488-93) [id number] 2022-04-07 No Data Available No Data Availa [...] (do not use for phone, instead use 78483-59) 25128 2022-05-14 No Data Available No Data Availa [...] No Data Eugenia ilable No Data Available [id number] 2022-06-23 No Data Available No Data Available Medication List Documented (1159F) 1159F 2022-06-23 No Data Available No Data Eugenia ilable Pain Assessment - Pain Documented on a Pain Scale (1125F) 1125F 2022-06-23 No Data Available No Data Eugenia ilable Unlisted special service; to be used for medical record reviews and reporting CPTII codes (1111F, etc) 98650 2023-03-11 No Data Available No Data Availa ble SBP < 130 (3074F) 3074F 2023-03-11 No Data Available No Data Available DBP <80 (3078F) 3078F 2023-03-11 No Data Available No Data Available Estab. patient 30-39min; chronic exacerbation, 2 stable chronic or 1 acute illness add add modifier 95 for video, (do not use for phone, instead use 45664-50) 03738 2023-12-30 No Data Available No Data Availa [...] 95 for video, modifier 93 for phone 50106 2024-07-23 No Data Available No Data Availa [...] week: 2022-05-14 ambulates with cane 2022-05-14 has deputy k 9 at home 2022-05-14 Mental Status Status Date [...] modifier 95)Continue to see PCP. Follow-up with [facility] as needed for any acute or disease [...]
== END 2024-12-24 15:42 | disposition home or self-care (01) ==
LOC: HO.CT 15:41
PROVIDERS: PCP Family Medicine; Visit Provider Hospitalist
DX: C34.90 Malignant neoplasm of unspecified part of unspecified bronchus or lung (principal)
CPT/HCPCS: 71250

== ENCOUNTER → 2024-12-24 16:00 | Outpatient (BNV) | payer OTHER, SELFPAY | PROVIDERS: PCP Family Medicine; Visit Provider Radiology Diagnostic Radiology | DX: C34.90 Malignant neoplasm of unspecified part of unspecified bronchus or lung (principal) | CPT/HCPCS: 71250 ==

== ENCOUNTER 2025-03-21 13:03 | Outpatient (AMB) | payer OTHER, SELFPAY ==
--- NOTE | 2025-03-21 13:16 | A.OFFVIS_ITS ---
Vital Signs 03/21/25 13:20 Height 5 ft 2 in Weight 213 lb BMI 39.0 Intake Visit Reasons: Right Ankle Pain Intake Note: Kim is a 79 year old female who presents today as a new patient for an evaluation of her right ankle pain. Patient reports she has had the pain for about 4 months and is located on the lateral aspect of the ankle. She states she was prescribed a medication for the inflammation of her ankle by her PCP. Ankle X-ray IMPRESSION: Diffuse soft tissue swelling. No osseous abnormality is identified. Mold Machine Operator Required: Yes Mold Machine Operator Services: Mold Machine Operator Present Mold Machine Operator Name: [id number] Allergies No Known Allergies (No Known Allergies*) Allergy (Verified 03/21/25 13:22) HPI HPI Right Ankle Pain: Details: Video female past medical history of COPD presents for right ankle pain. The patient states she has had right ankle pain for over 4 months. She denies any onset factors, denies injury or trauma. She states that the pain is worse when ambulating. She notices that the ankle swells more as she ambulates. Denies treatment for the ankle in the past. [facility] Medical History HLD (hyperlipidemia) Colon polyp Lung cancer (~2021) Allergic rhinitis Smoker Family history of colon cancer Pre-diabetes GERD (gastroesophageal reflux disease) Hx of renal calculi Depression COPD (chronic obstructive pulmonary disease) HTN (hypertension) Surgical History History of cholecystectomy (~2018) History of colonoscopy (~2021) History of hysterectomy (~1974) History of lobectomy of lung (~2021) History of right nephrectomy (~1986) Family History Father No problems noted. Mother No problems noted. Social History Patient Tobacco Use Status: Current everyday Tobacco user Tobacco use type: Cigarette Cigarette Packs Per Day: 1 Cigarettes Per Day: 10 Years Smoked: 50 Second Hand Smoke Exposure: No Review of Systems Const All systems reviewed & are unremarkable except as noted in HPI and below Physical Exam Vital Signs: BMI result Body Mass Index 39.0 Extrem Other: *Bilateral Lower Extremity Focused Exam Vascular: DP/PT 2/4, CFT<3s to digits, TG warm to cool, mild right lateral ankle edema Derm: No erythema or clinical signs of infection Neuro: Protective sensation grossly intact to bilateral lower extremities MSK: Moderate tenderness to the anterior lateral gutter of the ankle joint, worse on dorsiflexion. Mild pain on palpation of the peroneal tendons at the level of the distal fibula, no pain radiating to the proximal leg or to the 5th metatarsal base. No pain on passive or active inversion or eversion. Office Procedures AMB Joint Injection/Aspir Pod Joint Injection/Aspiration Podiatry: Procedure: Steroid injection Location: Right ankle Medication: 1.5cc 0.5% bupivicaine, 1cc dexamethasone, 0.5cc kenalog? Description: The an ankle was prepped using betadinel. A steroid injection was administered using sterile technique. The site was dressed using a band-aid. Post-procedure Instructions: The patient was instructed to apply ice to the injection site. The patient was advised to call the office if there are signs or symptoms of worsening pain, infection, or steroid flare. RT - Injection of intermediate joint RT Procedure code (CPT) selection complete Office Meds triamcinolone acetonide 40 mg/mL suspension for injection Performing Provider: Bobby Astorga DPM Performing Location: [facility] Administered by: Bobby Astorga DPM on 03/21/25 13:50 Dose Route Admin Location Dispensed Lot Number Expiration Date [facility] Equipment Installer 20 mg intra-articular 1 mL [id number] [employer]N [employer] Total Dispensed Waste 1 mL 50 % dexamethasone sodium phosphate 4 mg/mL injection solution Performing Provider: Bobby Astorga DPM Performing Location: [facility] Administered by: Bobby Astorga DPM on 03/21/25 13:50 Dose Route Admin Location Dispensed Lot Number Expiration Date [facility] Equipment Installer 4 mg intra-articular 1 mL [id number] MYL [employer] INSTITUTI Total Dispensed Waste 1 mL 0 % bupivacaine (PF) 0.5 % (5 mg/mL) injection solution Performing Provider: Bobby Astorga DPM Performing Location: [facility] Administered by: Bobby Astorga DPM on 03/21/25 13:50 Dose Route Admin Location Dispensed Lot Number Expiration Date [facility] Equipment Installer 2 mL intra-articular 10 mL [id number] [employer] Total Dispensed Waste 10 mL 80 % Results Reviewed Results Reviewed: Podiatry X-ray Read: 10/04/2024 X-ray right ankle 3 views (AP, Mortise, Lateral) reviewed which shows mild symmetric joint space narrowing of the tibiotalar joint. I personally reviewed the imaging and my findings are listed above. Assessment & Plan Assessment & Plan (1) Osteoarthritis of ankle: Code(s): M19.079 - Primary osteoarthritis, unspecified ankle and foot Category: Medical Qualifiers: Osteoarthritis type: primary Laterality: right Qualified Code(s): M19.071 - Primary osteoarthritis, right ankle and foot Plan: * Reviewed right ankle x-rays with the patient and her daughter * A steroid injection was administered to the right ankle. * Follow up in 1 month (2) Peroneal tendinitis of right lower extremity: Code(s): M76.71 - Peroneal tendinitis, right leg Category: Medical Plan: * Recommended ROM and stretching exercises. A handout was dispensed. * An freddie wrap was applied to the RLE for the ankle swelling. Orders: Orders AMB Joint Injection/Aspiration Podiatry Today M19.071 - Primary osteoarthritis, right ankle and foot Coding Level of Care Code New Pt Level 4 (53692) Diagnoses Primary osteoarthritis of right ankle M19.071 Osteoarthritis type: primary Laterality: right Peroneal tendinitis of right lower extremity M76.71 CPT Codes Joint injectio/aspiration Podiatry - Joint Injection POD5: RT - Injection of intermediate joint RT ([id number]) Time Spent (min) 25
[2025-03-21 13:20] VITALS: BMI 39.0
--- OUTSIDE RECORDS SUMMARY | 2025-03-21 16:23 | XMS_ITS | Clinical Summary ---
Author Organization [email or web address] Address [address] [place] [address] [address] [place] [address] Care Team Providers Care [employer]ace Name Role Phone Renea King MD Primary Care Provider [phone] Shen Blakely PharmD Unavailable [phone] Allergies No known active allergies Medications albuterol [...] cough 60 tablet 11 06/13/19 24 Active fluticasone (Flonase) 50 MCG/ACT nasal spray INSTILL 1 SPRAY IN EACH NOSTRIL ONCE DAILY 09/30/19 24 Active allopurinol (Zyloprim) 100 MG tablet TAKE 1 TABLET BY MOUTH EVERY MORNING 90 tablet 3 06/14/19 25 Active rosuvastatin (Crestor) 5 MG tablet TAKE 1 TABLET BY MOUTH AT BEDTIME 90 tablet 3 06/14/19 25 Active traZODone (Desyrel) 150 MG tablet TAKE 1 TABLET BY MOUTH AT BEDTIME 90 tablet 3 09/12/19 25 Active alendronate (Fosamax) 70 MG tablet TAKE 1 TABLET BY MOUTH IN THE MORNING EVERY 7 DAYS WITH A FULL GLASS OF WATER, ON AN EMPTY STOMACH, Do not lie down for 30 minutes after taking 4 tablet 11 10/06/19 25 Active cholecalciferol (Vitamin D-3) 25 MCG tabletIndicatio ns:Vitamin D deficiency TAKE 1 TABLET BY MOUTH EVERY MORNING 90 tablet 1 12/07/19 25 Active amitriptyline (Elavil) 75 MG tablet TAKE 1 TABLET BY MOUTH AT BEDTIME 90 tablet 1 01/01/20 25 Active losartan (Cozaar) 100 MG tablet TAKE 1 TABLET BY MOUTH EVERY MORNING 90 tablet 1 01/03/20 25 Active hydrOXYzine HCl (Atarax) 25 MG tabletIndicatio ns:Anxiety TAKE 1 TABLET BY MOUTH TWICE DAILY IN THE MORNING AND AT BEDTIME NEEDED FOR ANXIETY OR (for itching) 60 tablet 2 01/29/20 25 Active torsemide (Demadex) 5 MG tablet Take 1 tablet (5 mg) by mouth Once per day. 90 tablet 3 01/29/20 25 026 Active colchicine 0.6 MG tablet Take 1 tablet by mouth once or twice daily as needed until gout flare resolves 60 tablet 3 01/29/20 25 Active celecoxib (CeleBREX) 200 MG capsule TAKE 1 CAPSULE BY MOUTH TWICE DAILY IN THE MORNING AND AT BEDTIME NEEDED FOR MILD PAIN 60 capsule 1 02/26/20 25 Active amLODIPine (Norvasc) 5 MG tabletIndicatio ns:Primary hypertension Take 1 tablet (5 mg) by mouth in the morning. 90 tablet 02/29/20 25 Active amLODIPine (Norvasc) 5 MG tabletIndicatio ns:Primary hypertension TAKE 1 TABLET BY MOUTH EVERY MORNING 90 tablet 12/08/19 25 025 Discontinued(R eorder (will not trigger notification to Pharmacy)) celecoxib (CeleBREX) 200 MG capsule TAKE 1 CAPSULE BY MOUTH TWICE DAILY IN THE MORNING AND AT BEDTIME NEEDED FOR MILD PAIN 60 capsule 1 01/01/20 25 025 Discontinued Active Problems Problem Noted Date Diagnosed Date Acute right ankle pain 10/04/2024 Assessment & Plan (02/05/2025 9:24 AM EDT): - DDx: sprain; gout; arthritis - continue leg elevation - Prescribed celecoxib (CeleBREX) 200 MG capsule 11/01/24 - Try colchicine - Check lab - Consider steroid if no mimprovement Assessment & Plan (11/03/2024 9:07 AM EDT): - Prescribed celecoxib (CeleBREX) 200 MG capsule 11/01/24 - Ordered on 11/01/24: -CBC auto differential -C-reactive Protein -Sed Rate by Modified Westergren Osteoporosis 09/22/2023 Assessment & Plan (11/03/2024 9:04 AM EDT): - 07/22/23 DEXA shows osteoporosis, she will start alendronate (fosamax) 70 mg weekly, patient was advised to continue weight bearing exercises, discussed about fall precautions - Risk factors: post-menopause; prior hx smoking; vitamin D deficiency Assessment & Plan (04/29/2024 5:49 PM EST): [...] Adenocarcinoma. - s/p RUL Assessment & Plan (02/05/2025 9:18 AM EDT): -Dx in November 2021 -Stage IA Adenocarcinoma -s/p Right upper lobectomy on 11/11/[address] Nicole. -No matatasis, no chemotherapy indicated. -Most recent imaging study: CT on 12/25/2024 No recurrence. No new nodules. No lymphadenopathy. -Last seen by Dr. Garcia, orthodontic band maker, on 11/20/2024 -Last seen by Dr. Nicole, thoracic surgeon in Jan 2024, -Plan is to continue surveillance CT scan, next in 1 year Assessment & Plan (11/03/2024 9:05 AM EDT): -Dx in November 2021 -Stage IA Adenocarcinoma -s/p Right upper lobectomy on 11/11/[address] Nicole. -No matatasis, no chemotherapy indicated. -Most recent imaging study: CT on 01/31/24 No recurrence. No new nodules. No lymphadenopathy. -Last seen by Dr. Nicole, thoracic surgeon in Jan 2024, -Plan is to continue surveillance CT scan, next in 1 year Assessment & Plan (04/29/2024 5:47 PM EST): [...] 3 yrs. Gout 08/03/2022 Assessment & Plan (02/05/2025 9:22 AM EDT): -hyperuricemia -Last uric acid level 5.7 in September 2023, improved from 8.2 in 2019, 7.1 in 2022 -continue allopurinol 100 mg daily (started in July 2022) -will try colchicine -continue low purine diet -Current pain and swelling seem to be sprain, rather than gout Assessment & Plan (11/03/2024 9:05 AM EDT): -hyperuricemia -Last uric acid level 5.7 in September 2023, improved from 8.2 in 2019, 7.1 in 2022 -continue allopurinol 100 mg daily (started in July 2022) -continue low purine diet Assessment & Plan (04/29/2024 5:52 PM EST): [...] Assessment & Plan (04/29/2024 5:50 PM EST): S provider: [facility] Current medications: amitriptyline, trazodone, and hydroxyzine Previously receiving in-home therapy / outreach through [facility]. She has a therapy dog. Although amitriptyline is high dose for her age, pt was unable to tolerate further decrease. Continue its judicious use. She has not been taking hydroxyzine for a while; Will resume today to be taken prn for anxiety. She was able to contract her safety today. Assessment & Plan (09/22/2023 9:56 AM EDT): [facility] provider: [facility] Current medications: amitriptyline, trazodone, and hydroxyzine Previously receiving in-home therapy / outreach through [facility]. She has a therapy dog. Although amitriptyline is high dose for her age, pt was unable to tolerate further decrease. Continue its judicious use. She has not been taking hydroxyzine for a while; Will resume today to be taken prn for anxiety. She was able to contract her safety today. Assessment & Plan (06/13/2023 5:07 PM EST): [facility] provider: [facility] Current medications: amitriptyline, trazodone, and hydroxyzine Previously receiving in-home therapy / outreach through [facility]. She has a therapy dog. Although amitriptyline is high dose for her age, pt was unable to tolerate further decrease. Continue its judicious use. She has not been taking hydroxyzine for a while; Will resume today to be taken prn for anxiety. She was able to contract her safety today. Assessment & Plan (12/12/2022 7:11 AM EDT): [facility] provider: [facility] Current medications: amitriptyline, trazodone, and hydroxyzine Previously receiving in-home therapy / outreach through [facility]. She has a therapy dog. Although amitriptyline is high dose for her age, pt was unable to tolerate further decrease. Continue its judicious use. She has not been taking hydroxyzine for a while; Will resume today to be taken prn for anxiety. She was able to contract her safety today. Assessment & Plan (08/14/2022 6:32 PM EDT): [facility] provider: [facility] Current medications: amitriptyline, trazodone, and hydroxyzine Previously receiving in-home therapy / outreach through [facility]. She has a therapy dog. Although amitriptyline is high dose for her age, pt was unable to tolerate further decrease. Continue its judicious use. She has not been taking hydroxyzine for a while; Will resume today to be taken prn for anxiety. She was able to contract her safety today. Vitamin D deficiency 06/30/2015 Assessment & Plan (11/03/2024 9:04 AM EDT): - continue vitamin D supplement Assessment & Plan (04/29/2024 5:49 PM EST): - continue vitamin D supplement Assessment & Plan (06/13/2023 5:06 PM EST): - continue vitamin D supplement - ordering DEXA Impaired fasting glucose 08/01/2014 Assessment & Plan (11/03/2024 9:04 AM EDT): -2018 A1C 6.0% -10/04/23 A1C 5.9% -occasional prednisone use for gout and COPD exacerbation -Continue lifestyle modifications Assessment & Plan (04/29/2024 5:50 PM EST): [...] exacerbation -Continue lifestyle modifications COPD with asthma ([facility]) 07/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 -last hospitalization for COPD exacerbation, 08/12-08/13/18, treated with steroid, doxycycline, and added Spiriva. -last hospitalization for Pnuemonia after RUL lobectomy in 11/2021, recieved Abx and steroid. -continue umeclidinium - vilanterol inhaler as maintenance. -continue mometasone inhaler as maintenance -continue Albuterol HFA, prn. -continue current effort to maintain non-smoking status. Assessment & Plan (11/03/2024 9:05 AM EDT): -[facility], last seen on 10/03/23, annual follow up. -last hospitalization for COPD exacerbation, 08/12-08/13/18, treated with steroid, doxycycline, and added Spiriva. -last hospitalization for Pnuemonia after RUL lobectomy in 11/2021, recieved Abx and steroid. -continue umeclidinium - vilanterol inhaler as maintenance. -continue mometasone inhaler as maintenance -continue Albuterol HFA, prn. -continue current effort to maintain non-smoking status. Assessment & Plan (04/29/2024 5:47 PM EST): -[facility], last seen on 10/03/23, annual follow up. -last hospitalization for COPD exacerbation, 08/12-08/13/18, treated with steroid, doxycycline, and added Spiriva. -last hospitalization for Pnuemonia after RUL lobectomy in 11/2021, recieved Abx and steroid. -continue umeclidinium - vilanterol inhaler as maintenance. -continue mometasone inhaler as maintenance -continue Albuterol HFA, prn. -continue current effort to maintain non-smoking status. Assessment & Plan (09/22/2023 9:55 AM EDT): -[facility], last seen on 09/29/22. -last hospitalization for COPD exacerbation, 08/12-08/13/18, treated with steroid, doxycycline, and added Spiriva. -last hospitalization for Pnuemonia after RUL lobectomy in 11/2021, recieved Abx and steroid. -continue umeclidinium - vilanterol inhaler as maintenance. -continue mometasone inhaler as maintenance -continue Albuterol HFA, prn. -continue current effort to maintain non-smoking status. Assessment & Plan (06/13/2023 5:00 PM EST): -[facility], last seen on 09/29/22. -last hospitalization for COPD exacerbation, 08/12-08/13/18, treated with steroid, doxycycline, and added Spiriva. -last hospitalization for Pnuemonia after RUL lobectomy in 11/2021, recieved Abx and steroid. -continue umeclidinium - vilanterol inhaler as maintenance. -continue mometasone inhaler as maintenance -continue Albuterol HFA, prn. -continue current effort to maintain non-smoking status. Assessment & Plan (12/12/2022 7:15 AM EDT): -[facility], last seen on 09/29/22. -last hospitalization for COPD exacerbation, 08/12-08/13/18, treated with steroid, doxycycline, and added Spiriva. -last hospitalization for Pnuemonia after RUL lobectomy in 11/2021, recieved Abx and steroid. -continue Anoro as maintenance. -continue Albuterol HFA, prn. -continue current effort to maintain non-smoking status. Assessment & Plan (08/14/2022 6:28 PM EDT): -[facility], last seen on 02/25/22. -last hospitalization for COPD exacerbation, 08/12-08/13/18, treated with steroid, doxycycline, and added Spiriva. -last hospitalization for Pnuemonia after RUL lobectomy in 11/2021, recieved Abx and steroid. -continue Spiriva as maintenance. -continue Flovent as maintenance. -continue Albuterol HFA, prn. -continue current effort to maintain non-smoking status. Allergic rhinitis 03/08/2012 Dyslipidemia 03/08/2012 Assessment & Plan (02/05/2025 9:15 AM EDT): Current medication: Rosuvastatin 5 mg qhs Last lipid profile: 10/04/24 Continue working on lifestyle modificationCurrent medication: Rosuvastatin 5 mg qhs Assessment & Plan (11/03/2024 9:07 AM EDT): Current medication: Rosuvastatin 5 mg qhs Last lipid profile: 10/04/24 Continue working on lifestyle modification Assessment & Plan (04/29/2024 5:52 PM EST): [...] lipid profile Hypertension 03/08/2012 Assessment & Plan (02/05/2025 9:22 AM EDT): -Goal BP < 130 per ACC/AHA guideline (Treatment threshold >= 130) -BP not at goal in the clinic, but normal at home (per patient) -Continue working on lifestyle modifications -Recommended self-monitoring BP. -continue losartan 100 mg daily -continue amlodipine 5 mg daily (probably no further increase due to leg swelling) -add torsemide 5 mg daily -previously on HCTZ, which was discontinued due to gout - Follow-up for BP check in 3 to 4 weeks. CDTM. Assessment & Plan (11/16/2024 11:17 AM EDT): -Goal BP < 130 per ACC/AHA guideline (Treatment threshold >= 130) -BP not at goal in the clinic, but normal at home (per patient) -Continue working on lifestyle modifications -Recommended self-monitoring BP. -continue losartan 100 mg daily -continue amlodipine 5 mg daily (probably no further increase due to leg swelling) -previously on HCTZ, which was discontinued due to gout - Follow-up for BP check in 3 to 4 weeks. If home systolic BP is frequently greater than 130 and/your clinic SBP is greater than 140 (home SBP usually above 120), then add furosemide 20 mg daily. Consider combo medication losartan - amlodipine. Will schedule BP check in 3-4 wks if medication is changed. Assessment & Plan (04/29/2024 5:48 PM EST): [...] Insomnia 03/08/2012 Obesity 03/08/2012 Assessment & Plan (11/03/2024 9:04 AM EDT): She explains how she is making lifestyle changes - She bought a bike for more exercise - She is eating more fruits and vegetables (no rice or bread) Assessment & Plan (04/30/2024 5:12 PM EST): She explains how she is making lifestyle changes - She bought a bike for more exercise - She is eating more fruits and vegetables (no rice or bread) Encounters Date Type Department Care Team Description 03/04/2025 Telephone [facility] [address] [address] Renea King MD telephone call 02/28/2025 Telephone [facility] [address] [address] Renea King MD 02/28/2025 Refill [facility] [address] [place] [address] Renea King MD Primary hypertension 02/24/2025 Refill [facility] [address] [place] [address] Renea King MD 01/28/2025 3:15 PM EDT Office Visit [facility] [address] [place] [address] Renea King MD Chronic pain of right ankle (Primary Dx); Primary hypertension; Dyslipidemia; Dietary counseling; Exercise counseling; Class 2 severe obesity due to excess calories with serious comorbidity and body mass index (BMI) of 38.0 to 38.9 in adult ([facility]); Malignant neoplasm of upper lobe of right lung ([facility]); Gout, unspecified cause, unspecified chronicity, unspecified site; Acute right ankle pain; COPD with asthma ([facility]) 01/28/2025 Travel 01/27/2025 Refill [facility] [address] [place] [address] Renea King MD Anxiety 01/25/2025 Telephone [facility] [address] [place] [address] Yohana Aden MA 01/25/2025 Orders Only [facility] [address] [place] [address] Renea King MD Primary hypertension (Primary Dx) 01/25/2025 Telephone [facility] [address] [place] [address] Renea King MD 01/02/2025 Refill [facility] [address] [place] [address] Renea King MD 12/30/2024 Refill [facility] [address] [place] [address] Renea King MD 12/24/2024 Orders Only [facility] External Provider, [facility] from Last 3 Months Immunizations Immunization Administration Dates Next Due Influenza High-dose Quadrivalent [...] housing situation today? I have mike may 01/28/[address] you li ve. Do you have problems with any of the following? None of the above 01/28/2025 Food Insecurity Answer Date Recorded Within the past 12 months, y ou worried that your food would run out before you got money to buy more: Never True 01/28/2025 Within the past 12 months,th e food you bought just didn't last and you didn't have enough money to get more: Never True Transportation Answer Date Recorded In the past 12 months, has l ack of transportation kept you from medical appts, meetings, work or from getting things needed for daily living? No 01/28/2025 Utilities Answer Date Recorded In the past 12 months, has t he electric, gas, oil or water company threatened to shut off services in your home? No 01/28/2025 Depression Answer Date Recorded Patient Health Questionnaire-2 Score 2 11/01/2024 Internet Access Answer Date Recorded Internet Access Q1 No 01/28/2025 Internet Access Q2 I do not want or need it 01/08 Comments No Sex and Gender Information Value Date Recorded Sex Assigned at Female 03/08/2022 10:21 AM EDT Legal Sex Female 10:21 AM EDT Gender Identity Female 03/08/2022 10:21 AM EDT Sexual Orientation Choose not to disclose 2021 10:21 AM EDT Last Filed Vital Signs Vital Sign Reading Time Taken Comments Blood Pressure 140/80 01/28/2025 3:18 PM EDT Pulse 87 01/28/2025 3:06 PM EDT Temperature 37.2 C (98.9 F) 01/28/2025 3:06 PM EDT Respiratory Rate 20 01/28/2025 3:06 PM EDT Oxygen Saturation 98% 01/28/2025 3:06 PM EDT Inhaled Oxygen Concentration - - Weight 95.9 kg (211 lb 6.4 oz) 01/28/2025 3:06 P M EDT Height 157.5 cm (5' 2 ) 11/01/2024 11:25 AM EDT Body Mass Index 38.67 11/01/2024 11:25 AM EDT Plan of Treatment Upcoming Encounters Date Type Department Care Team (Late st Contact Info) Description 03/29/2025 1:00 PM EST Office Visit [facility] [address] [place] [address] Milad, Angela, OD [address] [place] [address] Health Maintenance Due Date Last Done Comments Dental Prophylaxis 1945 Dental X-Ray: Bitewings 1945 Dental X-Ray: Full Mouth 1945 Dental Oral Exam 11/05/2020 05/06/2020 COVID-19 Vaccine ( season) 2025 03/25/2021, 07/18/2020, 06/20/2020 Influenza Vaccine (#1) 2025 2, 01/20/2021, 02/25/2020, Additional history exists Alcohol/Substance Use Screening 10/03/2025 10/03/2024 Diabetes: Hemoglobin A1C 10/04/2025 025, 10/04/2023, 08/03/2022, Additional history exists Depression Screening 11/01/2025 11/01/2024, 06/26/20 25 SDOH Screening 01/28/2026 01/28/2025 Tobacco Screening 02/05/2026 02/05/2025 Lipid Panel 10/04/2029 10/04/2024, 09/07, 08/03/2022 DTaP/Tdap/Td Vaccines (3 - Td or [...] Author Blood Pressure < 150/90 Blood Pressure 140/80( 025 3:18 PM EDT) No Shen Blakely, Rom Procedures Procedure Name Priority Date/Time Associated Diagnosis Comments CT CHEST WO CONTRAST Routine 12/25/2024 9:41 PM EDT HEMOGLOBIN A1C Routine 10/04/2024 12:48 PM EDT Impaired fasting glucose LIPID PANEL WITH REFLEX TO DIRECT LDL Routine 10/04/2024 12:48 PM EDT Dyslipidemia PERIODIC ORAL EVALUATION - ESTABLISHED PATIENT Routine 05/06/2020 12:00 AM EST from Last 3 Months or Most Recently Relevant to Health Maintenance Results * CT Chest w/o Contrast (12/25/2024 9:41 PM EDT) Anatomical Region Laterality Modality Body, Chest Computed Tomogra phy 12/25/2024 9:41 PM EDT Narrative 12/25/2024 9:43 PM EDT [address] [address] [address] Scan Report Signed Patient: Kim Hood MR#: [id number] : 1945 Acct:[id number] Age/Sex: 79 / F ADM Date: 12/24/24 Loc: HO.CT Attending Dr: Fred Garcia MD Ordering Physician: Fred Garcia MD Date of Service: 12/24/24 Procedure(s): CT chest wo IV con Accession Number(s): [id number] cc: Fred Garcia MD; Renea King MD Report Number: [id number]: Total DLP = 219.00 mGy-cm CLINICAL HISTORY: C34.90 - Malignant neoplasm of unspecified part of unspecified bronchus ... CT chest without contrast Comparison: 12/17/2022 Findings: Lung suarez are clear without acute infiltrates. Stable areas of linear scarring on right. No significant mediastinal adenopathy. No significant free pleural fluid. No significant focal bony abnormalities. Impression: No acute processes This document has been electronically signed by: Rigoberto Bay MD on 12/25/2024 21:41:48 Dictated By: Rigoberto Bay MD Signed By: <Electronically signed by Rigoberto Bay MD in OV> 12/25/242141 DD/ 40 TD/TT: 12/25/242140 Charging Plug Placer: Procedure Note Donotuseinterpreter, Image - 12/25/[address] [address] [address] Scan Report Signed Patient: Aldair HoodR#: [id number] : 5Acct:[id number] Age/Sex: 79 / FADM Date: 12/24/24 Loc: HO.CT Attending Dr: Fred Garcia MD Ordering Physician: Fred Garcia MD Date of Service: 12/24/24 Procedure(s): CT chest wo IV con Accession Number(s): [id number] cc: Fred Garcia MD; Renea King MD Report Number: [id number]: Total DLP = 219.00 mGy-cm CLINICAL HISTORY: C34.90 - Malignant neoplasm of unspecified part ofunspecified bronchus ... CT chest without contrast Comparison: 12/17/2022 Findings: Lung suarez are clear without acute infiltrates. Stable areas of linear scarring on right. No significant mediastinal adenopathy. No significant free pleural fluid. No significant focal bony abnormalities. Impression: No acute processes This document has been electronically signed by: Rigoberto Bay MD on 12/25/2024 21:41:48 Dictated By: Rigoberto Bay MD Signed By: <Electronically signed by Rigoberto Bay MD in OV> 12/25/242141 DD/ 40 TD/TT: 12/25/242140 Charging Plug Placer: [facility] External Provider IMG CT PROCEDURES Final Result * (ABNORMAL) Lipid Panel with Reflex to Direct LDL (10/04/2024 12:48 PM EDT) Triglycerides 193(H) <150 mg/dL [facility] Comment:Desirable Triglyceri de: less than 150 mg/dLBorderline High Triglyceride 150-199 mg/dLHigh Triglyceride: 200-499 mg/dLVery High Triglyceride: greater than or equal to 5OO mg/dL Cholesterol 162 <200 mg/dL [facility] Comment:Desirable Cholestero l: less than 200 mg/dLBorderline High Cholesterol: 200-239 mg/dLHigh Cholesterol: greater than 239 mg/dL LDL Cholesterol Calculated 62 <100 mg/dL [facility] Comment:Desirable LDL: less than 100 mg/dLNear Optimal/Above Optimal LDL: 110- 129 mg/dLBorderline High LDL: 130-159 mg/dLHigh LDL: 160-189 mg/dLVery High LDL: greater than or equal to 190 mg/dL HDL Cholesterol 62 >40 mg/dL [facility] Comment:Desirable HDL: great er than 40 mg/dL Note: This HDL assay may give artificially low results in patients with liver disease. Blood 10/04/2024 12:4 8 PM EDT 10/04/2024 4:02 PM EDT us Renea King MD LAB BLOOD ORDERABLES Final Resul t Performing Organization Address City/[facility]/ZIP Co de Phone Number [facility] [address] [place] [phone] * Hemoglobin A1c (10/04/2024 12:48 PM EDT) Hemoglobin A1c 6.0 <6.0 % [facility] [...] patient sample. Estimated Average Glucose 126 mg/dL [facility] Comment:eAG = Estimated ave rage glucose which is %A1C expressed asaverage glucose, using the formula of the C0B-FfuasizTauofsm Glucose study (ADAG), Diabetes Care, Vol.31,#8,Dec. 2007 Blood Venous blood specimen / Unknown 10/04/2024 12:48 PM EDT 10/04/2024 4:02 PM EDT us Renea King MD LAB BLOOD ORDERABLES Final Resul t Performing Organization Address [facility] Co de Phone Number [facility] [address] [place] [phone] from Last 3 Months or Most Recently Relevant to Health Maintenance Insurance [facility] DUAL COMPLETE Care Teams Heater Furnace Relationship Specialty Start Date End Date Renea King MD [address] [place] [address] PCP - General Family Medicine 05/09/18 Shen Blakely, PharmD [address] [place] [address] Pharmacist Internal Medicine 03/11/23
--- OUTSIDE RECORDS SUMMARY | 2025-03-21 16:23 | XMS_ITS | Encounter Summary ---
Author Organization [employer] Address [address] [place] [address] 7 [place] [address] Care Team Providers Care Basket Machine Operator Name Role Phone Renea King MD Primary Care Provider [phone] Shen Blakely PharmD Unavailable [phone] Reason for Visit * Reason Onset Date Comments FYI 01/13/2023 Encounter Details Date Type Department Care Team (Late st Contact Info) Description 01/13/2023 Telephone [facility] MEDICINE [address] [place], [place] [phone] Renea King MD [address] [place], [place] [phone] FYI Social History Tobacco Use Types Packs/Day [...] 01/13/2023 1:25 PM EDT Tc from Tiffani CONCRETE POURER with [employer] informing that she have [...] If any questions please contact Tiffani at [phone] documented in this encounter Plan of Treatment Upcoming Encounters Date Type Department Care Team (Late st Contact Info) Description 03/29/2025 1:00 PM EST Office Visit [facility] OPTOMETRY [address] [place] [address] Milad, Angela, OD [address] [place] [address] documented as of this encounter Visit Diagnoses Not on filedocumented in this encounter Additional Health Concerns Assessment Noted Time PHQ-9 Depression Total Score: 10 08/03/ 023 1:24 PM EDT documented as of this encounter Care Teams Basket Machine Operator Relationship Specialty Start Date End Date Renea King MD [address] [place] [address] PCP - General Family Medicine 05/09/18 Shen Blakely, ChristopherD [address] [place] [address] Pharmacist Internal Medicine 03/11/23 documented as of this encounter
--- OUTSIDE RECORDS SUMMARY | 2025-03-21 16:23 | XMS_ITS | Encounter Summary ---
Author Organization [employer] Address [address] [place] [address] 7 [place] [address] Care Team Providers Care Wax Pattern Repairer Name Role Phone Renea King MD Primary Care Provider [phone] Shen Blakely PharmD Unavailable [phone] Encounter Details Date Type Department Care Team (Late st Contact Info) Description 06/10/2022 Orders Only [facility] MED & PEDS [address] [place] [id number] Mary Lou Gautam LPN Social History Tobacco [...] Description 03/29/2025 1:00 PM EST Office Visit [facility] OPTOMETRY [address] [place] [address] Milad, Angela, OD [address] [place] [address] documented as of this encounter Visit Diagnoses Not on filedocumented in this encounter Care Teams Wax Pattern Repairer Relationship Specialty Start Date End Date Renea King MD [address] [place] [address] PCP - General Family Medicine 1/1/19 Shen Blakely, PharmD [address] [place] [address] Pharmacist Internal Medicine 03/11/23 documented as of this encounter
--- OUTSIDE RECORDS SUMMARY | 2025-03-21 16:23 | XMS_ITS | Clinical Summary ---
Author Organization [facility] Address [address] [place] [address] Phone Care Team Providers Care Feltmaker Name Role Phone Renea King MD Primary Care Provider [phone] Medications simvastatin (ZOCOR) 20 mg tablet Take 1 tablet (20 mg total) by mouth at bedtime. Active sertraline (ZOLOFT) 25 mg tablet Take 1 tablet (25 mg total) by mouth. Active losartan (COZAAR) 100 mg tablet Take 1 tablet (100 mg total) by mouth 1 (one) time each day in the morning. Active hydroCHLOROthia zide (HYDRODIURIL) 25 mg tablet Take 1 tablet (25 mg total) by mouth. Active cetirizine (ZyrTEC) 10 mg capsule Take 1 capsule (10 mg total) by mouth. Active fluticasone HFA (FLOVENT HFA) 110 mcg/actuation inhaler Inhale 1 puff by mouth. Active fluticasone propionate (FLONASE) 50 mcg/actuation nasal spray Administer 1 spray into each nostril 1 (one) time each day. Active amitriptyline (ELAVIL) 75 mg tablet Take 1 tablet (75 mg total) by mouth. at bedtime. Active aspirin 81 mg chewable tablet Chew 1 tablet (81 mg total). Active Encounters Date Type Department Care Team Description 02/11/2025 Telephone Thoracic Surgery - [place] [facility] [address] [place] [address] Christal Quigley [place] 01/10/2025 Telephone Lung Screening Program - [address] [place] [address] Olimpia Quevedo MA from Last 3 Months Surgical History Surgery Date Site/Laterality Comments CHOLECYSTECTOMY PROCEDURE: HISTORICAL CHOLECYSTECTOMY HYSTERECTOMY N/A PROCEDURE: HISTORICAL HYSTERECTOMY NEPHRECTOMY Right PROCEDURE: HISTORICAL NEPHRECTOMY OTHER SURGICAL HISTORY 11/11/2021 Right PROCEDURE: [place] BRONCHOSCOPY W/CPTR-ASST IMAGE-GUIDED NAVIGATION OTHER SURGICAL HISTORY 11/11/2021 Right PROCEDURE: [place] THORACOSCOPY W/DX WEDGE RESEXN ANATO LUNG RESEXN; COMMENT: right upper Medical History Medical History Date Comments Allergic rhinitis due to pollen DX:Allergic rhinitis due to pollen Arrhythmia DX:Arrhythmia COPD (chronic obstructive pu lmonary disease) ([facility] V24, [facility] V28) DX:COPD (chronic o bstructive pulmonary disease) ([facility]) Depression DX:Depression Elevated cholesterol DX:Elevated cholesterol GERD (gastroesophageal reflux disease) DX:GERD (gastroesophageal reflux disease) HTN (hypertension) DX:HTN (hyper tension) Hx of renal calculi DX:Hx of chai al calculi Pre-diabetes DX:Pre-diabetes Smoking addiction DX:Smoking add iction Tubular adenoma of colon DX:Tubu lar adenoma of colon Lung cancer ([facility] V24, [facility] V28) 12/03/2021 DX:Lung cancer ([facility]) Social History Tobacco Use Types Packs/Day Years Used Date Smoking Tobacco: Former Cigarettes 1 59.5 0 05/09/1962 - 11/06/2021 Smokeless Tobacco: Never Comments Unknown Sex and Gender Information Value Date Recorded Sex Assigned at Female 12/26/2024 9:22 PM EDT Legal Sex Female 2:00 AM EST Gender [...] complete this topic Insurance [employer] [address] MEDICAID - [place] Advance Directives Documents on File Type Date Recorded 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
--- OUTSIDE RECORDS SUMMARY | 2025-03-21 16:23 | XMS_ITS | Encounter Summary ---
Author Organization [employer] Address [address] [place] [address] Care Team Providers Care Social Media Analyst Name Role Phone Renea King MD Primary Care Provider [phone] Shen Blakely PharmD Unavailable [phone] Encounter Details Date Type Department Care Team (Late st Contact Info) Description 06/14/2022 Abstract [facility] MEDICINE [address] [place], [place] [phone] Renea King MD [address] [place] [address] Social History Tobacco Use Types Packs/Day Years [...] Description 03/29/2025 1:00 PM EST Office Visit [facility] OPTOMETRY [address] [place], [place] [phone] Angela Stinson, OD [address] [place] [address] documented as of this encounter Visit Diagnoses Not on filedocumented in this encounter Care Teams Social Media Analyst Relationship Specialty Start Date End Date Renea King MD [address] [place] [address] PCP - General Family Medicine 05/09/18 Shen Blakely, ChristopherD [address] [place] [address] Pharmacist Internal Medicine 03/11/23 documented as of this encounter
--- OUTSIDE RECORDS SUMMARY | 2025-03-21 16:23 | XMS_ITS | Encounter Summary ---
Author Organization [employer] Address [address] [place] [address] [address] [place] [address] Care Team Providers Care Service Unit Operator Oil Well Name Role Phone Renea King MD Primary Care Provider [phone] Shen Blakely PharmD Unavailable [phone] Reason for Referral * Consultation (Routine) - Authorized Specialty Diagnoses / Procedures Referred By Contac t Referred To Contact Pharmacy Diagnoses Primary hypertension Renea King MD [address] [place] [address] Phone: tel: fax: Referral ID Status Reason Start Date Expiration Date Visits Requested Visits Authorized [id number] Authorized Consult and Treat 01/25/2025 01/25/2026 6 6 Encounter Details Date Type Department Care Team (Late st Contact Info) Description 01/25/2025 Orders Only [facility] MEDICINE [address] [place] [phone] Renea King MD [address] [place], [place] [phone] Primary hypertension (Primary Dx) Social History Tobacco Use Types Packs/Day Years [...] your housing situation today? I have mike amy 01/28/[address] you li [...] Description 03/29/2025 1:00 PM EST Office Visit [facility] OPTOMETRY [address] [place] [address] MiladAngela ortiz, OD [address] [place] [address] Scheduled Referrals Name Type Priority Associated Diagnoses Orde r Schedule Referral to Pharmacy CDTM Outpatient Referral Routine Primary hypertension Ordered: 01/25/2025 documented as of this encounter Goals Goal Patient Goal Type Associated Problems Recent Progress Patient-Stated? Author Blood Pressure < 150/90 Blood Pressure 140/80( 025 3:18 PM EDT) No Shen Blakely, PharmD documented as of this encounter Visit Diagnoses Diagnosis Primary hypertension- Primary Unspecified essential hypertension documented in this encounter Additional Health Concerns Assessment Noted Time PHQ-9 Depression Total Score: 5 11/02/19 25 11:25 AM EDT documented as of this encounter Care Teams Service Unit Operator Oil Well Relationship Specialty Start Date End Date Renea King MD [address] [place] [address] PCP - General Family Medicine 05/09/18 Shen Blakely, PharmD [address] [place] [address] Pharmacist Internal Medicine 03/11/23 documented as of this encounter
--- OUTSIDE RECORDS SUMMARY | 2025-03-21 16:23 | XMS_ITS ---
Author Name Lilo Aguilar NP Address [address] [place] [address] Phone [phone] [facility] Care Team Providers Care Freight Broker Name Role Phone Lilo Aguilar Unavailable [phone] Fred Garcia Unavailable [phone] Reason for Referral Not Available Allergies, adverse [...] (do not use for phone, instead use 30344-62) [facility] [place] Unspecified asthma, uncomplicatedInsomnia, unspecifiedHyperlipidemia, unspecifiedVitamin D deficiency, unspecifiedAnxiety disorder, unspecifiedDepression, unspecifiedConstipation, unspecifiedOther specified postprocedural states New patient,40-59min; chronic exacerbation, 2 stable chronic or 1 acute illness add add modifier 95 for video (do not use for phone, instead use 06899-15) [facility] New patient,40-59min; chronic exacerbation, 2 stable chronic or 1 acute illness add add modifier 95 for video (do not use for phone, instead use 04962-86) [facility] [place] New patient,40-59min; chronic exacerbation, 2 stable chronic or 1 acute illness add add modifier 95 for video (do not use for phone, instead use 88279-88) [facility] [place]07[place]20[place] New patient,40-59min; chronic exacerbation, 2 stable chronic or 1 acute illness add add modifier 95 for video (do not use for phone, instead use 68026-86) [facility] [place]07[place]20[place] New patient,40-59min; chronic exacerbation, 2 stable chronic or 1 acute illness add add modifier 95 for video (do not use for phone, instead use 02159-81) [facility] [place] 04[place]07[place]20[place] New patient,40-59min; chronic exacerbation, 2 stable chronic or 1 acute illness add add modifier 95 for video (do not use for phone, instead use 11888-80) [facility] [place] 04[place]07[place]20[place] New patient,40-59min; chronic exacerbation, 2 stable chronic or 1 acute illness add add modifier 95 for video (do not use for phone, instead use 31912-56) [facility] [place] 04[place]07[place]20[place] New patient,40-59min; chronic exacerbation, 2 stable chronic or 1 acute illness add add modifier 95 for video (do not use for phone, instead use 16067-56) [facility] [place] 04[place]07/2022 Estab. patient 30-39min; chronic exacerbation, 2 stable chronic or 1 acute illness add add modifier 95 for video, (do not use for phone, instead use 98423-82) [facility] [place] 05[place]14[place]2022 Other specified postprocedur al statesUnspecified asthma, uncomplicatedInsomnia, unspecifiedHyperlipidemia, unspecifiedVitamin D deficiency, unspecifiedAnxiety disorder, unspecifiedMajor depressive disorder, single episode, in partial remissionConstipation, unspecifiedEssential (primary) hypertensionGout, unspecified Estab. patient 30-39min; chronic exacerbation, 2 stable chronic or 1 acute illness add add modifier 95 for video, (do not use for phone, instead use 41108-83) [facility] [place] 05[place]/20[place] Estab. patient 30-39min; chronic exacerbation, 2 stable chronic or 1 acute illness add add modifier 95 for video, (do not use for phone, instead use 23972-95) [facility] [place] 05/14/2022 Estab. patient 30-39min; chronic exacerbation, 2 stable chronic or 1 acute illness add add modifier 95 for video, (do not use for phone, instead use 88632-54) [facility] [place] 05[place]14/2022 Estab. patient 30-39min; chronic exacerbation, 2 stable chronic or 1 acute illness add add modifier 95 for video, (do not use for phone, instead use 54274-70) [facility] [place] Estab. patient 30-39min; chronic exacerbation, 2 stable chronic or 1 acute illness add add modifier 95 for video, (do not use for phone, instead use 67115-90) [facility] [place] Estab. patient 30-39min; chronic exacerbation, 2 stable chronic or 1 acute illness add add modifier 95 for video, (do not use for phone, instead use 68310-96) [facility] [place] 05/14[place]2022 No Data Available [facility] [place] 06/23/2022 Other specified postprocedur al statesUnspecified asthma, uncomplicatedInsomnia, unspecifiedHyperlipidemia, unspecifiedVitamin D deficiency, unspecifiedAnxiety disorder, unspecifiedMajor depressive disorder, single episode, in partial remissionConstipation, unspecifiedEssential (primary) hypertensionGout, unspecified No Data Available [facility] ([place] 06/23/2022 No Data Available [facility] [place] 06/23/2022 Unlisted special service; to be used for medical record reviews and reporting CPTII codes (1111F, etc) [facility] ([place] 03/11/2023 Other specified health statu s Unlisted special service; to be used for medical record reviews and reporting CPTII codes (1111F, etc) [facility] [place] 03/11/2023 Unlisted special service; to be used for medical record reviews and reporting CPTII codes (1111F, etc) [facility] [place] 03/11/2023 Estab. patient 30-39min; chronic exacerbation, 2 stable chronic or 1 acute illness add add modifier 95 for video, (do not use for phone, instead use 61281-96) [facility] [place] 12/30/2023 Malignant neoplasm of upper lobe, right [...] (do not use for phone, instead use 37132-16) [facility] [place] 12/30/2023 Estab. patient 30-39min; chronic exacerbation, 2 stable chronic or 1 acute illness add add modifier 95 for video, (do not use for phone, instead use 30283-63) [facility] [place]20[place] Estab. patient 30-39min; chronic exacerbation, 2 stable chronic or 1 acute illness add add modifier 95 for video, (do not use for phone, instead use 88839-26) [facility] [place] 12[place]20[place] Estab. patient 30-39min; chronic exacerbation, 2 stable chronic or 1 acute illness add add modifier 95 for video, (do not use for phone, instead use 93933-44) [facility] [place] 12[place]20[place] Estab. patient 30-39min; chronic exacerbation, 2 stable chronic or 1 acute illness add add modifier 95 for video, (do not use for phone, instead use 75992-39) [facility] [place] 12/[place]/20[place] Estab. patient 30-39min; chronic exacerbation, 2 stable chronic or 1 acute illness add add modifier 95 for video, (do not use for phone, instead use 53479-75) [facility] [place] 12/[place]/20[place] Estab. patient 30-39min; chronic exacerbation, 2 stable chronic or 1 acute illness add add modifier 95 for video, (do not use for phone, instead use 15878-12) [facility] [place] 12[place]20[place] Estab. patient 30-39min; chronic exacerbation, 2 stable chronic or 1 acute illness add add modifier 95 for video, (do not use for phone, instead use 63567-34) [facility] [place] 12[place]2023 Estab. patient 30-39min; chronic exacerbation, 2 stable chronic or 1 acute illness add add modifier 95 for video, (do not use for phone, instead use 15585-12) [facility] [place] 12/[place]2023 Estab. patient 20-29min; 1 stable chronic or 2 minor; add add modifier 95 for video, modifier 93 for phone [facility] [place] 07/23/2024 Other specified chronic obstructive [...] 95 for video, modifier 93 for phone [facility] [place] 07/23/2024 Estab. patient 20-29min; 1 stable chronic or 2 minor; add add modifier 95 for video, modifier 93 for phone [facility] [place] [facility] Estab. patient 20-29min; 1 stable chronic or 2 minor; add add modifier 95 for video, modifier 93 for phone [facility] [place] Estab. patient 20-29min; 1 stable chronic or 2 minor; add add modifier 95 for video, modifier 93 for phone [facility] [place] Estab. patient 20-29min; 1 stable chronic or 2 minor; add add modifier 95 for video, modifier 93 for phone [facility] [place] Estab. patient 20-29min; 1 stable chronic or 2 minor; add add modifier 95 for video, modifier 93 for phone [facility] [place] Estab. patient 20-29min; 1 stable chronic or 2 minor; add add modifier 95 for video, modifier 93 for phone [facility] [place] Estab. patient 20-29min; 1 stable chronic or 2 minor; add add modifier 95 for video, modifier 93 for phone [facility] [place] 07/23/2024 Vital Signs Date [...] tive Time Current Smoking Status Former smoker 2025-03-09 3 Sex Female History of Procedures Procedures Service Procedure code Service date Servicing provider Phone# New patient,40-59min; chronic exacerbation, 2 stable chronic or 1 acute illness add add modifier 95 for video (do not use for phone, instead use 19315-21) 00562 2022-04-07 No Data Available No Data Availa [...] (do not use for phone, instead use 55013-72) 32922 2022-05-14 No Data Available No Data Availa [...] No Data Eugenia ilable No Data Available 35997 2022-06-23 No Data Available No Data Available Medication List Documented (1159F) 1159F 2022-06-23 No Data Available No Data Eugenia ilable Pain Assessment - Pain Documented on a Pain Scale (1125F) 1125F 2022-06-23 No Data Available No Data Eugenia ilable Unlisted special service; to be used for medical record reviews and reporting CPTII codes (1111F, etc) 25163 2023-03-11 No Data Available No Data Availa ble SBP < 130 (3074F) 3074F 2023-03-11 No Data Available No Data Available DBP <80 (3078F) 3078F 2023-03-11 No Data Available No Data Available Estab. patient 30-39min; chronic exacerbation, 2 stable chronic or 1 acute illness add add modifier 95 for video, (do not use for phone, instead use 06944-28) 13548 2023-12-30 No Data Available No Data Availa [...] 95 for video, modifier 93 for phone 19284 2024-07-23 No Data Available No Data Availa [...] week: 2022-05-14 ambulates with cane 2022-05-14 has patch sander at home 2022-05-14 Mental Status Status Date [...] modifier 95)Continue to see PCP. Follow-up with [facility] as needed for any acute or [...] the last month 2024-07-23 Open HEDIS Measure ila ahmadi: NO HEDIS MEASURES POPULATED IN [place] FOR 20242024-07-23 does talk to pcp, do es not want therapist.
--- OUTSIDE RECORDS SUMMARY | 2025-03-21 16:23 | XMS_ITS | Encounter Summary ---
Author Organization [employer] Address [address] [place] [address] [address] [place] [address] Care Team Providers Care Principal Examiner Name Role Phone Renea King MD Primary Care Provider [phone] Shen Blakely PharmD Unavailable [phone] Encounter Details Date Type Department Care Team (Late Contact Info) Description 05/14/2022 Orders Only [facility] MEDICINE [address] [place] [address] Joanne Long RN Social History Tobacco Use Types Packs/Day Years [...] Department Care Team (Late Contact Info) Description 03/29/2025 1:00 PM EST Office Visit [facility] OPTOMETRY [address] [place] [address] Angela Stinson, OD [address] [place] [address] documented as of this encounter Procedures Procedure Name Priority Date/Time Associated Diagnosis Comments BI MAMMOGRAM SCREENING TOMOSYNTHESIS BILATERAL Routine 06/08/2022 10:50 AM EST documented in this encounter Results * BI Mammogram Screening Tomosynthesis Bilateral (06/08/2022 10:50 AM EST) Anatomical Region Laterality Modality Breast Bilateral Mammography 06/08/2022 10:5 0 AM EST Narrative 06/09/2022 2:55 PM EST [facility] [address] [place], [place] [address] Mammography Report Signed Patient: Kim Hood MR#: [id number] : 1945 Acct:[id number] Age/Sex: 76 / F ADM Date: 06/08/22 Loc: HO.MAMMO Attending Dr: Renea King MD Ordering Physician: Renea King MD Results: 2Benign F indings Date of Service: 06/08/22 Follow Up: 1 Year From Orig inal Mammogram Procedure(s): MM tomosynthesis screening BI Accession Number(s): [id number] cc: Renea King MD EXAMINATION: MM SCREENING [...] in OV> 06/09/22 1452 DD/ 1050 TD/TT: Specialties Operator: TIFFANY Procedure Note Donotuseinterpreter, Image - 06/09/2022 [facility] [address] [place], [place] [address] Mammography Report Signed Patient: Paris Hood#: [id number] : 5Acct:[id number] Age/Sex: 76 / FADM Date: 06/08/22 Loc: HO.MAMMO Attending Dr: Renea King MD Ordering Physician: Renea King MDResults: 2Benign F indings Date of Service: 06/08/22Follow Up: 1 Year From Orig inal Mammogram Procedure(s): MM tomosynthesis screening BI Accession Number(s): [id number] cc: Renea King MD EXAMINATION: MM SCREENING [...] in OV> 06/09/22 1452 DD/ 1050 TD/TT: Specialties Operator: TIFFANY us [facility] External Provider IMG BI PROCEDURES Final Result documented in this encounter Visit Diagnoses Not on filedocumented in this encounter Care Teams Principal Examiner Relationship Specialty Start Date End Date Renea King MD [address] [place] [address] PCP - General Family Medicine 05/09/18 Shen Blakely, ChristopherD [address] [place] [address] Pharmacist Internal Medicine 03/11/23 documented as of this encounter
--- OUTSIDE RECORDS SUMMARY | 2025-03-21 16:23 | XMS_ITS | Encounter Summary ---
Author Organization [employer] Address [address] [place] [address] Care Team Providers Care Police Matron Name Role Phone Renea King MD Primary Care Provider [phone] Shen Blakely PharmD Unavailable [phone] Reason for Referral * Consultation (Routine) - Canceled Specialty Diagnoses / Procedures Referred By Contac t Referred To Contact Pharmacy Diagnoses Primary hypertension COPD with asthma (CMS/HCC) (HCC) Renea King MD [address] [place] [address] Phone: tel: fax: Referral ID Status Reason Start Date Expiration Date V isits Requested Visits Authorized [id number] Canceled Consult and Treat 02/17/2024 02/16/2025 6 6 Encounter Details Date Type Department Care Team (Late st Contact Info) Description 02/17/2024 Orders Only [facility] [address] [place], [place] [phone] Renea King MD [address] [place], [place] [phone] Primary hypertension (Primary Dx); COPD with asthma [...] 03/29/2025 1:00 PM EST Office Visit [facility] [address] [place] [address] Milad, Angela, OD [address] [place] [address] Scheduled Referrals Name Type Priority Associated Diagnoses Orde r Schedule Referral to Pharmacy CDTM Outpatient Referral Routine Primary hypertension COPD with asthma ([facility]/HCC) Ordered: 02/17/2024 documented as of this encounter [...] Sensitivity Troponin I (06/12/2024 7:58 PM EST) [facility] TROPONIN I HIGH SENSITIVITY <2.7 <3.5 - 17.0 ng/L [facility] Comment:The Barr high sens itivity Troponin-I results should beused in conjunction with other diagnostic information suchas ECG, clinical observations and information, and patientsymptoms to aid in the diagnosis of SC. 06/12/2024 7:58 PM EST 06/12/2024 8:03 PM EST us Generic External Data Provider LAB BLOOD ORDERAB LES Final Result Performing Organization Address City/[facility]/ZIP Co de Phone Number [facility] [address] [place] [phone] * Magnesium (06/12/2024 7:58 PM EST) [facility] Magnesium 2.2 1.6 - 2.6 mg/dL [facility] 06/12/2024 7:58 PM EST 06/12/2024 8:03 PM EST Generic External Data Provider LAB BLOOD ORDERAB LES Final Result Performing Organization Address [facility] Co de Phone Number [facility] [address] [place] [phone] * (ABNORMAL) Comprehensive Metabolic Panel (06/12/2024 7:58 PM EST) Sodium 142 135 - 145 mmol/L [facility] Potassium 4.2 3.3 - 5.1 mmol/L [facility] Chloride 102 96 - 108 mmol/L [facility] Carbon Dioxide 23 22 - 29 mmol/L [facility] Anion Gap 21(H) 12 - 20 [facility] Urea Nitrogen (BUN) 18(H) 9 - 16 mg/dL [facility] Creatinine, Serum 0.81 0.5 - 1.4 mg/dL [facility] Creatinine Clr Calc Pharmacy 60.5 [facility] Comment:Provided height and weight: 157.48 cm,95.254 kg.eGFR (calculated from the MDRD study equation) and eCrCl(calculated from the Cockcroft-Gault equation) are based ondifferent parameters and may not yield comparable results.If eCrCl result is absurd, please check patient'sheight/weight. Estimated Glomerular Filt Rate >60 [facility] Comment:Chronic Kidney Disea se: Estimated GFR < 60 mL/min/[id number] Kidney Disease: Estimated GFR < 15 mL/min/1.73m2 Glucose 126(H) 60 - 115 mg/dL [facility] Calcium 9.2 8.4 - 10.2 mg/dL [facility] Bilirubin, Total 0.4 0.0 - 1.0 mg/dL [facility] Aspartate Amino Transferase 19 5 - 31 U/L [facility] Alanine Aminotransferase 14 0 - 31 U/L [facility] Total Protein 7.7 6.5 - 8.0 g/dL [facility] Albumin Level 4.4 3.5 - 5.0 g/dL [facility] Alkaline Phosphatase 69 39 - 117 U/L [facility] 06/12/2024 7:58 PM EST 06/12/2024 8:03 PM EST us Generic External Data Provider LAB BLOOD ORDERAB LES Final Result [facility] [address] [place] [phone] * (ABNORMAL) Prothrombin Time-INR (06/12/2024 7:58 PM EST) [facility] Prothrombin Time 10.4(L) 10.9 - 12.4 SEC [facility] INTERNATIONAL NORM RATIO 0.9 0.9 - 1.1 [facility] Comment:INTERNATIONAL NORMAL IZED RATIO (INR) REFERENCE [...] Provider LAB BLOOD ORDERAB LES Final Result [facility] [address] [place] [address] [phone] * (ABNORMAL) CBC auto differential (06/12/2024 7:58 PM EST) [facility] White Blood Count 14.9(H) 4.8 - 10.8 X10*3/uL [facility] Red Blood Count 4.33 4.20 - 5.50 X10*6/uL [facility] Hemoglobin 12.4 12.0 - 16.0 g/dl [facility] Hematocrit 38.0 37.0 - 47.0 % [facility] Mean Corpuscular Volume 87.8 80.0 - 98.0 fL [facility] Mean Corpuscular Hemoglobin 28.6 27.0 - 33.0 pg [facility] Mean Corpuscular HGB Conc 32.6 31.0 - 35.0 g/dl [facility] Red Cell Distribution Width 14.3 11.0 - 16.0 % [facility] Platelet Count 306 160 - 400 X10*3/uL [facility] Mean Platelet Volume 9.6 9.4 - 12.3 fL [facility] Neutrophils Percent Auto 77.2(H) 45 - 73 % [facility] Imm Gran Pct Auto 0.4 0.0 - 0.4 % [facility] Lymphocytes Percent Auto 17.0(L) 20 - 40 % [facility] Monocytes Percent Auto 4.8 2 - 11 % [facility] Eosinophils Percent Auto 0.3 0 - 4 % [facility] Basophils Percent Auto 0.3 0 - 2 % [facility] NRBC Pct Auto 0.0 0.0 - 0.2 /100WBC [facility] Neutrophils Absolute Auto 11.5(H) 2.0 - 8.3 x10*3/uL [facility] Imm Gran Abs Auto 0.06(H) 0.00 - 0.03 X10*3/uL [facility] Lymphocytes Absolute Auto 2.5 1.2 - 4.9 X10*3/uL [facility] Monocytes Absolute Auto 0.7 0.1 - 1.2 X10*3/uL [facility] Eosinophils Absolute Auto 0.0 0.0 - 0.4 X10*3/uL [facility] Basophils Absolute Auto 0.1 0.0 - 0.2 X10*3/uL [facility] NRBC Abs Auto 0.000 0.0 - 0.012 X10*3/uL [facility] 06/12/2024 7:5 8 PM EST 06/12/2024 8:03 PM EST us Generic External Data Provider LAB BLOOD ORDERAB LES Final Result [facility] [address] [place] [phone] documented in this encounter Visit Diagnoses Diagnosis Primary hypertension- Primary Unspecified essential hypertension COPD with asthma (CMS/HCC) ([facility]) documented in this encounter Additional Health Concerns Assessment Noted Time PHQ-9 Depression Total Score: 10 023 1:24 PM EDT documented as of this encounter Care Teams Police Matron Relationship Specialty Start Date End Date Renea King MD [address] [place] [address] PCP - General Family Medicine 05/09/18 Shen Blakely, ChristopherD [address] [place] [address] Pharmacist Internal Medicine 03/11/23 documented as of this encounter
--- OUTSIDE RECORDS SUMMARY | 2025-03-21 16:23 | XMS_ITS | Encounter Summary ---
Author Organization [employer] Address [address] [place] [address] [address] [place] [address] Care Team Providers Care Sales Representative [employer] Name Role Phone Renea King MD Primary Care Provider [phone] Shen Blakely PharmD Unavailable [phone] Reason for Visit * Reason Onset Date Comments Appointment Request 12/29/2023 Encounter Details Date Type Department Care Team ([facility] st Contact Info) Description 12/29/2023 Telephone [facility] [address] [place], [place] [phone] Renea King MD [address] [place], [place] [phone] Appointment Request Social History Tobacco Use Types [...] Description 03/29/2025 1:00 PM EST Office Visit [facility] [address] [place] [address] Angela Stinson, OD [address] [place] [address] documented as of this encounter Goals Goal Patient Goal Type Associated Problems Recent Progress Patient-Stated? Author Blood Pressure < 150/90 Blood Pressure 140/80( 025 3:18 PM EDT) No Shen Blakely, Rom documented as of this encounter Visit Diagnoses Not on filedocumented in this encounter Additional Health Concerns Assessment Noted Time PHQ-9 Depression Total Score: 10 023 1:24 PM EDT documented as of this encounter Care Teams Sales Representative [employer] Relationship Specialty Start Date End Date Renea King MD [address] [place] [address] PCP - General Family Medicine 05/09/18 Shen Blakely, PharmD [address] [place] [phone] Pharmacist Internal Medicine 03/11/23 documented as of this encounter
== END 2025-03-21 13:46 | disposition home or self-care (01) ==
LOC: HO.HPODS 13:04
PROVIDERS: PCP Family Medicine; Visit Provider Student in an Organized Health Care Education/Training Program
DX: M19.071 Primary osteoarthritis, right ankle and foot (principal); M76.71 Peroneal tendinitis, right leg
CPT/HCPCS: 20605; 99204

== ENCOUNTER → 2025-03-21 13:03 | Outpatient (BNVA) | payer OTHER, SELFPAY | PROVIDERS: PCP Family Medicine; Visit Provider Student in an Organized Health Care Education/Training Program | DX: M19.071 Primary osteoarthritis, right ankle and foot (principal); M76.71 Peroneal tendinitis, right leg | CPT/HCPCS: 20605; 99202; J0665; J1100; J3301 ==